=== PATIENT | female | born 1970 | race Caucasian/White ===

== ENCOUNTER 2018-09-07 17:43 | Emergency (ER) | payer MEDICAID, OTHER ==
[~2018-09-07] VITALS: Ht 165.1 cm; Wt 103.4 kg
--- OUTSIDE RECORDS SUMMARY | 2018-09-07 17:49 | XMS REPORT | Continuity of Care Document ---
Author Organization Unknown Address Unknown Allergies There is no data. Medications There is no data. Problems There is no data. Procedures There is no data. Results Test Result Range CMP - 08/13/18 09:25 GLUCOSE 383 mg/dL 65-99 UREA NITROGEN (BUN) 14 mg/dL 7-25 CREATININE 0.71 mg/dL 0.50-1.05 eGFR NON-AFR. INDIAN 99 mL/min/1.73m2 > OR=60 eGFR 115 mL/min/1.73m2 > OR=60 BUN/CREATININE RATIO NOT APPLICABLE (calc) 6-22 SODIUM 128 mmol/L 135-146 POTASSIUM 4.5 mmol/L 3.5-5.3 CHLORIDE 97 mmol/L 98-110 CARBON DIOXIDE 22 mmol/L 20-32 CALCIUM 9.4 mg/dL 8.6-10.4 PROTEIN, TOTAL 6.6 g/dL 6.1-8.1 ALBUMIN 3.9 g/dL 3.6-5.1 GLOBULIN 2.7 g/dL (calc) 1.9-3.7 ALBUMIN/GLOBULIN RATIO 1.4 (calc) 1.0-2.5 BILIRUBIN, TOTAL 0.4 mg/dL 0.2-1.2 ALKALINE PHOSPHATASE 109 U/L 33-130 AST 10 U/L 10-35 ALT 10 U/L 6-29 A1C - 08/13/18 09:25 HEMOGLOBIN A1c 13.3 % of total Hgb <5.7 GLUCOSE, SERUM - 08/30/18 09:58 GLUCOSE 115 mg/dL 65-99 C-PEPTIDE, SERUM - 08/30/18 09:58 C-PEPTIDE 1.31 ng/mL 0.80-3.85 CULTURE, ANAEROBIC AND AEROBIC - 09/01/18 11:00 CULTURE, ANAEROBIC BACTERIA W/GRAM STAIN SEE NOTE NRG CULTURE, AEROBIC BACTERIA SEE NOTE NRG Encounters ACCT No. Visit Date/Time Discharge Status Pt. Type Provider Facility Loc./Unit Complaint [id number] 09/01/2018 11:30:00 09/01/2018 23:59:59 [facility], HUNG Diaz [facility] [id number] 09/01/2018 10:45:00 Document Registration [id number] 08/30/2018 10:00:00 Document Registration [id number] 08/13/2018 10:15:00 Document Registration
[2018-09-07 18:25] VITALS: BP 137/87
[2018-09-07] MEDS ORDERED: KETOROLAC 60 MG/2 ML VIAL IM STA (18:25)
[2018-09-07] MEDS ORDERED: diphenhydrAMINE 50 MG/ML INJ (BENADRYL) IM STA (18:25)
[2018-09-07] MEDS ORDERED: PROMETHAZINE INJ 25 MG/ML (PHENERGAN) AMP IM STA (18:25)
[2018-09-07] MEDS ORDERED: [UNRECOGNIZED DRUG - CODE] (18:29)
[2018-09-07] MEDS ORDERED: BLOO-274 (18:29)
[2018-09-07] MEDS ORDERED: SULF-222 (18:29)
[2018-09-07] MEDS ORDERED: GLUC1KIT (18:29)
[2018-09-07] MEDS ORDERED: CYCL10TA9 (18:29)
[2018-09-07] MEDS ORDERED: BUPR150T20 (18:29)
[2018-09-07] MEDS ORDERED: TRAM50TA2 (18:29)
[2018-09-07] MEDS ORDERED: LORA10TA7 (18:29)
[2018-09-07] MEDS ORDERED: ALPR0.5T7 (18:29)
[2018-09-07] MEDS ORDERED: RANI150T11 (18:29)
--- NOTE | 2018-09-07 18:31 | ED Headache ---
General Chief Complaint: Head/Cervical Problems Stated Complaint: MIGRAINE Nursing Triage Note: Has a migraine that started at noon today when she woke up. Has not had any pain meds today. Does have imitrex at home but states it doesn't do any good if she doesn't take it very earily on in her migraines. Nursing Sepsis Screen: No Definite Risk Source: patient History of Present Illness Date Seen by Provider: Sep 07, 2018 Time Seen by Provider: 18:11 Initial Comments 48 yo F presents with right sided headache since noon. She reports this feels like her typical migraine headache and was present since she woke up at noon. She has no numbness or weakness with it. She does have nausea but no vomiting. She has light and sound sensitivity with the headache which is typical for her migraines. She denies any fever or chills. No new symptoms or anything that feels out of the norm for her Migraine headache. She usually would take Imitrex at home but it is not useful if she can not take it as the headache is building up or with the aura of migraine and since this was a full blown migraine already when she woke up she did not even try the imitrex. Allergies and Home Medications Allergies Coded Allergies: morphine (Verified Allergy, Intermediate, Itching, 09/07/18) May take it with Benadryl Patient Home Medication List Home Medication List Reviewed: Yes Review of Systems Review of Systems Constitutional: No chills, No dizziness, No fever Eyes: Photophobia Ears, Nose, Mouth, Throat: denies ear pain, denies nose discharge, denies e pistaxis Respiratory: cough (chronic); No hemoptysis Cardiovascular: No chest pain Gastrointestinal: nausea; No vomiting Genitourinary: No dysuria, No frequency Musculoskeletal: No neck pain Psychiatric/Neurological: Headache (feels like her usual migraine headache in typical place on right side of head) Past Sodxzmv-Cauvdh-Wfsywx Hx Past Med/Social Hx: Reviewed Nursing Past Med/Soc Hx Patient Social History Alcohol Use: Denies Use Recreational Drug Use: No Smoking Status: Current Everyday Smoker Type Used: Cigarettes 2nd Hand Smoke Exposure: Yes Recent Foreign Travel: No Contact w/Someone Who Travel: No Recent Infectious Disease Expo: No Recent Hopitalizations: No Physical Abuse: No Sexual Abuse: No Mistreated: No Fear: No Seasonal Allergies Seasonal Allergies: No Past Medical History Surgeries: Yes (colonoscopy; carpal tunnel) Section, Gallbladder, Hysterectomy, Orthopedic, Tonsillectomy, Tubal Ligation Respiratory: No Cardiac: Yes High Cholesterol, Hypertension Neurological: Yes 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 oz. 103.369164xp; BMI Method:Stated General Appearance: WD/WN, no apparent distress HEENT: PERRL/EOMI, pharynx normal Neck: non-tender, full range of motion, supple Cardiovascular: normal peripheral pulses, regular rate, rhythm Respiratory: chest non-tender, no respiratory distress, no accessory muscle use, wheezing (mild end expiratory wheezing ) Psychiatric: alert, oriented x 3 Crainal Nerves: normal speech, PERRL Skin: normal color, warm/dry Progress/Results/Core Measures Results/Orders My Orders Orders - MYKEL POLANCO MD Diphenhydramine Injection (Benadryl Inje (09/07/18 18:25) Promethazine Injection (Phenergan Injec (09/07/18 18:25) Ketorolac Injection (Toradol Injection) (09/07/18 18:25) Vital Signs/I&O 09/07/18 09/07/18 17:48 18:25 Temp 96.2 96.2 Pulse 86 86 Resp 16 16 B/P (MAP) 137/87 (104) 137/87 (104) Pulse Ox 98 98 Blood Pressure Mean: 104 Progress Progress Note : Progress Note since this feels like her typical migraine headache and no new symptoms will treat with medicines that have helped in the past; Toradol, Phenergan and Benadryl. Then allow her to go home and rest in a cool dark room and follow up with clinic or return for worsening symptoms Departure Impression Primary Impression: Migraine headache without aura Qualified Codes: G43.009 - Migraine without aura, not intractable, without status migrainosus Disposition: 01 HOME, SELF-CARE Condition: Stable Departure-Patient Inst. Decision time for Depature: 18:31 Referrals: SELFHUNG MD (PCP) Primary Care Physician Patient Instructions: Migraine Headache (DC) Add. Discharge Instructions: Rest in a cool dark room Continue your regular medicines at home. Follow up with clinic as needed for continued concerns All discharge instructions reviewed with patient and/or family. Voiced understanding. MYKEL POLANCO MD Sep 07, 2018 18:31
== END 2018-09-07 18:38 | disposition home or self-care (01) ==
LOC: ER FS 17:45
DX: G43.909 Migraine, unspecified, not intractable, without status migrainosus (principal); E78.00 Pure hypercholesterolemia, unspecified; I10 Essential (primary) hypertension; E11.9 Type 2 diabetes mellitus without complications; F17.210 Nicotine dependence, cigarettes, uncomplicated; Z88.5 Allergy status to narcotic agent; Z88.6 Allergy status to analgesic agent; Z98.890 Other specified postprocedural states; Z90.710 Acquired absence of both cervix and uterus; Z90.89 Acquired absence of other organs; Z98.51 Tubal ligation status
CPT/HCPCS: 96372; 99284

== ENCOUNTER 2018-09-22 17:52 | Emergency (ER) | payer MEDICAID ==
[~2018-09-22] VITALS: Ht 165.1 cm; Wt 106.6 kg
[~2018-09-22 17:52] MED LIST: ALPR0.5T7; BLOO-274; BUPR150T20; CYCL10TA9; GLUC1KIT; LORA10TA7; RANI150T11; SULF-222; TRAM50TA2; [UNRECOGNIZED DRUG - CODE]
--- NOTE | 2018-09-22 18:23 | ED Chest Pain ---
General Stated Complaint: TIGHTNESS IN CHEST Source: patient, RN notes reviewed, old records Exam Limitations: no limitations History of Present Illness Date Seen by Provider: Sep 22, 2018 Time Seen by Provider: 18:21 Allergies and Home Medications Allergies Coded Allergies: morphine (Verified Allergy, Intermediate, Itching, 09/22/18) May take it with Benadryl bupropion (Verified Allergy, Unknown, 09/22/18) Past Riavekt-Ynxvis-Jyyhlh Hx Patient Social History Type Used: Cigarettes 2nd Hand Smoke Exposure: Yes Recent Foreign Travel: No Contact w/Someone Who Travel: No Recent Hopitalizations: No Seasonal Allergies Seasonal Allergies: No Past Medical History Surgeries: Yes (colonoscopy; carpal tunnel) Section, Gallbladder, Hysterectomy, Orthopedic, Tonsillectomy, Tubal Ligation Respiratory: No Cardiac: Yes High Cholesterol, Hypertension 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 oz. 103.290733ma; BMI Method:Stated Progress/Results/Core Measures Results/Orders Lab Results Laboratory Tests Test 09/22/18 18:24 09/22/18 18:30 09/22/18 19:21 09/22/18 21:14 Range/Units White Blood Count 12.5 H 4.3-11.0 10^3/uL Red Blood Count 4.83 4.35-5.85 10^6/uL Hemoglobin 15.4 11.5-16.0 G/DL Hematocrit 46 35-52 % Mean Corpuscular Volume 94 80-99 FL Mean Corpuscular Hemoglobin 32 25-34 PG Mean Corpuscular Hemoglobin Concent 34 32-36 G/DL Red Cell Distribution Width 12.7 10.0-14.5 % Platelet Count 259 130-400 10^3/uL Mean Platelet Volume 11.0 H 7.4-10.4 FL Neutrophils (%) (Auto) 58 42-75 % Lymphocytes (%) (Auto) 32 12-44 % Monocytes (%) (Auto) 7 0-12 % Eosinophils (%) (Auto) 2 0-10 % Basophils (%) (Auto) 1 0-10 % Neutrophils # (Auto) 7.2 1.8-7.8 X 10^3 Lymphocytes # (Auto) 4.0 1.0-4.0 X 10^3 Monocytes # (Auto) 0.9 0.0-1.0 X 10^3 Eosinophils # (Auto) 0.2 0.0-0.3 10^3/uL Basophils # (Auto) 0.1 0.0-0.1 10^3/uL Prothrombin Time 12.0 L 12.2-14.7 SEC INR Comment 0.9 0.8-1.4 Activated Partial Thromboplast Time 25 24-35 SEC Sodium Level 140 135-145 MMOL/L Potassium Level 4.2 3.6-5.0 MMOL/L Chloride Level 101 98-107 MMOL/L Carbon Dioxide Level 22 21-32 MMOL/L Anion Gap 17 H 5-14 MMOL/L Blood Urea Nitrogen 18 7-18 MG/DL Creatinine 0.55 L 0.60-1.30 MG/DL Estimat Glomerular Filtration Rate > 60 BUN/Creatinine Ratio 33 Glucose Level 239 H 70-105 MG/DL Calcium Level 9.0 8.5-10.1 MG/DL Corrected Calcium 9.2 8.5-10.1 MG/DL Magnesium Level 2.0 1.8-2.4 MG/DL Total Bilirubin 0.2 0.1-1.0 MG/DL Aspartate Amino Transf (AST/SGOT) 14 5-34 U/L Alanine Aminotransferase (ALT/SGPT) 17 0-55 U/L Alkaline Phosphatase 92 40-136 U/L Troponin I 0.33 *H <0.30 NG/ML Pro-B-Type Natriuretic Peptide 226.0 H <75.0 PG/ML Total Protein 6.8 6.4-8.2 GM/DL Albumin 3.8 3.2-4.5 GM/DL Lipase 17 8-78 U/L Urine Color YELLOW Urine Clarity CLEAR Urine pH 5.5 5-9 Urine Specific [place] >1.030 1.016-1.022 Urine Protein NEGATIVE NEGATIVE Urine Glucose (UA) NEGATIVE NEGATIVE Urine Ketones TRACE H NEGATIVE Urine Nitrite NEGATIVE NEGATIVE Urine Bilirubin 1+ H NEGATIVE Urine Urobilinogen 0.2 NORMAL MG/DL Urine Leukocyte Esterase NEGATIVE NEGATIVE Urine RBC (Auto) NEGATIVE NEGATIVE Urine RBC NONE /HPF Urine WBC NONE /HPF Urine Squamous Epithelial Cells 10-25 H /HPF Urine Crystals NONE /LPF Urine Bacteria NONE /HPF Urine Casts NONE /LPF Urine Mucus SMALL H /LPF Urine Culture Indicated NO Urine Opiates Screen NEGATIVE NEGATIVE Urine Oxycodone Screen NEGATIVE NEGATIVE Urine Methadone Screen NEGATIVE NEGATIVE Urine Propoxyphene Screen NEGATIVE NEGATIVE Urine Barbiturates Screen NEGATIVE NEGATIVE Ur Tricyclic Antidepressants Screen NEGATIVE NEGATIVE Urine Phencyclidine Screen NEGATIVE NEGATIVE Urine Amphetamines Screen NEGATIVE NEGATIVE Urine Methamphetamines Screen NEGATIVE NEGATIVE Urine Benzodiazepines Screen NEGATIVE NEGATIVE Urine Cocaine Screen NEGATIVE NEGATIVE Urine Cannabinoids Screen NEGATIVE NEGATIVE D-Dimer 0.42 0.00-0.49 UG/ML My Orders Orders - ENRIQUETA GREER DO Ed Iv/Invasive Line Start (09/22/18 18:23) Ekg Tracing (09/22/18 18:23) Cbc With Automated Diff (09/22/18 18:23) Comprehensive Metabolic Panel (09/22/18 18:23) Drug Screen Stat (Urine) (09/22/18 18:23) Lipase (09/22/18 18:23) Magnesium (09/22/18 18:23) Protime With Inr (09/22/18 18:23) Partial Thromboplastin Time (09/22/18 18:23) Troponin I (09/22/18 18:23) Ua Culture If Indicated (09/22/18 18:23) Probnp Fs (09/22/18 18:23) Chest 1 View Ap/Pa Only (09/22/18 18:23) Ketorolac Injection (Toradol Injection) (09/22/18 18:30) Fibrin Degradation Products (09/22/18 19:21) Aspirin Chewable Tablet (Baby Aspirin Ch (09/22/18 20:45) Troponin I (09/22/18 20:58) Medications Given in ED Current Medications Medications Dose Ordered Sig/Zulema Route Start Time Stop Time Status Last Admin Dose Admin Aspirin 324 mg ONCE ONCE PO 09/22/18 20:45 09/22/18 20:46 DC 09/22/18 20:49 324 MG Ketorolac Tromethamine 15 mg ONCE ONCE IVP 09/22/18 18:30 09/22/18 18:31 DC 09/22/18 19:05 15 MG Vital Signs/I&O 09/22/18 18:07 Temp 97.1 Pulse 90 Resp 21 B/P (MAP) 149/58 (88) Pulse Ox 94 O2 Delivery Room Air Departure Impression Primary Impression: Chest pain Additional Impressions: PVCs (premature ventricular contractions) Elevated troponin I level Disposition: 02 XFER SHT-TRM HOSP Condition: Stable Transfer Time Spoke to Accepting Phy: 21:25 Transfer Progress Notes Patient going to be transferred to [facility] to a Dr. Justin Aguayo. Transfer Facility: [facility] Method of Transfer: EMS Departure-Patient Inst. Referrals: SELFHUNG MD (PCP) Primary Care Physician ENRIQUETA GREER DO Sep 22, 2018 18:23
[2018-09-22] MEDS ORDERED: KETOROLAC 30 MG/ML VIAL IVP ONE (18:30)
[2018-09-22 18:39] LABS: WHITE BLOOD COUNT 12.5 10^3/uL (4.3-11.0)
[2018-09-22 18:40] LABS: BASOPHILS # (AUTO) 0.1 10^3/uL (0.0-0.1); BASOPHILS % (AUTO) 1 % (0-10); EOSINOPHILS # (AUTO) 0.2 10^3/uL (0.0-0.3); EOSINOPHILS % (AUTO) 2 % (0-10); HEMATOCRIT 46 % (35-52); HEMOGLOBIN 15.4 G/DL (11.5-16.0); LYMPHOCYTES % (AUTO) 32 % (12-44); MEAN CORPUSCULAR HEMOGLOBIN 32 PG (25-34); MEAN CORPUSCULAR HGB CONC 34 G/DL (32-36); MEAN CORPUSCULAR VOLUME 94 FL (80-99); MONOCYTES # (AUTO) 0.9 X 10^3 (0.0-1.0); MONOCYTES % (AUTO) 7 % (0-12); NEUTROPHILS # (AUTO) 7.2 X 10^3 (1.8-7.8); NEUTROPHILS % (AUTO) 58 % (42-75); PLATELET COUNT 259 10^3/uL (130-400); RED CELL DISTRIBUTION WIDTH 12.7 % (10.0-14.5)
[2018-09-22 18:59] LABS: CLARITY,URINE CLEAR; COLOR,URINE YELLOW; GLUCOSE, URINE (UA) NEGATIVE (NEGATIVE); KETONES,URINE TRACE (NEGATIVE); NITRITE,URINE NEGATIVE (NEGATIVE); PH,URINE 5.5 (5-9); PROTEIN,URINE NEGATIVE (NEGATIVE)
[2018-09-22 19:00] LABS: BILIRUBIN,URINE 1+ (NEGATIVE); LEUKOCYTE ESTERASE ,URINE NEGATIVE (NEGATIVE); UROBILINOGEN,URINE 0.2 MG/DL (NORMAL)
--- NOTE | 2018-09-22 19:00 | NUR ---
Montserrat caridad in ED - 09/22/18 at 1924 by [id number] assumed care of this patient at this time. patient is stable at this time, stating she feels much better and is ready to go home.
--- NOTE | 2018-09-22 19:00 | NUR ---
assumed care of this patient at this time. patient is stable at this time, going to raidiology after toradol administration
[2018-09-22 19:05] LABS: AMPHETAMINE SCREEN, URINE NEGATIVE (NEGATIVE); BARBITURATE SCREEN URINE NEGATIVE (NEGATIVE); BENZODIAZEPINES SCREEN URINE NEGATIVE (NEGATIVE); CANNABINOID SCREEN, URINE NEGATIVE (NEGATIVE); COCAINE SCREEN URINE NEGATIVE (NEGATIVE); METHADONE STAT NEGATIVE (NEGATIVE); METHAMPHETAMINE SCREEN URINE S NEGATIVE (NEGATIVE); OPIATE SCREEN URINE NEGATIVE (NEGATIVE); OXYCODONE STAT NEGATIVE (NEGATIVE); PROPOXYPHENE STAT NEGATIVE (NEGATIVE); TRICYCLIC ANTIDEPRESSANTS SCRE NEGATIVE (NEGATIVE)
[2018-09-22 19:09] LABS: ALKALINE PHOSPHATASE 92 U/L (40-136); BILIRUBIN,TOTAL 0.2 MG/DL (0.1-1.0); BUN/CREATININE RATIO 33; CARBON DIOXIDE 22 MMOL/L (21-32); CHLORIDE 101 MMOL/L (98-107); CREATININE SERUM 0.55 MG/DL (0.60-1.30); GFR ESTIMATED > 60; GLUCOSE 239 MG/DL (70-105); POTASSIUM 4.2 MMOL/L (3.6-5.0); SODIUM 140 MMOL/L (135-145)
[2018-09-22 19:10] LABS: ALANINE AMINOTRANSFERASE 17 U/L (0-55); ALBUMIN 3.8 GM/DL (3.2-4.5); LIPASE 17 U/L (8-78); TOTAL PROTEIN 6.8 GM/DL (6.4-8.2)
--- NOTE | 2018-09-22 19:14 | Diagnostic Imaging Report ---
PATIENT HISTORY: Chest pain. TECHNIQUE: Single frontal view of the chest. COMPARISON: None. FINDINGS: The lung volumes are normal. No focal consolidation is seen. No large pleural effusion or pneumothorax is seen. The cardiomediastinal silhouette is normal in size and contour. No acute osseous abnormality is seen. IMPRESSION: No acute pulmonary abnormality seen. Dictated by: Dictated on workstation # [id number]
--- OUTSIDE RECORDS SUMMARY | 2018-09-22 19:14 | XMS REPORT | Continuity of Care Document ---
Author Organization Unknown Address Unknown Allergies There is no data. Medications There is no data. Problems There is no data. Procedures There is no data. Results Test Result Range CMP - 08/13/18 09:25 GLUCOSE 383 mg/dL 65-99 UREA NITROGEN (BUN) 14 mg/dL 7-25 CREATININE 0.71 mg/dL 0.50-1.05 eGFR NON-AFR. BRITISH 99 mL/min/1.73m2 > OR=60 eGFR 115 mL/min/1.73m2 [...] - 08/30/18 09:58 C-PEPTIDE 1.31 ng/mL 0.80-3.85 SUREPATH PAP RFX HPV mRNA E6/E7 - 09/01/18 10:51 CLINICAL INFORMATION: NRG LMP: NRG PREV. PAP: NRG PREV. BX: NRG SOURCE: Vagina NRG STATEMENT OF ADEQUACY: NRG INTERPRETATION/RESULT: NRG PROTECTION AGENT: NRG COMMENT NRG CULTURE, ANAEROBIC AND AEROBIC - 09/01/18 11:00 CULTURE, ANAEROBIC BACTERIA W/GRAM STAIN SEE NOTE NRG CULTURE, AEROBIC BACTERIA SEE NOTE NRG Encounters ACCT No. Visit Date/Time Discharge Status Pt. Type Provider Facility Loc./Unit Complaint [id number] 09/09/2018 11:00:00 09/09/2018 23:59:59 [facility] Outpatient SELF, HUNG Diaz [facility] [id number] 09/01/2018 10:45:00 Document Registration [id number] 08/30/2018 10:00:00 Document Registration [id number] 08/13/2018 10:15:00 Document Registration
--- NOTE | 2018-09-22 19:18 | NUR ---
Note caridad in ED - 09/22/18 at 1923 by [id number] patient discharge instructiosn reviewed with patient and caregiver, denies questions at this time. patient is escorted via own caregiver via wheel chair to private vehicle.
[2018-09-22 19:25] LABS: INR 0.9 (0.8-1.4)
[2018-09-22] MEDS ORDERED: GLIM1TAB (19:47)
[2018-09-22] MEDS ORDERED: VARE1TAB21 (19:47)
[2018-09-22] MEDS ORDERED: INSA70301U (19:47)
[2018-09-22] MEDS ORDERED: ASPIRIN 81 MG CHEW (CHILDREN'S ASA) PO ONE (20:45)
[2018-09-22] MEDS ORDERED: ENOXAPARIN 60 MG/0.6 ML (LOVENOX) SYR ONE ×2 (21:43→21:46)
[2018-09-22] MEDS ORDERED: ENOXAPARIN 60 MG/0.6 ML (LOVENOX) SYR SC ONE (21:45)
[2018-09-22 22:28] VITALS: BP 127/89
== END 2018-09-22 22:28 | disposition short-term general hospital (02) ==
LOC: EDUNIT# 17:52 → ER FS 17:53
DX: I49.3 Ventricular premature depolarization (principal); R74.8 Abnormal levels of other serum enzymes; I10 Essential (primary) hypertension; E78.00 Pure hypercholesterolemia, unspecified; G43.909 Migraine, unspecified, not intractable, without status migrainosus; E11.9 Type 2 diabetes mellitus without complications; Z77.22 Contact with and (suspected) exposure to environmental tobacco smoke (acute) (chronic); Z90.710 Acquired absence of both cervix and uterus; Z90.89 Acquired absence of other organs; Z98.51 Tubal ligation status
CPT/HCPCS: 36415; 71045; 80053; 80306; 81000; 82962; 83690; 83735; 83880; 84484; 85025; 85379; 85610; 85730; 93005; 96372; 96374

== ENCOUNTER → 2018-11-04 | Outpatient (CLI) | payer MEDICAID ==
[~2018-11-04] MED LIST changes: +GLIM1TAB; +INSA70301U; +VARE1TAB21
== END ==
LOC: CARD 10:50
PROVIDERS: ATTEND Nurse Practitioner
DX: I49.9 Cardiac arrhythmia, unspecified (principal)
CPT/HCPCS: 93225; 93226

== ENCOUNTER 2018-11-26 23:21 | Emergency (ER) | payer MEDICAID ==
[~2018-11-26] VITALS: Ht 165.1 cm; Wt 108.9 kg
[2018-11-26 23:52] LABS: HEMATOCRIT 44 % (35-52); HEMOGLOBIN 14.8 G/DL (11.5-16.0); LYMPHOCYTES % (AUTO) 35 % (12-44); MEAN CORPUSCULAR HEMOGLOBIN 32 PG (25-34); MEAN CORPUSCULAR HGB CONC 34 G/DL (32-36); MEAN CORPUSCULAR VOLUME 95 FL (80-99); MEAN PLATELET VOLUME 11.3 FL (7.4-10.4); NEUTROPHILS % (AUTO) 55 % (42-75); PLATELET COUNT 237 10^3/uL (130-400); RED CELL DISTRIBUTION WIDTH 12.6 % (10.0-14.5); WHITE BLOOD COUNT 11.7 10^3/uL (4.3-11.0)
[2018-11-26 23:53] LABS: BASOPHILS # (AUTO) 0.1 10^3/uL (0.0-0.1); BASOPHILS % (AUTO) 1 % (0-10); EOSINOPHILS # (AUTO) 0.2 10^3/uL (0.0-0.3); EOSINOPHILS % (AUTO) 2 % (0-10); LYMPHOCYTES # (AUTO) 4.1 X 10^3 (1.0-4.0); MONOCYTES # (AUTO) 0.8 X 10^3 (0.0-1.0); MONOCYTES % (AUTO) 7 % (0-12); NEUTROPHILS # (AUTO) 6.5 X 10^3 (1.8-7.8)
[2018-11-27] MEDS ORDERED: FAMOTIDINE 20MG/2ML IV (PEPCID) IVP ONE
[2018-11-27] MEDS ORDERED: ASPIRIN 81 MG CHEW (CHILDREN'S ASA) PO ONE
[2018-11-27 00:17] LABS: ALANINE AMINOTRANSFERASE 13 U/L (0-55); ALBUMIN 3.7 GM/DL (3.2-4.5); ALKALINE PHOSPHATASE 95 U/L (40-136); BILIRUBIN,TOTAL 0.2 MG/DL (0.1-1.0); BUN/CREATININE RATIO 25; CALCIUM 9.1 MG/DL (8.5-10.1); CARBON DIOXIDE 23 MMOL/L (21-32); CHLORIDE 105 MMOL/L (98-107); CREATININE SERUM 0.68 MG/DL (0.60-1.30); GFR ESTIMATED > 60; GLUCOSE 144 MG/DL (70-105); POTASSIUM 4.2 MMOL/L (3.6-5.0); SODIUM 144 MMOL/L (135-145); TOTAL PROTEIN 6.5 GM/DL (6.4-8.2)
[2018-11-27] MEDS ORDERED: NITROGLYCERIN 0.4 MG SL TABS BTL 25'S SL ONE (00:30)
--- NOTE | 2018-11-27 02:50 | ED Chest Pain ---
General Chief Complaint: Chest Pain Stated Complaint: SOA, CHEST PAIN Nursing Triage Note: Patient states that she began having chest pain just prior to arrival. Patient states that she is having mid sternal chest pressure that radiates to her left arm. Patient was laying in bed when the pain started and she began having shortness of breath. Patient rates her pain at an 8 at this time. Nursing Sepsis Screen: No Definite Risk Source: patient Exam Limitations: no limitations History of Present Illness Date Seen by Provider: Nov 27, 2018 Time Seen by Provider: 00:00 Initial Comments Patient is a bsy-zack-qos female with history of hypertension, diabetes, CAD with recent STEMI treated at [facility] who presents with left-sided chest pain/squeezing starting while lying down for bed 1 hour prior to arrival. Patient reports mild dyspnea and nausea. Denies exertional symptoms prior to bedtime. Patient did not take nitroglycerin. Reports occasional palpitation with history of PVCs. Patient was admitted to [facility] for sore symptoms approximately 2 months ago. She states she had any stress test which was negative and was discharged home within 24 hours with a prescription for metoprolol and nitroglycerin. Patient did not take nitroglycerin prior to ED arrival. Denies abdominal pain, vomiting, hematemesis, AND GROUND ground emesis. Patient states she ATE HAMBURGER prior to bedtime Timing/Duration: 1 hour Severity/Quality: moderate Radiation: no radiation Activities at Onset: rest, sleep Prior CP/Workup: angina Modifying Factors: improves with antacids ASA po MIDDLE SCHOOL DIRECTOR: No NTG SL MIDDLE SCHOOL DIRECTOR: No Associated Symptoms: heartburn Allergies and Home Medications Allergies Coded Allergies: morphine (Verified Allergy, Intermediate, Itching, 09/22/18) May take it with Benadryl bupropion (Verified Allergy, Unknown, 09/22/18) Patient Home Medication List Home Medication List Reviewed: Yes Review of Systems Review of Systems Constitutional: see HPI EENTM: See HPI Respiratory: See HPI Cardiovascular: See HPI Gastrointestinal: See HPI Genitourinary: See HPI Musculoskeletal: see HPI Skin: see HPI Psychiatric/Neurological: See HPI Endocrine: See HPI Hematologic/Lymphatic: See HPI Past Tpkobhf-Wldocs-Zzddbq Hx Past Med/Social Hx: Reviewed Nursing Past Med/Soc Hx Patient Social History Alcohol Use: Denies Use Recreational Drug Use: No Type Used: Cigarettes 2nd Hand Smoke Exposure: Yes Recent Foreign Travel: No Contact w/Someone Who Travel: No Recent Infectious Disease Expo: No Recent Hopitalizations: No Physical Abuse: No Sexual Abuse: No Mistreated: No Fear: No Seasonal Allergies Seasonal Allergies: No Past Medical History Surgeries: Yes (colonoscopy; carpal tunnel) Section, Gallbladder, Hysterectomy, Orthopedic, Tonsillectomy, Tubal Ligation Respiratory: Yes COPD Cardiac: Yes High Cholesterol, Hypertension Neurological: 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 0oz. 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 Norm as Tested Skin: Normal Color Lymphatic: No Adenopathy Focused Exam Sepsis Stage: Ruled Out Progress/Results/Core Measures Results/Orders Lab Results Laboratory Tests Test 11/26/18 23:30 11/27/18 01:39 Range/Units White Blood Count 11.7 H 4.3-11.0 10^3/uL Red Blood Count 4.58 4.35-5.85 10^6/uL Hemoglobin 14.8 11.5-16.0 G/DL Hematocrit 44 35-52 % Mean Corpuscular Volume 95 80-99 FL Mean Corpuscular Hemoglobin 32 25-34 PG Mean Corpuscular Hemoglobin Concent 34 32-36 G/DL Red Cell Distribution Width 12.6 10.0-14.5 % Platelet Count 237 130-400 10^3/uL Mean Platelet Volume 11.3 H 7.4-10.4 FL Neutrophils (%) (Auto) 55 42-75 % Lymphocytes (%) (Auto) 35 12-44 % Monocytes (%) (Auto) 7 0-12 % Eosinophils (%) (Auto) 2 0-10 % Basophils (%) (Auto) 1 0-10 % Neutrophils # (Auto) 6.5 1.8-7.8 X 10^3 Lymphocytes # (Auto) 4.1 H 1.0-4.0 X 10^3 Monocytes # (Auto) 0.8 0.0-1.0 X 10^3 Eosinophils # (Auto) 0.2 0.0-0.3 10^3/uL Basophils # (Auto) 0.1 0.0-0.1 10^3/uL D-Dimer 0.41 0.00-0.49 UG/ML Sodium Level 144 135-145 MMOL/L Potassium Level 4.2 3.6-5.0 MMOL/L Chloride Level 105 98-107 MMOL/L Carbon Dioxide Level 23 21-32 MMOL/L Anion Gap 16 H 5-14 MMOL/L Blood Urea Nitrogen 17 7-18 MG/DL Creatinine 0.68 0.60-1.30 MG/DL Estimat Glomerular Filtration Rate > 60 BUN/Creatinine Ratio 25 Glucose Level 144 H 70-105 MG/DL Calcium Level 9.1 8.5-10.1 MG/DL Corrected Calcium 9.3 8.5-10.1 MG/DL Total Bilirubin 0.2 0.1-1.0 MG/DL Aspartate Amino Transf (AST/SGOT) 14 5-34 U/L Alanine Aminotransferase (ALT/SGPT) 13 0-55 U/L Alkaline Phosphatase 95 40-136 U/L Troponin I < 0.30 < 0.30 <0.30 NG/ML Pro-B-Type Natriuretic Peptide 299.5 H <75.0 PG/ML Total Protein 6.5 6.4-8.2 GM/DL Albumin 3.7 3.2-4.5 GM/DL My Orders Orders - RDUDY MORRIS DO Cbc With Automated Diff (11/26/18 23:37) Comprehensive Metabolic Panel (11/26/18 23:37) Troponin I (11/26/18 23:37) Ekg Tracing (11/26/18 23:37) Chest 1 View Ap/Pa Only (11/26/18 23:37) Probnp Fs (8/30/19 23:45) Fibrin Degradation Products (11/26/18 23:45) Famotidine Injection (Pepcid Injection) (11/27/18 00:00) Aspirin Chewable Tablet (Baby Aspirin Ch (11/27/18 00:00) Nitroglycerin 0.4 Mg Btl 25's (Nitrostat (11/27/18 00:30) Troponin I (11/27/18 01:30) Medications Given in ED Current Medications Medications Dose Ordered Sig/Zulema Route Start Time Stop Time Status Last Admin Dose Admin Aspirin 243 mg ONCE ONCE PO 11/27/18 00:00 11/27/18 00:01 DC 11/27/18 00:05 243 MG Famotidine 20 mg ONCE ONCE IVP 11/27/18 00:00 11/27/18 00:01 DC 11/27/18 00:04 20 MG Nitroglycerin 1 BOTTLE ONCE ONCE SL 11/27/18 00:30 11/27/18 00:31 DC 11/27/18 00:32 0.4 MG Vital Signs/I&O 11/26/18 23:23 Temp 97.8 Pulse 54 Resp 22 B/P (MAP) 136/60 (85) Pulse Ox 94 O2 Delivery Room Air Blood Pressure Mean: 85 Departure Communication (Admissions) Family Conversation EKG, sinus tach, rate 112, frequent PVCs, chest x-ray, I reviewed. Patient's symptoms partial improvement with Pepcid and completely resolved with nitroglycerin. Repeat troponin is negative. Given the patient was prescribed nitroglycerin and symptoms resolved with nitroglycerin 1 and her repeat troponin is negative,, uncomfortable discharging the patient home with instructions to follow recent instructions regarding per Lisa sales office assistant. Patient's also prescription to not eat prior to bedtime. Return precautions reviewed. Patient verbalizes understanding and agreement discharge instructions prior to departure. Impression Primary Impression: Chest pain Disposition: HOME, SELF-CARE Condition: Stable Departure-Patient Inst. Referrals: SELF,HUNG LEE (PCP/Family) Primary Care Physician Patient Instructions: Angina (DC), Palpitations (DC) Add. Discharge Instructions: Please continue home medications and take nitroglycerin instructed by your sales office assistant. All discharge instructions reviewed with patient and/or family. Voiced understanding. RUDDY MORRIS DO Nov 27, 2018 02:50
[2018-11-27 02:55] VITALS: BP 122/74
[2018-11-27] MEDS ORDERED: ACETAMINOPHEN 500 MG TAB (TYLENOL) PO ONE (03:00)
--- NOTE | 2018-11-27 07:18 | Diagnostic Imaging Report ---
Indication: Chest pain and dyspnea. Comparison: 09/22/2018. Discussion: Single portable upright view of the chest was obtained. Stable normal heart size. No focal consolidation, pleural fluid, or pneumothorax. No osseous abnormality. Impression: 1. Negative portable chest. Dictated by: Dictated on workstation # [id number]
== END 2018-11-27 02:55 | disposition home or self-care (01) ==
LOC: EDUNIT# 23:21 → ER FS 23:22
DX: R07.2 Precordial pain (principal); I10 Essential (primary) hypertension; E11.9 Type 2 diabetes mellitus without complications; I25.10 Atherosclerotic heart disease of native coronary artery without angina pectoris; I25.2 Old myocardial infarction; J44.9 Chronic obstructive pulmonary disease, unspecified; E78.00 Pure hypercholesterolemia, unspecified; G43.909 Migraine, unspecified, not intractable, without status migrainosus; Z88.5 Allergy status to narcotic agent; Z88.8 Allergy status to other drugs, medicaments and biological substances; Z77.22 Contact with and (suspected) exposure to environmental tobacco smoke (acute) (chronic); Z90.710 Acquired absence of both cervix and uterus; Z90.89 Acquired absence of other organs; Z98.51 Tubal ligation status
CPT/HCPCS: 36415; 71045; 80053; 83880; 84484; 85025; 85379; 93005

== ENCOUNTER 2018-11-29 06:29 | Day surgery (SDC) | payer MEDICAID ==
[~2018-11-29] VITALS: Ht 165.1 cm; Wt 108.9 kg
[2018-11-29] MEDS ORDERED: ONDANSETRON 4 MG/2 ML (SDV) Z0FRAN IVP ONE (06:45)
[2018-11-29] MEDS ORDERED: NITROGLYCERIN 0.4 MG SL TABS BTL 25'S SL PRN (06:45)
[2018-11-29] MEDS ORDERED: fentaNYL INJECTION 100 MCG/2 ML AMP IVP ONE ×2 (06:45→07:45)
[2018-11-29 06:47] LABS: BASOPHILS # (AUTO) 0.1 10^3/uL (0.0-0.1); BASOPHILS % (AUTO) 1 % (0-10); EOSINOPHILS # (AUTO) 0.2 10^3/uL (0.0-0.3); EOSINOPHILS % (AUTO) 2 % (0-10); HEMATOCRIT 41 % (35-52); HEMOGLOBIN 13.8 G/DL (11.5-16.0); LYMPHOCYTES # (AUTO) 4.3 X 10^3 (1.0-4.0); LYMPHOCYTES % (AUTO) 26 % (12-44); MEAN CORPUSCULAR HEMOGLOBIN 32 PG (25-34); MEAN CORPUSCULAR HGB CONC 34 G/DL (32-36); MEAN CORPUSCULAR VOLUME 96 FL (80-99); MEAN PLATELET VOLUME 11.3 FL (7.4-10.4); MONOCYTES # (AUTO) 0.9 X 10^3 (0.0-1.0); MONOCYTES % (AUTO) 5 % (0-12); NEUTROPHILS % (AUTO) 67 % (42-75); PLATELET COUNT 203 10^3/uL (130-400); RED CELL DISTRIBUTION WIDTH 12.5 % (10.0-14.5); WHITE BLOOD COUNT 16.6 10^3/uL (4.3-11.0)
--- NOTE | 2018-11-29 06:50 | ED Chest Pain ---
General Chief Complaint: Chest Pain Stated Complaint: CHEST PAIN Nursing Triage Note: Patient states that she began having chest pain at home and took 2 nitros. Pain did not resolve and patient called 911. Patient states that she has a cardiac history. Patient is complaining of mid-sternal chest pain with radiation to the left arm and neck. Patient does state that the pain gets worse when the areas are palpated. Patient is rating her pain at a 10. Nursing Sepsis Screen: No Definite Risk Source: patient, EMS Exam Limitations: no limitations History of Present Illness Date Seen by Provider: Nov 29, 2018 Time Seen by Provider: 06:26 Initial Comments Patient presents to ER by EMS with chief complaint of chest pain and possible lateral and inferior ST elevation. She reported starting having chest pain across her chest as well as under her left jaw and into her left shoulder starting about half hour prior to arrival. She is not sure if she has a history of coronary disease but she does have a history of 2 strokes, hypertension, smoking, diabetes, hyperlipidemia, HCV. She took 2 nitroglycerin at home and this seemed to help for a couple seconds. Her chest pain reproducible to direct palpation. She's been having a productive cough lately but no fevers. She has nauseated without vomiting. No palpitations, syncope or swelling in the hands or feet. Previous visit from 3 days ago she gave a history that she was diagnosed with a STEMI at [facility] that they gave her a stress test and sent her home with metoprolol and nitroglycerin the next day. Since that visit she has not been able to follow-up with either primary care or cardiology because it was over the weekend. Last time she took her blood sugar was 230 last night. She has a history of frequent PVCs. She is adopted and does not know her familial history. Allergies and Home Medications Allergies Coded Allergies: morphine (Verified Allergy, Intermediate, Itching, 09/22/18) May take it with Benadryl bupropion (Verified Allergy, Unknown, 09/22/18) Patient Home Medication List Home Medication List Reviewed: Yes Review of Systems Review of Systems Constitutional: No chills, No diaphoresis EENTM: No Blurred Vision, No Double Vision Respiratory: Cough, Shortness of Air Cardiovascular: See HPI, Chest Pain; Denies Edema, Denies Palpitations, Denies Syncope Gastrointestinal: Denies Abdominal Pain, Denies Nausea Genitourinary: Denies Burning, Denies Discharge Musculoskeletal: No back pain, No joint pain Skin: No pruritus, No rash Psychiatric/Neurological: Denies Headache, Denies Numbness Past Recinsu-Igdorf-Ecykks Hx Patient Social History Alcohol Use: Denies Use Smoking Status: Current Everyday Smoker Type Used: Cigarettes 2nd Hand Smoke Exposure: Yes Recent Foreign Travel: No Contact w/Someone Who Travel: No Recent Infectious Disease Expo: No Recent Hopitalizations: No Seasonal Allergies Seasonal Allergies: No Past Medical History Surgeries: Yes (colonoscopy; carpal tunnel) Section, Gallbladder, Hysterectomy, Orthopedic, Tonsillectomy, Tubal Ligation Respiratory: Yes COPD Cardiac: Yes High Cholesterol, Hypertension Neurological: Yes Headaches /Migraines [employer] History: Hysterectomy, Tubal Ligation Genitourinary: No Gastrointestinal: No Musculoskeletal: No Endocrine: Yes Diabetes, Insulin dep HEENT: No Cancer: No Psychosocial: No Integumentary: No Blood Disorders: No Adverse Reaction/Blood Tranf: No Physical Exam Vital Signs Vital Signs - First Documented 11/29/18 11/29/18 06:29 06:40 Temp 97.2 Pulse 78 Resp 21 B/P (MAP) 128/51 (76) Pulse Ox 95 O2 Delivery Nasal Cannula O2 Flow Rate 2.00 FiO2 95 Capillary Refill : Less Than 3 Seconds Height, Weight, BMI Height: 5'5.00" Weight: 240lbs. 0oz. 108.194225wo; BMI Method:Stated General Appearance: WD/WN, Anxious, Mild Distress HEENT: PERRL/EOMI, Pharynx Normal, Moist Mucous Membranes Neck: Full Range of Motion, Normal Inspection Respiratory: No Chest Non Tender; Lungs Clear, Normal Breath Sounds, No Accessory Muscle Use, No Respiratory Distress, Other (chest pain is reproducible by direct palpation of the chest wall) Cardiovascular: Regular Rate, Rhythm, No Edema, Normal Peripheral Pulses Gastrointestinal: Normal Bowel Sounds, No Organomegaly, Non Tender, Soft Extremity: Normal Capillary Refill, Normal Inspection, No Pedal Edema Neurologic/Psychiatric: Alert, Oriented x3, No Motor/Sensory Deficits Progress/Results/Core Measures Results/Orders Lab Results Laboratory Tests Test 11/29/18 06:37 11/29/18 06:40 Range/Units White Blood Count 16.6 H 4.3-11.0 10^3/uL Red Blood Count 4.29 L 4.35-5.85 10^6/uL Hemoglobin 13.8 11.5-16.0 G/DL Hematocrit 41 35-52 % Mean Corpuscular Volume 96 80-99 FL Mean Corpuscular Hemoglobin 32 25-34 PG Mean Corpuscular Hemoglobin Concent 34 32-36 G/DL Red Cell Distribution Width 12.5 10.0-14.5 % Platelet Count 203 130-400 10^3/uL Mean Platelet Volume 11.3 H 7.4-10.4 FL Neutrophils (%) (Auto) 67 42-75 % Lymphocytes (%) (Auto) 26 12-44 % Monocytes (%) (Auto) 5 0-12 % Eosinophils (%) (Auto) 2 0-10 % Basophils (%) (Auto) 1 0-10 % Neutrophils # (Auto) 11.0 H 1.8-7.8 X 10^3 Lymphocytes # (Auto) 4.3 H 1.0-4.0 X 10^3 Monocytes # (Auto) 0.9 0.0-1.0 X 10^3 Eosinophils # (Auto) 0.2 0.0-0.3 10^3/uL Basophils # (Auto) 0.1 0.0-0.1 10^3/uL Neutrophils % (Manual) 74 % Lymphocytes % (Manual) 15 % Monocytes % (Manual) 5 % Eosinophils % (Manual) 3 % Band Neutrophils 1 % Atypical Lymphocytes 2 % Erythrocyte Sedimentation Rate 18 0-30 MM/HR Prothrombin Time 12.5 12.2-14.7 SEC INR Comment 0.9 0.8-1.4 Activated Partial Thromboplast Time 22 L 24-35 SEC D-Dimer 0.71 H 0.00-0.49 UG/ML Sodium Level 140 135-145 MMOL/L Potassium Level 4.5 3.6-5.0 MMOL/L Chloride Level 105 98-107 MMOL/L Carbon Dioxide Level 22 21-32 MMOL/L Anion Gap 13 5-14 MMOL/L Blood Urea Nitrogen 14 7-18 MG/DL Creatinine 0.62 0.60-1.30 MG/DL Estimat Glomerular Filtration Rate > 60 BUN/Creatinine Ratio 23 Glucose Level 264 H 70-105 MG/DL Calcium Level 9.0 8.5-10.1 MG/DL Corrected Calcium 9.2 8.5-10.1 MG/DL Magnesium Level 1.8 1.6-2.4 MG/DL Total Bilirubin < 0.2 0.1-1.0 MG/DL Aspartate Amino Transf (AST/SGOT) 19 5-34 U/L Alanine Aminotransferase (ALT/SGPT) 21 0-55 U/L Alkaline Phosphatase 83 40-136 U/L Myoglobin < 21.0 10.0-92.0 NG/ML Troponin I 0.30 <0.30 NG/ML Pro-B-Type Natriuretic Peptide 1398.0 H <75.0 PG/ML Total Protein 6.5 6.4-8.2 GM/DL Albumin 3.7 3.2-4.5 GM/DL Lipase 19 8-78 U/L Glucometer 253 H 70-110 MG/DL My Orders Orders - CELESTE WHEELER Cbc With Automated Diff (11/29/18 06:37) Magnesium (11/29/18 06:37) Chest 1 View Ap/Pa Only (11/29/18 06:37) Ekg Tracing (11/29/18 06:37) Comprehensive Metabolic Panel (11/29/18 06:37) Myoglobin Serum (11/29/18 06:37) Protime With Inr (11/29/18 06:37) Partial Thromboplastin Time (11/29/18 06:37) O2 (11/29/18 06:37) Monitor-Rhythm Ecg Trace Only (11/29/18 06:37) Lipid Panel (11/30/18 06:00) Nitroglycerin 0.4 Mg Btl 25's (Nitrostat (11/29/18 06:45) Ed Iv/Invasive Line Start (11/29/18 06:37) Lipase (11/29/18 06:37) Fibrin Degradation Products (11/29/18 06:37) Troponin I (11/29/18 06:37) Probnp Fs (11/29/18 06:37) Ekg Tracing (11/29/18 06:37) Continuous Ekg Monitoring (11/29/18 06:37) Ondansetron Injection (Zofran Injectio (11/29/18 06:45) Fentanyl Injection (Sublimaze Injection (11/29/18 06:45) Manual Differential (11/29/18 06:37) Ct Angio Chest W (11/29/18 07:19) Albuterol/Ipra Inhalation Soln (Duoneb I (11/29/18 07:30) Svn Small Volume Nebulizer (11/29/18 07:19) Hs C Reactive Protein (11/29/18 07:19) Erythrocyte Sedimentation Rate (11/29/18 07:19) Fentanyl Injection (Sublimaze Injection (11/29/18 07:45) Prochlorperazine Injection (Compazine In (11/29/18 07:45) Diphenhydramine Injection (Benadryl Inje (11/29/18 07:45) Iohexol Injection (Omnipaque 350 Mg/Ml 1 (11/29/18 08:00) Received Contrast (Hold Metformin- Contr (11/29/18 08:00) Sodium Chloride Flush (Catheter Flush Sy (11/29/18 08:00) Ns (Ivpb) (Sodium Chloride 0.9% Ivpb Bag (11/29/18 08:00) Medications Given in ED Current Medications Medications Dose Ordered Sig/Zulema Route Start Time Stop Time Status Last Admin Dose Admin Albuterol/ Ipratropium 3 ml ONCE ONCE INH 11/29/18 07:30 11/29/18 07:31 DC 11/29/18 07:22 3 ML Diphenhydramine HCl 25 mg ONCE ONCE IVP 11/29/18 07:45 11/29/18 07:46 DC 11/29/18 07:48 25 MG Fentanyl Citrate 50 mcg ONCE ONCE IVP 11/29/18 06:45 11/29/18 06:46 DC 11/29/18 06:55 50 MCG Fentanyl Citrate 50 mcg ONCE ONCE IVP 11/29/18 07:45 11/29/18 07:46 DC 11/29/18 07:48 50 MCG Iohexol 125 ml ONCE ONCE IV 11/29/18 08:00 11/29/18 08:01 DC 11/29/18 08:26 125 ML Ondansetron HCl 4 mg ONCE ONCE IVP 11/29/18 06:45 11/29/18 06:46 DC 11/29/18 06:55 4 MG Prochlorperazine Edisylate 10 mg ONCE ONCE IV 11/29/18 07:45 11/29/18 07:46 DC 11/29/18 07:47 10 MG Sodium Chloride 10 ml NEEDED PRN IV 11/29/18 08:00 11/29/18 08:26 10 ML Sodium Chloride 100 ml ONCE ONCE IV 11/29/18 08:00 11/29/18 08:01 DC 11/29/18 08:26 80 ML Vital Signs/I&O 11/29/18 11/29/18 11/29/18 06:29 06:40 06:48 Temp 97.2 Pulse 78 Resp 21 B/P (MAP) 128/51 (76) Pulse Ox 95 O2 Delivery Nasal Cannula Nasal Cannula Nasal Cannula O2 Flow Rate 2.00 2.00 2.0 FiO2 95 Blood Pressure Mean: 76 Progress Progress Note #1: Time: 06:58 Progress Note Initial EKG shows about a block or less of ST elevation in 2 leads laterally just not quite diagnostic. Plan to repeat the EKG. We were going to give her nitroglycerin but her blood pressures been soft in the 1 teens so we'll give her fentanyl and Zofran. We put her on 2 L of oxygen and her oxygen sats are in the upper 90s. 0715: Repeat EKG and no longer demonstrates lateral ST changes and has one lead V2 with a non-convincing ST elevation. Her chest pain significantly improved. She has a headache which is probably from her nitroglycerin. Her d-dimer is elevated so plan to do a CT angiogram. She says a they did an echocardiogram, stress test and told her she did not need a heart catheter. Costochondritis, pericarditis/myocarditis, COPD? Give her a DuoNeb breathing treatment. Even with a normal troponin her heart score is 5 points. She would probably need admitted given that she was just discharged 2 days ago from . She has a notably poor historian and we do not have records. The patient relates that in the past she's been a very hard stick for IVs and when she had IV contrast she has had extravasation due to poor veins. Progress Note #2: Time: 07:56 Progress Note Not sure with the elevated BNP indicates. Could be CHF exacerbation although she does not have a documented echocardiogram or history of CHF. She does not clinically appear to be in full and fluid overload. Could be from pulmonary embolism, pericarditis, myocarditis, other? Initial ECG Impression Date: Nov 29, 2018 Initial ECG Impression Time: 06:31 Initial ECG Rate: 73 Initial ECG Rhythm: Normal Sinus Initial ECG Intervals: Normal Initial ECG Impression: Normal, Nonspecific Changes Initial ECG Comparisson: Changed Comment PVCs seen. In the lateral leads V4 and V5 there are about one half to one block of ST elevation. Mild respiratory/movement artifact. EKG : EKG Time: 07:00 Rate: 79 Rhythm: Normal Sinus Intervals: Normal ECG Comparisson: Changed ECG Impression: Normal Comment Curved ST elevation on lead V2. The ST elevation seen on the lateral leads is not demonstrated on this EKG. PVCs frequently. Sinus rhythm without clinically significant ST elevation or depression. Diagnostic Imaging Diagonstic Imaging: Xray Plain Films/CT/US/NM/MRI: chest (1v) Comments No acute cardiopulmonary processes noted. NAME: CORONA PITTS [employer] REC#: [id number] PT STATUS: REG ER : 1970 PHYSICIAN: CELESTE WHEELER MD ADMIT DATE: 11/29/18/ER FS Draft Date of Exam:11/29/18 CHEST 1 VIEW AP/PA ONLY Indication: Chest pain. Comparison with 11/26/2018. Findings: The lungs are well-aerated. There are no infiltrates. Heart not enlarged. No pulmonary edema. No hilar adenopathy. No pneumothorax or pleural effusion. No bony abnormalities. Impression: Normal portable chest. Dictated on workstation # [id number] Dict: 11/29/18 0740 Trans: 11/29/[address] [facility] [id number] Interpreted by: LATASHA BINGHAM MD Electronically signed by: Reviewed: Reviewed by Ga Diagonstic Imaging: CT (angiogram) Plain Films/CT/US/NM/MRI: chest Comments NAME: CORONA PITTS [employer] REC#: [id number] PT STATUS: REG ER : 1970 PHYSICIAN: CELESTE WHEELER MD ADMIT DATE: 11/29/18/ER FS Draft Date of Exam:11/29/18 CT ANGIO CHEST W PROCEDURE: CT angiography of the chest with contrast. TECHNIQUE: Multiple contiguous axial images were obtained through the chest after uneventful bolus administration of intravenous contrast. 3D reconstructed CTA MIP acquisitions were also performed. Auto Exposure Controls were utilized during the CT exam to meet ALARA standards for radiation dose reduction. INDICATION: Chest pain. Comparison with 05/01/2018. FINDINGS: Good opacification of the aorta and pulmonary arteries following IV contrast injection. There are no filling defects to indicate pulmonary emboli at this time. The lungs are well aerated. No air trapping. No consolidated infiltrates. Mild dependent atelectasis noted. No mediastinal or hilar adenopathy of pathologic size. Aorta is atherosclerotic. The aortic root measures 4.1 cm. No evidence of aortic dissection. Sagittal reconstructed images show good alignment of the thoracic spine without evidence of acute fracture. IMPRESSION: 1. No evidence of pulmonary emboli. 2. Cardiomegaly without evidence of congestive failure. 3. Mild aneurysmal dilatation of the ascending aorta measuring 4.1 cm. Dictated on workstation # [id number] Dict: 11/29/18 0833 Trans: 11/29/18 0837 [id number] Interpreted by: LATASHA BINGHAM MD Electronically signed by: Reviewed: Reviewed by Ga Departure Communication (Admissions) Time/Spoke to Admitting Phy: 08:50 Discussed case lab EKG imaging with Dr. Hook. Time/Spoke to Consulting Phy: 08:40 Discussed the case with Dr. Mejia and he agrees to take the patient on consult. Impression Primary Impression: Chest pain Qualified Codes: R07.9 - Chest pain, unspecified Additional Impression: Elevated brain natriuretic peptide (BNP) level Disposition: ADMITTED INPATIENT Condition: Stable Admissions Decision to Admit Reason: Admit from ER (General) Decision to Admit/Date: Nov 29, 2018 Time/Decision to Admit Time: 08:00 Departure-Patient Inst. Referrals: HUNG VIVEROS MD (PCP/Family) Primary Care Physician CELESTE WHEELER Nov 29, 2018 06:50
[2018-11-29 07:03] LABS: ATYPICAL LYMPHOCYTES 2 %; BAND NEUTROPHILS 1 %; EOSINOPHILS % (MANUAL) 3 %; INR 0.9 (0.8-1.4); LYMPHOCYTES % (MANUAL) 15 %; MONOCYTES % (MANUAL) 5 %; NEUTROPHILS % (MANUAL) 74 %; PROTHROMBIN TIME PATIENT 12.5 SEC (12.2-14.7)
[2018-11-29 07:12] LABS: POTASSIUM 4.5 MMOL/L (3.6-5.0); SODIUM 140 MMOL/L (135-145)
[2018-11-29 07:13] LABS: ALANINE AMINOTRANSFERASE 21 U/L (0-55); ALKALINE PHOSPHATASE 83 U/L (40-136); BUN/CREATININE RATIO 23; CARBON DIOXIDE 22 MMOL/L (21-32); CHLORIDE 105 MMOL/L (98-107); CREATININE SERUM 0.62 MG/DL (0.60-1.30); GFR ESTIMATED > 60; GLUCOSE 264 MG/DL (70-105); MAGNESIUM 1.8 MG/DL (1.6-2.4)
[2018-11-29 07:14] LABS: ALBUMIN 3.7 GM/DL (3.2-4.5); BILIRUBIN,TOTAL < 0.2 MG/DL (0.1-1.0); LIPASE 19 U/L (8-78); TOTAL PROTEIN 6.5 GM/DL (6.4-8.2)
[2018-11-29] MEDS ORDERED: RT-ALBUTEROL/IPRATROPIUM 3 ML (DUONEB) VIAL INH ONE (07:30)
--- NOTE | 2018-11-29 07:43 | Diagnostic Imaging Report ---
Indication: Chest pain. Comparison with 11/26/2018. Findings: The lungs are well-aerated. There are no infiltrates. Heart not enlarged. No pulmonary edema. No hilar adenopathy. No pneumothorax or pleural effusion. No bony abnormalities. Impression: Normal portable chest. Dictated by: Dictated on workstation # [id number]
[2018-11-29] MEDS ORDERED: diphenhydrAMINE 50 MG/ML INJ (BENADRYL) IVP ONE (07:45)
[2018-11-29] MEDS ORDERED: PROCHLORPERAZINE 10 MG/2ML INJ (COMPAZINE) IV ONE (07:45)
[2018-11-29] MEDS ORDERED: CATHETER FLUSH 10 ML SYR IV PRN (08:00)
[2018-11-29] MEDS ORDERED: HOLD METFORMIN - RECEIVED CONTRAST 20 ML VIAL IV SCH (08:00)
[2018-11-29] MEDS ORDERED: NS 100 ML (IVPB) BAG IV ONE (08:00)
[2018-11-29] MEDS ORDERED: IOHEXOL 350 MG/ML 150 ML (OMNIPAQUE 350) VIAL IV ONE (08:00)
--- NOTE | 2018-11-29 08:38 | Diagnostic Imaging Report ---
PROCEDURE: CT angiography of the chest with contrast. TECHNIQUE: Multiple contiguous axial images were obtained through the chest after uneventful bolus administration of intravenous contrast. 3D reconstructed CTA MIP acquisitions were also performed. Auto Exposure Controls were utilized during the CT exam to meet ALARA standards for radiation dose reduction. INDICATION: Chest pain. Comparison with 05/01/2018. FINDINGS: Good opacification of the aorta and pulmonary arteries following IV contrast injection. There are no filling defects to indicate pulmonary emboli at this time. The lungs are well aerated. No air trapping. No consolidated infiltrates. Mild dependent atelectasis noted. No mediastinal or hilar adenopathy of pathologic size. Aorta is atherosclerotic. The aortic root measures 4.1 cm. No evidence of aortic dissection. Sagittal reconstructed images show good alignment of the thoracic spine without evidence of acute fracture. IMPRESSION: 1. No evidence of pulmonary emboli. 2. Cardiomegaly without evidence of congestive failure. 3. Mild aneurysmal dilatation of the ascending aorta measuring 4.1 cm. Dictated by: Dictated on workstation # [id number]
[2018-11-29 09:30] VITALS: BP 143/94
[2018-11-29] MEDS ORDERED: fentaNYL INJECTION 100 MCG/2 ML AMP ONE (09:36)
[2018-11-29] MEDS ORDERED: HEParin (CATH LAB) 2,000 ML IV ONE (09:36)
[2018-11-29] MEDS ORDERED: HEParin 1000 UNIT/ML (10ML VIAL) FOR BOLUS ONE (09:36)
[2018-11-29] MEDS ORDERED: LIDOCAINE 1% INJ 20 ML 20 ML VIAL ONE (09:36)
[2018-11-29] MEDS ORDERED: NS IV 1000 ML 1,000 ML ONE (09:36)
[2018-11-29] MEDS ORDERED: MIDAZOLAM 5 MG/5 ML (VERSED) VIAL ONE (09:36)
--- NOTE | 2018-11-29 10:18 | Cardiology History & Physical ---
HPI-Cardiology Cardiology Consultation Date of Consultation 11/29/18 Date of Admission Time Seen by Provider: 10:14 Indication: chest pain HPI 48 years old lady with history of chest pain, hypertension hyperlipidemia. Started to have chest pain this morning described as dull in nature over her chest radiating to the neck and jaw came into the emergency room, had nondiagnostic EKG changes, was severely hypertensive, given nitroglycerin which helped her blood pressure but continued to have chest pain. No palpitation. No syncope was noted. PMH-Cardiology Seasonal Allergies Seasonal Allergies: No Surgeries Yes (colonoscopy; carpal tunnel) Respiratory Yes Cardiovascular Yes Neurological Yes Headaches /Migraines Reproductive System Hysterectomy, Tubal Ligation Genitourinary No Gastrointestinal No Musculoskeletal No Endocrine Yes Diabetes, Insulin dep HEENT No Cancer No Psychosocial No Integumentary No Blood Transfusions No Adverse Rxn to Transfusion: No Social History Patient Social History Marrital Status: Employed/Student: unemployed Alcohol Use: Denies Use Recreational Drug Use: No Smoking: Current every day smoker Recent Foreign Travel: No Contact w/other who traveled: No Recent Infectious Disease Expo: No Family Hx Other adopted, does not no about her family history ROS-Cardiology Review of Systems General: No Chills, No Night Sweats, No Fatigue; Malaise; No Appetite HEENT: No Head Aches, No Visual Changes, No Eye Pain, No Ear Pain, No Dysphasia, No Sinus Congestion, No Post Nasal Drip, No Sore Throat Pulmonary: Dyspnea; No Cough, No Pleuritic Chest Pain Cardiovascular: Chest Pain; No: Palpitations, Orthopnea, Paroxysmal Noc. Dyspnea, Edema, Lt Headedness Gastrointestinal: No: Nausea, Vomiting, Abdominal Pain, Diarrhea, Constipation, Melena, Hematochezia Genitourinary: No Dysuria, No Frequency, No Incontinence, No Hematuria, No Retention Musculoskeletal: No: neck pain, shoulder pain, arm pain, back pain, hand pain, leg pain, foot pain Neurological: No: Weakness, Numbness, Incoordination, Change in speech, Confusion, Seizures Home Medications & Allergies Allergies: Coded Allergies: morphine (Verified Allergy, Intermediate, Itching, 09/22/18) May take it with Benadryl bupropion (Verified Allergy, Unknown, 09/22/18) Home Medication List Reviewed: Yes Exam-Cardiology Vital Signs Vital Signs Date Time Temp Pulse Resp B/P (MAP) Pulse Ox O2 Delivery O2 Flow Rate FiO2 11/29/18 09:30 98.5 93 20 143/94 (110) 99 Nasal Cannula 2.00 11/29/18 06:29 95 Exam General Appearance: Alert, Oriented X3, Cooperative, No Acute Distress HEENT: Atraumatic, PERRLA Respiratory: Clear to Auscultation, Normal Air Movement Cardiovascular: Regular Rate, Normal S1, Normal S2, No Murmurs Abdominal: Normal Bowel Sounds, Soft, No Tenderness, No Hepatosplenomegaly, No Masses Extremities: No Clubbing, No Cyanosis, No Edema, Normal Pulses, No Tenderness/Swelling Skin: No Rashes, No Breakdown, No Significant Lesion Neuro: Normal Gait, Normal Speech, Strength at 5/5 X4 Ext, Normal Tone, Sensation Intact Psych/Mental Status: Mental Status NL, Mood NL Results Labs Labs Laboratory Tests 11/29/18 06:37: White Blood Count 16.6H, Red Blood Count 4.29L, Hemoglobin 13.8, Hematocrit 41, Mean Corpuscular Volume 96, Mean Corpuscular Hemoglobin 32, Mean Corpuscular Hemoglobin Concent 34, Red Cell Distribution Width 12.5, Platelet Count 203, Mean Platelet Volume 11.3H, Neutrophils (%) (Auto) 67, Lymphocytes (%) (Auto) 26, Monocytes (%) (Auto) 5, Eosinophils (%) (Auto) 2, Basophils (%) (Auto) 1, Neutrophils # (Auto) 11.0H, Lymphocytes # (Auto) 4.3H, Monocytes # (Auto) 0.9, Eosinophils # (Auto) 0.2, Basophils # (Auto) 0.1, Neutrophils % (Manual) 74, Lymphocytes % (Manual) 15, Monocytes % (Manual) 5, Eosinophils % (Manual) 3, Band Neutrophils 1, Atypical Lymphocytes 2, Erythrocyte Sedimentation Rate 18, Prothrombin Time 12.5, INR Comment 0.9, Activated Partial Thromboplast Time 22L, D-Dimer 0.71H, Sodium Level 140, Potassium Level 4.5, Chloride Level 105, Carbon Dioxide Level 22, Anion Gap 13, Blood Urea Nitrogen 14, Creatinine 0.62, Estimat Glomerular Filtration Rate > 60, BUN/Creatinine Ratio 23, Glucose Level 264H, Calcium Level 9.0, Corrected Calcium 9.2, Magnesium Level 1.8, Total Bilirubin < 0.2, Aspartate Amino Transf (AST/SGOT) 19, Alanine Aminotransferase (ALT/SGPT) 21, Alkaline Phosphatase 83, Myoglobin < 21.0, Troponin I 0.30, Pro-B-Type Natriuretic Peptide 1398.0H, Total Protein 6.5, Albumin 3.7, Lipase 19 11/29/18 06:40: Glucometer 253H A/P-Cardiology Admission Diagnosis Unstable angina Coronary artery disease Frequent PVCs Hypertension Hyperlipidemia Admission Status: Observation Assessment/Plan Chest pain, unstable angina, nondiagnostic EKG changes, planning to proceed with emergency cardiac catheterization Frequent PVCs. Start beta blockers and monitor Hypertension, restart home medication monitor Hyperlipidemia, monitor lipids Diabetes mellitus, monitor, managed by primary care physician Morbid obesity, BMI 39 Tobaccoism, educated on smoking cessation History of hepatitis C Addendum: Hospital course: Patient was admitted for emergency cardiac catheterization which showed multivessel coronary artery disease, severe cardiomyopathy, ejection fraction 30 percent, ischemic in nature, elevated left ventricular end- diastolic pressure, she will need evaluation for urgent bypass surgery. I contacted Dr. Teofilo Hernández at [facility] who graciously accepted the patient and he will manage her accordingly. Final diagnoses Chest pain, unstable angina Coronary artery disease Congestive heart failure, acute left ventricular systolic dysfunction, ischemic cardiomyopathy Hypertension Hyperlipidemia DEBRA HINOJOSA MD Nov 29, 2018 10:18
--- NOTE | 2018-11-29 10:19 | Cardiac Procedure Note-CS/ASA ---
Pre-Procedure Note Pre-Op Procedure Note H&P Reviewed The H&P was reviewed, patient examined and no changes noted. Date H&P Reviewed: Nov 29, 2018 Time H&P Reviewed: 10:18 Conscious Sedation Pre-Proced Time 10:18 ASA Score 3 For ASA 3 and 4: Consider anesthesia and medical clearance. Also, for patients with a history of failed moderate sedation consider anesthesia. Airway Lungs Heart ASA score ASA 1: a normal healthy patient ASA 2: a patient with a mild systemic disease (mid diabetes, controlled hypertension, obesity x ASA 3: a patient with a severe systemic disease that limits activity (angina, COPD, prior Myocardial infarction) ASA 4: a patient with an incapacitating disease that is a constant threat to life (CHF, renal failure) ASA 5: a moribund patient not expected to survive 24 hrs. (ruptured aneurysm) ASA 6: a declared brain- patient whose organs are being harvested. For emergent operations, add the letter E after the classification Mallampati Classification Grade 3 Sedation Plan Analgesia, Amnesia, Plan communicated to team members, Discussed options with patient/fam, Discussed risks with patient/fam The patient is an appropriate candidate to undergo the planned procedure, sedation, and anesthesia. The patient immediately re-assessed prior to indication. DEBRA HINOJOSA MD Nov 29, 2018 10:19
[2018-11-29] MEDS ORDERED: NS IV 1000 ML 1,000 ML IV SCH (10:52)
--- NOTE | 2018-11-29 10:56 | Discharge Inst-Post CATH ---
Discharge Inst-CATH/EP Problems Reviewed?: Yes Post Cardiac Cath/EP D/C Inst Follow Up/Plan Appointment with Dr. Mejia's office in 2-4 weeks <b>CARDIAC CATH/EP PROCEDURE DISCHARGE INSTRUCTIONS</b> ACTIVITY * Go Home directly and rest. * Limit activity of the leg (or wrist if it was used) for 7 days including aerobics, swimming, jogging, bicycling, etc. * Restrict stair-climbing for 7 days if possible, if not, climb up with your non-cath leg, then bring together on the same step. * Avoid lifting, pushing, pulling or excessive movement of the affected extremity for 7 days. * Customary sexual activity may be resumed after 2 days-use caution not to use a position that strains or causes pain to the affected extremity. * No driving for 24 hours. * NO SMOKING. * Avoid straining for bowel movements for 7 days. * Gentle walking on level ground is allowed. * Returning to work will depend on the type of procedure and the results. Your doctor will discuss this with you. CALL YOUR DOCTOR FOR ANY OF THE FOLLOWING: *If bleeding from the puncture site occurs- Apply gentle pressure to site with clean cloth and call your doctor or EMS. * If a knot or lump forms under the skin, increases in size, or causes pain. * If bruising appears to be worsening or moving further down your leg instead of disappearing. * Temperature above 101 F. CARE OF YOUR GROIN INCISION; * Bruising or purple discoloration of the skin near the puncture site is common. * You may shower only, no bathtub bathing for 5 days. Be careful to avoid slipping as your leg may feel stiff. * If a closure device was used on your femoral artery, please see the attached guide regarding care of the device and your leg. * Leave dressing on FOR 24 hours. CARE OF YOUR WRIST INCISION; * Bruising or purple discoloration of the skin near the puncture site is common. * You may shower. * DO NOT submerge wrist. * Leave dressing on FOR 24 hours. DEBRA MEJIA MD Nov 29, 2018 10:56
[2018-11-29] MEDS ORDERED: PATIENT MAY USE OWN MEDS, ALL PO SCH (11:00)
--- NOTE | 2018-11-29 11:03 | Cardiac Cath Report ---
Cardiac Cath Report Physician (s)/Hospital Pharmacy Technician (s) Physician DEBRA HINOJOSA MD Pre-Procedure Diagnosis Pre-Procedure Diagnosis: chest pain Post-Procedure Note Procedure Start Date: Nov 29, 2018 Name of Procedure: Left heart catheterization Left ventriculogram Findings/Procedure Note PROCEDURE NOTE: 48 years old lady with history of recurrent chest pain, admitted from [facility] emergency room with acute chest pain and shortness of breath and hypertension, given nitroglycerin with some improvement in her chest pain. Brought for emergency cardiac catheterization possible PTCA. After explaining the procedure to the patient, all pros and cons were explained, all questions were answered. The patient signed the consent and then she was placed on the cardiac catheterization laboratory. Groin was prepped SL fashion local anesthesia was used. Sheath placed in the right femoral artery. Kenneth right and left catheter were used to access the coronary system. Pigtail was used to access the left ventricular cavity. Left ventriculogram was done At the end of the procedure the sheath was removed. Closure device was used FINDINGS: Hemodynamics LV 108/29, end-diastolic pressure 29 Aorta 111/56 mean of 76 ANATOMY: Left Main is free of obstructive disease Left Anterior Descending has 95 percent stenosis at the midportion, 80 percent stenosis distally. Diagonal branch has severe stenosis Left Circumflex has severe stenosis at the midportion Right Coronory Artery has severe stenosis at the proximal and moderate disease at the midportion LV Gram was done showing dilated left ventricle with hypokinesia involving the whole anterior wall, elevated left ventricular end-diastolic pressure estimated ejection fraction 30 percent CONCLUSION: 1. Severe multilevel vessel coronary artery disease with 95 percent stenosis at the mid LAD critical stenosis. 2. Dilated left ventricle with anterior wall hypokinesia, patient has Q wave in the anterior leads, diffuse hypokinesia with ejection fraction 30 percent 3. Known to have prominent aorta from the CT angiogram of the chest with a measurement of 4.1 cm Hospital course: patient has multiple risk factors she is diabetic, hypertensive, hyperlipidemic, with multivessel coronary artery disease she will require urgent evaluation for bypass surgery. I contacted Dr. Teofilo Hernández at [facility] who accepted the patient. We'll arrange for emergency transfer Anesthesia Type: Conscious Sedation Estimated blood loss (mL): 15 ml Contrast Amount: 40 ml Total Radiation Dose: 533 mGy Post-Procedure Diagnosis Post-operative diagnosis: Unstable angina Coronary artery disease Congestive heart failure, acute left ventricular systolic dysfunction, ischemic cardiomyopathy with ejection fraction 30 percent Hypertension Hyperlipidemia ASHISH,BASHAR J MD Nov 29, 2018 11:02
--- NOTE | 2018-11-29 11:11 | NUR ---
Pt arrived at this time to ICU room CU9 and placed on monitors at this time. Brief bedside report given to this RN by laboratory mechanical technician. Dolly in route to transfer pt to [facility] in [place] for CABG. Pt arrived alert et oriented. 2L NC on arrival VSS. Right groin site mynx dressing c/d/i. No bleeding or hematoma to note. Will continue to monitor.
--- NOTE | 2018-11-29 11:20 | NUR ---
Report called to Francia MCKEON who will assume pt care on arrival to unit for CABG. Dolly at bedside at this time for transportation. Attempts made to contact pt's at this time. Messages left per LINDA Nieves. VS continue to remain stable at this time. Transportation forms filed also during this time.
--- NOTE | 2018-11-29 11:33 | NUR ---
Pt taken by [facility] at this time for flight transport to [facility]. Report given to [facility] staff by this RN. Nothing further to note at this time.
[2018-11-29] MEDS ORDERED: meTOprolol 5 MG/5 ML (LOPRESSOR) VIAL IV SCH (12:00)
[2018-11-29] MEDS ORDERED: ATORVASTATIN 40 MG (LIPITOR) TABLET PO SCH (21:00)
[2018-11-30] MEDS ORDERED: ASPIRIN E.C. 81 MG (ECOTRIN) TAB PO SCH (09:00)
--- NOTE | 2018-12-02 13:44 | Physician Query Clarification ---
PQ-Uncertain Diagnosis Admission/Discharge Admission Date: Nov 29, 2018 at 09:01 Discharge Date: Nov 29, 2018 at 11:33 The medical record reflects the following clinical scenario: History/Risk Factors: CAD w/unstable angina, acute systolic CHF, pt states had STEMI 3 days prior to admission Clinical Findings: Chest pain radiating to neck/jaw, Troponin 0.30 Treatment: heart cath Question: Is STEMI 3 days prior to admission a clinically valid diagnosis? STEMI 3 days prior to admission was documented in the ER with no further documentation in the medical record. Please document a response in Progress Note or Discharge Summary. 1. Yes, clinically valid, condition resolved. 2. No, condition ruled out. 3. Other, with explanation of clinical findings. 4. Undetermined, no explanation for clinical findings. PHYSICIAN RESPONSE Diagnosis clinically valid: Other, explanation/clinical finding Explanation of clincal finding Patient had unstable angina, no documented STEMI Please remember a lack of response to the above will prompt a phone page by CDI/Coding staff. In responding to this query, please exercise your independent professional judgment. The purpose of this communication is to more accurately reflect the complexity of your patients condition. The fact that a question is asked does not imply that any particular answer is desired or expected. Thank you for your timely response to this clarification. Requestors name: Cristy THIS PHYSICIAN QUERY FORM IS A PERMANENT PART OF THE MEDICAL RECORD CRISTY ARCEO Dec 02, 2018 13:44 DEBRA HINOJOSA MD Dec 08, 2018 11:38
== END 2018-11-29 11:33 | disposition short-term general hospital (02) ==
LOC: ER FS 06:29 → CATH 09:01 → ICU 09:01 → UNDOADMIN 09:01 → ICU 09:01 → UNDODISIN 11:33 → CATH 11:33
PROVIDERS: ATTEND Internal Medicine
DX: I25.110 Atherosclerotic heart disease of native coronary artery with unstable angina pectoris (principal); I50.21 Acute systolic (congestive) heart failure; I49.3 Ventricular premature depolarization; E11.9 Type 2 diabetes mellitus without complications; I25.5 Ischemic cardiomyopathy; I11.0 Hypertensive heart disease with heart failure; F17.210 Nicotine dependence, cigarettes, uncomplicated; J44.9 Chronic obstructive pulmonary disease, unspecified; E78.5 Hyperlipidemia, unspecified; E66.01 Morbid (severe) obesity due to excess calories; Z79.4 Long term (current) use of insulin; Z68.39 Body mass index [BMI] 39.0-39.9, adult; Z86.73 Personal history of transient ischemic attack (TIA), and cerebral infarction without residual deficits; Z90.710 Acquired absence of both cervix and uterus
CPT/HCPCS: 36415; 71045; 71275; 80053; 82962; 83690; 83735; 83874; 83880; 84484; 85007; 85027; 85379; 85610; 85652; 85730; 86141; 93005; 93041; 93458; 96374; 96375; 96376

== ENCOUNTER → 2018-12-16 | Outpatient (CLI) | payer MEDICAID | LOC: LAB 09:55 | PROVIDERS: ATTEND Family Medicine | DX: J44.9 Chronic obstructive pulmonary disease, unspecified (principal) ==

== ENCOUNTER → 2019-01-08 | Outpatient (CLI) | payer MEDICAID ==
[2019-01-08 17:47] LABS: ALLENS TEST OK; INSPIRED O2 ROOM AIR; PATIENT TEMP 36.6 C; VENTILATOR NO
[2019-01-08 17:51] LABS: ABG BASE EXCESS 3.3 MMOL/L (-2.5-2.5); ABG OXYGEN SATURATION 97 % (94-100); ABG PCO2 41 MMHG (35-45); ABG PH 7.44 (7.37-7.43); ABG PO2 83 MMHG (79-93); ABG TCO2 29.1 MMOL/L (21.0-31.0)
== END ==
LOC: LAB 17:27
PROVIDERS: ATTEND Family Medicine
DX: J44.9 Chronic obstructive pulmonary disease, unspecified (principal)
CPT/HCPCS: 82805

== ENCOUNTER 2019-03-25 10:48 | Outpatient (RCR) | payer MEDICAID ==
[~2019-03-25 10:48] MED LIST changes: -TRAM50TA2; +TRM50T
== END 2019-04-03 | disposition home or self-care (01) ==
LOC: CR 10:48
PROVIDERS: ATTEND Internal Medicine Cardiovascular Disease
DX: Z48.812 Encounter for surgical aftercare following surgery on the circulatory system (principal); Z95.5 Presence of coronary angioplasty implant and graft
CPT/HCPCS: 82962; 93798

== ENCOUNTER 2019-04-09 20:40 | Emergency (ER) | payer MEDICAID ==
[~2019-04-09] VITALS: Ht 165.1 cm; Wt 112.8 kg
[~2019-04-09 20:40] MED LIST changes: -GLIM1TAB; +GLIM1TAB2
[2019-04-09] MEDS ORDERED: KETOROLAC 60 MG/2 ML VIAL IM STA (21:03)
[2019-04-09] MEDS ORDERED: diphenhydrAMINE 50 MG/ML INJ (BENADRYL) IM STA (21:03)
[2019-04-09] MEDS ORDERED: PROMETHAZINE INJ 25 MG/ML (PHENERGAN) AMP IM STA (21:03)
--- NOTE | 2019-04-09 21:03 | ED Headache ---
General Chief Complaint: Chest Pain Stated Complaint: MIGRAINE Source: patient History of Present Illness Date Seen by Provider: Apr 09, 2019 Time Seen by Provider: 20:48 Initial Comments 49-year-old female presenting with complaints of right-sided migraine headache. She states that this feels like her typical migraine. She tried taking Imitrex around 7 PM but it was not enough to control her headache. She states that it feels like a knife stabbing her on the right side of her head. This again feels like her typical migraine for her. She has no numbness or tingling in her legs or arms. She does have light sensitivity. She denies any fever or chills. She has cough and is getting over a respiratory illness that she's finishing an anti biotic and a steroid for that. Allergies and Home Medications Allergies Coded Allergies: morphine (Verified Allergy, Intermediate, Itching, 09/22/18) May take it with Benadryl bupropion (Verified Allergy, Unknown, 09/22/18) Patient Home Medication List Home Medication List Reviewed: Yes Review of Systems Review of Systems Constitutional: No chills, No fever Eyes: Photophobia Ears, Nose, Mouth, Throat: no symptoms reported Respiratory: cough Cardiovascular: no symptoms reported Gastrointestinal: nausea; No vomiting Genitourinary: no symptoms reported Musculoskeletal: no symptoms reported Skin: no symptoms reported Psychiatric/Neurological: Headache; Denies Numbness, Denies Paresthesia Past Uoigckq-Nhuvxt-Raeesm Hx Past Med/Social Hx: Reviewed Nursing Past Med/Soc Hx Patient Social History Alcohol Use: Denies Use Recreational Drug Use: No Type Used: Cigarettes 2nd Hand Smoke Exposure: Yes Recent Foreign Travel: No Contact w/Someone Who Travel: No Recent Hopitalizations: No Physical Abuse: No Sexual Abuse: No Mistreated: No Fear: No Seasonal Allergies Seasonal Allergies: No Past Medical History Surgeries: Yes (colonoscopy; carpal tunnel) Section, Gallbladder, Hysterectomy, Orthopedic, Tonsillectomy, Tubal Ligation Respiratory: Yes COPD Cardiac: Yes High Cholesterol, Hypertension Neurological: Yes Headaches /Migraines 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 0oz. 108.954782gv; BMI Method:Stated General Appearance: WD/WN, obese HEENT: PERRL/EOMI, pharynx normal Neck: non-tender, full range of motion, supple, normal inspection Cardiovascular: normal peripheral pulses, regular rate, rhythm Respiratory: normal breath sounds, no respiratory distress, no accessory muscle use, rhonchi Psychiatric: alert, oriented x 3 Crainal Nerves: normal hearing, normal speech, PERRL Coordination/Gait: normal gait Motor/Sensory: no motor deficit, no sensory deficit Skin: normal color, warm/dry Progress/Results/Core Measures Results/Orders My Orders Orders - MYKEL POLANCO MD Ketorolac Injection (Toradol Injection) (04/09/19 21:03) Promethazine Injection (Phenergan Injec (04/09/19 21:03) Diphenhydramine Injection (Benadryl Inje (04/09/19 21:03) Vital Signs/I&O 04/09/19 04/09/19 20:57 21:19 Temp 35.8 35.8 Pulse 86 86 Resp 18 18 B/P (MAP) 146/84 (104) 146/84 (104) Pulse Ox 96 96 O2 Delivery Room Air Progress Progress Note : Progress Note Since this feels like her typical migraine headache she usually response to IM injections of Toradol, Benadryl, Phenergan. We will give these medications and allow her To go home and rest. Counseled on follow up and return precautions Departure Impression Primary Impression: Migraine headache Qualified Codes: G43.009 - Migraine without aura, not intractable, without status migrainosus Disposition: HOME, SELF-CARE Condition: Stable Departure-Patient Inst. Decision time for Depature: 21:06 Referrals: HUNG VIVEROS MD (PCP/Family) Primary Care Physician Patient Instructions: Migraine Headache (DC) Add. Discharge Instructions: Stay well hydrated and rest in a cool dark room. Follow up with clinic for continued concerns All discharge instructions reviewed with patient and/or family. Voiced understanding. MYKEL POLANCO MD Apr 09, 2019 21:03
[2019-04-09 21:19] VITALS: BP 146/84
== END 2019-04-09 21:19 | disposition home or self-care (01) ==
LOC: EDUNIT# 20:40 → ER FS 20:41
DX: G43.909 Migraine, unspecified, not intractable, without status migrainosus (principal); J44.9 Chronic obstructive pulmonary disease, unspecified; I10 Essential (primary) hypertension; E11.9 Type 2 diabetes mellitus without complications; E78.00 Pure hypercholesterolemia, unspecified; Z88.5 Allergy status to narcotic agent; Z88.8 Allergy status to other drugs, medicaments and biological substances; Z77.22 Contact with and (suspected) exposure to environmental tobacco smoke (acute) (chronic); Z90.710 Acquired absence of both cervix and uterus; Z98.51 Tubal ligation status
CPT/HCPCS: 99284

== ENCOUNTER 2019-05-06 11:32 | Outpatient (RCR) | payer MEDICAID ==
[~2019-05-06 11:32] MED LIST changes: -BUPR150T20; +BUPR150T28; -GLIM1TAB2; +GLIM1TAB4
== END 2019-07-28 | disposition home or self-care (01) ==
LOC: CR 11:32
PROVIDERS: ATTEND Internal Medicine Cardiovascular Disease
DX: Z48.812 Encounter for surgical aftercare following surgery on the circulatory system (principal); Z95.5 Presence of coronary angioplasty implant and graft
CPT/HCPCS: 93798

== ENCOUNTER → 2019-05-09 | Outpatient (CLI) | payer MEDICAID ==
[~2019-05-09] VITALS: Ht 165 cm; Wt 110.0 kg
[~2019-05-09] MED LIST changes: +BUPR150T20; -BUPR150T28; +CATHETER FLUSH 10 ML SYR IV PRN; +GLIM1TAB2; -GLIM1TAB4; +REGADENOSON 0.4 MG/5 ML SYR (LEXISCAN) IV ONE
--- NOTE | 2019-05-10 08:29 | STRESS TEST ---
DATE OF SERVICE: 05/09/2019 LEXISCAN MYOVIEW STRESS TEST REPORT REFERRING PHYSICIAN: Dr. Farris. Baseline heart rate is 67. Baseline blood pressure 105/70. Baseline EKG is sinus rhythm with no ischemic changes. In summary, the patient was injected with 10.35 mCi of technetium-99 Myoview and the resting images were obtained. Then, the patient received 0.4 mg of Lexiscan followed by 30.6 mCi of technetium-99 Myoview. Throughout the test, there were no EKG changes. The resting and stress images were reviewed and compared in the short axis, horizontal long axis, and vertical long axis views. Review of the images showed breast attenuation with reversible ischemia involving the whole anterior wall, anteroapical segment. SSS 11, SDS 6, TID value 1.11. On the gated images, the left ventricle is normal in size, hypokinesia involving the whole anterior wall and true apex. Calculated ejection fraction 38%. CONCLUSION: 1. The patient tolerated Lexiscan well. 2. Reversible ischemia involving the whole anterior wall and true apex. 3. Normal left ventricular size with hypokinesia at the anterior wall and true apex, dyskinesia of the apex. Calculated ejection fraction 38%. 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
== END ==
LOC: CARD 07:49
PROVIDERS: ATTEND Physician Assistant
DX: I11.9 Hypertensive heart disease without heart failure (principal); I25.10 Atherosclerotic heart disease of native coronary artery without angina pectoris; E78.2 Mixed hyperlipidemia; I49.1 Atrial premature depolarization; I25.89 Other forms of chronic ischemic heart disease
CPT/HCPCS: 78452; 93017; 93306

== ENCOUNTER 2019-08-21 21:02 | Emergency (ER) | payer MEDICAID ==
[~2019-08-21] VITALS: Ht 165 cm; Wt 106.0 kg
[~2019-08-21 21:02] MED LIST changes: -BUPR150T20; +BUPR150T28; -CATHETER FLUSH 10 ML SYR IV PRN; -GLIM1TAB2; +GLIM1TAB4; -REGADENOSON 0.4 MG/5 ML SYR (LEXISCAN) IV ONE
--- OUTSIDE RECORDS SUMMARY | 2019-08-21 21:12 | XMS REPORT | Continuity of Care Document ---
Author Organization Unknown Address Unknown Phone Unavailable Allergies Active Description Code Type Severity Reaction Onset Reported/Identified Relationship to Patient Clinical Status Yes bupropion [id number] Drug Allergy Unknown N/A 09/22/2018 Yes morphine [id number] Drug Allergy Moderate Itching 09/22/2018 Medications There is no data. Problems Date Dx Coded Attending Type Code Diagnosis Diagnosed By 09/07/2018 MYKEL POLANCO MD, Ot E11.9 TYPE 2 DIABETES MELLITUS WITHOUT COMPLIC 09/07/2018 MYKEL POLANCO MD, Ot E78.0 0 PURE HYPERCHOLESTEROLEMIA, UNSPECIFIED 09/07/2018 MYKEL POLANCO MD, Ot F17.2 10 NICOTINE DEPENDENCE, CIGARETTES, UNCOMPL 09/07/2018 MYKEL POLANCO MD, Ot G43.9 09 MIGRAINE, UNSP, NOT INTRACTABLE, WITHOUT 09/07/2018 MYKEL POLANCO MD Ot I10 ESSENTIAL (PRIMARY) HYPERTENSION 09/07/2018 MYKEL POLANCO MD, Ot R51 HEADACHE 09/07/2018 MYKEL POLANCO MD, Ot Z88.5 ALLERGY STATUS TO NARCOTIC AGENT STATUS 09/07/2018 MYKEL POLANCO MD, Ot Z88.6 ALLERGY STATUS TO ANALGESIC AGENT STATUS 09/07/2018 MYKEL POLANCO MD, Ot Z90.7 10 ACQUIRED ABSENCE OF BOTH CERVIX AND UTER 09/07/2018 MYKEL POLANCO MD, Ot Z90.8 9 ACQUIRED ABSENCE OF OTHER ORGANS 09/07/2018 MYKEL POLANCO MD, Ot Z98.5 1 TUBAL LIGATION STATUS 09/07/2018 MYKEL POLANCO MD, Ot Z98.8 90 OTHER SPECIFIED POSTPROCEDURAL STATES 09/10/2018 MYKEL POLANCO MD, Ot E11.9 TYPE 2 DIABETES MELLITUS WITHOUT COMPLIC 09/10/2018 MYKEL POLANCO MD, Ot E78.0 0 PURE HYPERCHOLESTEROLEMIA, UNSPECIFIED 09/10/2018 MYKEL POLANCO MD, Ot F17.2 10 NICOTINE DEPENDENCE, CIGARETTES, UNCOMPL 09/10/2018 MYKEL POLANCO MD Ot G43.9 09 MIGRAINE, UNSP, NOT INTRACTABLE, WITHOUT 09/10/2018 MYKEL POLANCO MD Ot I10 ESSENTIAL (PRIMARY) HYPERTENSION 09/10/2018 MYKEL POLANCO MD Ot R51 HEADACHE 09/10/2018 MYKEL POLANCO MD Ot Z88.5 ALLERGY STATUS TO NARCOTIC AGENT STATUS 09/10/2018 MYKEL POLANCO MD Ot Z88.6 ALLERGY STATUS TO ANALGESIC AGENT STATUS 09/10/2018 MYKEL POLANCO MD Ot Z90.7 10 ACQUIRED ABSENCE OF BOTH CERVIX AND UTER 09/10/2018 MYKEL POLANCO MD Ot Z90.8 9 ACQUIRED ABSENCE OF OTHER ORGANS 09/10/2018 MYKEL POLANCO MD Ot Z98.5 1 TUBAL LIGATION STATUS 09/10/2018 MYKEL POLANCO MD Ot Z98.8 90 OTHER SPECIFIED POSTPROCEDURAL STATES 09/13/2018 MYKEL POLANCO MD Ot E11.9 TYPE 2 DIABETES MELLITUS WITHOUT COMPLIC 09/13/2018 MYKEL POLANCO MD Ot E78.0 0 PURE HYPERCHOLESTEROLEMIA, UNSPECIFIED 09/13/2018 MYKEL POLANCO MD Ot F17.2 10 NICOTINE DEPENDENCE, CIGARETTES, UNCOMPL 09/13/2018 MYKEL POLANCO MD Ot G43.9 09 MIGRAINE, UNSP, NOT INTRACTABLE, WITHOUT 09/13/2018 MYKEL POLANCO MD Ot I10 ESSENTIAL (PRIMARY) HYPERTENSION 09/13/2018 MYKEL POLANCO MD Ot R51 HEADACHE 09/13/2018 MYKEL POLANCO MD Ot Z88.5 ALLERGY STATUS TO NARCOTIC AGENT STATUS 09/13/2018 MYKEL POLANCO MD Ot Z88.6 ALLERGY STATUS TO ANALGESIC AGENT STATUS 09/13/2018 MYKEL POLANCO MD Ot Z90.7 10 ACQUIRED ABSENCE OF BOTH CERVIX AND UTER 09/13/2018 MYKEL POLANCO MD Ot Z90.8 9 ACQUIRED ABSENCE OF OTHER ORGANS 09/13/2018 MYKEL POLANCO MD Ot Z98.5 1 TUBAL LIGATION STATUS 09/13/2018 MYKEL POLANCO MD Ot Z98.8 90 OTHER SPECIFIED POSTPROCEDURAL STATES 09/22/2018 ENRIQUETA GREER DO Ot E11.9 TYPE 2 DIABETES MELLITUS WITHOUT COMPLIC 09/22/2018 ENRIQUETA GREER DO Ot E78.00 PURE HYPERCHOLESTEROLEMIA, UNSPECIFIED 09/22/2018 ENRIQUETA GREER DO Ot G43.909 MIGRAINE, UNSP, NOT INTRACTABLE, WITHOUT 09/22/2018 ENRIQUETA GREER DO Ot I1 0 ESSENTIAL (PRIMARY) HYPERTENSION 09/22/2018 ENRIQUETA GREER DO Ot I49.3 VENTRICULAR PREMATURE DEPOLARIZATION 09/22/2018 ENRIQUETA GREER DO Ot R07.89 OTHER CHEST PAIN 09/22/2018 ENRIQUETA GREER DO Ot R74.8 ABNORMAL LEVELS OF OTHER SERUM ENZYMES 09/22/2018 ENRIQUETA GREER DO Ot Z77.22 CNTCT W AND EXPSR TO ENVIRON TOBACCO SMO 09/22/2018 ENRIQUETA GREER DO Ot Z90.710 ACQUIRED ABSENCE OF BOTH CERVIX AND UTER 09/22/2018 ENRIQUETA GREER DO Ot Z90.89 ACQUIRED ABSENCE OF OTHER ORGANS 09/22/2018 ENRIQUETA GREER DO Ot Z98.51 TUBAL LIGATION STATUS 09/24/2018 ENRIQUETA GREER DO Ot E11.9 TYPE 2 DIABETES MELLITUS WITHOUT COMPLIC 09/24/2018 ENRIQUETA GREER DO Ot E78.00 PURE HYPERCHOLESTEROLEMIA, UNSPECIFIED 09/24/2018 ENRIQUETA GREER DO Ot G43.909 MIGRAINE, UNSP, NOT INTRACTABLE, WITHOUT 09/24/2018 ENRIQUETA GREER DO Ot I1 0 ESSENTIAL (PRIMARY) HYPERTENSION 09/24/2018 ENRIQUETA GREER DO Ot I49.3 VENTRICULAR PREMATURE DEPOLARIZATION 09/24/2018 ENRIQUETA GREER DO Ot R07.89 OTHER CHEST PAIN 09/24/2018 ENRIQUETA GREER DO Ot R74.8 ABNORMAL LEVELS OF OTHER SERUM ENZYMES 09/24/2018 ENRIQUETA GREER DO Ot Z77.22 CNTCT W AND EXPSR TO ENVIRON TOBACCO SMO 09/24/2018 ENRIQUETA GREER DO Ot Z90.710 ACQUIRED ABSENCE OF BOTH CERVIX AND UTER 09/24/2018 ENRIQUETA GREER DO Ot Z90.89 ACQUIRED ABSENCE OF OTHER ORGANS 09/24/2018 ENRIQUETA GREER DO Ot Z98.51 TUBAL LIGATION STATUS 11/24/2018 MAXIMO RUBIO Ot I49.9 CARDIAC ARRHYTHMIA, UNSPECIFIED 11/27/2018 RUDDY MORRIS DO Ot E11.9 TYPE 2 DIABETES MELLITUS WITHOUT COMPLIC 11/27/2018 MORRIS DO, RUDDY Ot E78.00 PURE HYPERCHOLESTEROLEMIA, UNSPECIFIED 11/27/2018 MORRIS DO, RUDDY Ot G43.909 MIGRAINE, UNSP, NOT INTRACTABLE, WITHOUT 11/27/2018 MORRIS DO, RUDDY Ot I10 ESSENTIAL (PRIMARY) HYPERTENSION 11/27/2018 SHERWOOD DO, RUDDY Ot I25.10 ATHSCL HEART DISEASE OF [place] CORONARY 11/27/2018 MORRIS DO, RUDDY Ot I25.2 OLD MYOCARDIAL INFARCTION 11/27/2018 SHERWOOD DO, RUDDY Ot J44.9 CHRONIC OBSTRUCTIVE PULMONARY DISEASE, U 11/27/2018 SHERWOOD DO, RUDDY Ot R07.2 PRECORDIAL PAIN 11/27/2018 SHERWOOD DO, RUDDY Ot R07.9 CHEST PAIN, UNSPECIFIED 11/27/2018 SHERWOOD DO, RUDDY Ot Z77.22 CNTCT W AND EXPSR TO ENVIRON TOBACCO SMO 11/27/2018 SHERWOOD DO, RUDDY Ot Z88.5 ALLERGY STATUS TO NARCOTIC AGENT STATUS 11/27/2018 SHERWOOD DO, RUDDY Ot Z88.8 ALLERGY STATUS TO OTH DRUG/MEDS/BIOL SUB 11/27/2018 SHERWOOD DO, RUDDY Ot Z90.710 ACQUIRED ABSENCE OF BOTH CERVIX AND UTER 11/27/2018 SHERWOOD DO, RUDDY Ot Z90.89 ACQUIRED ABSENCE OF OTHER ORGANS 11/27/2018 SHERWOOD DO, RUDDY Ot Z98.51 TUBAL LIGATION STATUS 11/29/2018 SUMI REESE DO Ot E11.9 TYPE 2 DIABETES MELLITUS WITHOUT COMPLIC 11/29/2018 SUMI REESE DO Ot E66.01 MORBID (SEVERE) OBESITY DUE TO EXCESS CA 11/29/2018 SUMI REESE DO Ot E78.5 HYPERLIPIDEMIA, UNSPECIFIED 11/29/2018 SUMI REESE DO Ot F17.21 0 NICOTINE DEPENDENCE, CIGARETTES, UNCOMPL 11/29/2018 SUMI REESE DO Ot I11.0 HYPERTENSIVE HEART DISEASE WITH HEART FA 11/29/2018 SUMI REESE DO Ot 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 11/29/2018 SUMI REESE DO Ot I25.5 ISCHEMIC CARDIOMYOPATHY 11/29/2018 SUMI REESE DO Ot I49.3 VENTRICULAR PREMATURE DEPOLARIZATION 11/29/2018 SUMI REESE DO Ot I50.21 ACUTE SYSTOLIC (CONGESTIVE) HEART FAILUR 11/29/2018 SUMI REESE DO Ot J44.9 CHRONIC OBSTRUCTIVE PULMONARY DISEASE, U 11/29/2018 SUMI REESE DO, Ot Z68.39 BODY MASS INDEX (BMI) 39.0-39.9, ADULT 11/29/2018 SUMI REESE DO, Ot Z79.4 MCFP (CURRENT) USE OF INSULIN 11/29/2018 SUMI REESE DO, Ot Z86.73 PRSNL HX OF TIA (TIA), AND CEREB INFRC W 11/29/2018 SUMI REESE DO, Ot Z90.71 0 ACQUIRED ABSENCE OF BOTH CERVIX AND UTER 11/30/2018 RUDDY MORRIS DO Ot E11.9 TYPE 2 DIABETES MELLITUS WITHOUT COMPLIC 11/30/2018 RUDDY MORRIS DO Ot E78.00 PURE HYPERCHOLESTEROLEMIA, UNSPECIFIED 11/30/2018 RUDDY MORRIS DO, Ot G43.909 MIGRAINE, UNSP, NOT INTRACTABLE, WITHOUT 11/30/2018 RUDDY MORRIS DO Ot I10 ESSENTIAL (PRIMARY) HYPERTENSION 11/30/2018 RUDDY MORRIS DO, Ot I25.10 ATHSCL HEART DISEASE OF [place] CORONARY 11/30/2018 RUDDY MORRIS DO, Ot I25.2 OLD MYOCARDIAL INFARCTION 11/30/2018 RUDDY MORRIS DO, Ot J44.9 CHRONIC OBSTRUCTIVE PULMONARY DISEASE, U 11/30/2018 RUDDY MORRIS DO Ot R07.2 PRECORDIAL PAIN 11/30/2018 RUDDY MORRIS DO, Ot R07.9 CHEST PAIN, UNSPECIFIED 11/30/2018 RUDDY MORRIS DO Ot Z77.22 CNTCT W AND EXPSR TO ENVIRON TOBACCO SMO 11/30/2018 RUDDY MORRIS DO Ot Z88.5 ALLERGY STATUS TO NARCOTIC AGENT STATUS 11/30/2018 RUDDY MORRIS DO, Ot Z88.8 ALLERGY STATUS TO OTH DRUG/MEDS/BIOL SUB 11/30/2018 RUDDY MORRIS DO Ot Z90.710 ACQUIRED ABSENCE OF BOTH CERVIX AND UTER 11/30/2018 RUDDY MORRIS DO Ot Z90.89 ACQUIRED ABSENCE OF OTHER ORGANS 11/30/2018 RUDDY MORRIS DO Ot Z98.51 TUBAL LIGATION STATUS 12/03/2018 SUMI REESE DO, Ot E11.9 TYPE 2 DIABETES MELLITUS WITHOUT COMPLIC 12/03/2018 SUMI REESE DO Ot E66.01 MORBID (SEVERE) OBESITY DUE TO EXCESS CA 12/03/2018 SUMI REESE DO Ot E78.5 HYPERLIPIDEMIA, UNSPECIFIED 12/03/2018 REESE DO, SUMI Ot F17.21 0 NICOTINE DEPENDENCE, CIGARETTES, UNCOMPL 12/03/2018 MARY ANN LUZ SUMI Ot I11.0 HYPERTENSIVE HEART DISEASE WITH HEART FA 12/03/2018 MARY ANN LUZ SUMI Ot I21.3 ST ELEVATION (STEMI) MYOCARDIAL INFARCTI 12/03/2018 MARY ANN LUZ SUMI Ot 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 12/03/2018 MARY ANN LUZ SUMI Ot I25.5 ISCHEMIC CARDIOMYOPATHY 12/03/2018 MARY ANN LUZ SUMI Ot I49.3 VENTRICULAR PREMATURE DEPOLARIZATION 12/03/2018 MARY ANN LUZ SUMI Ot I50.21 ACUTE SYSTOLIC (CONGESTIVE) HEART FAILUR 12/03/2018 SUMI REESE DO Ot J44.9 CHRONIC OBSTRUCTIVE PULMONARY DISEASE, U 12/03/2018 MARY ANN LUZ SUMI Ot Z68.39 BODY MASS INDEX (BMI) 39.0-39.9, ADULT 12/03/2018 MARY ANN LUZ SUMI Ot Z79.4 MCFP (CURRENT) USE OF INSULIN 12/03/2018 MARY ANN LUZ SUMI Ot Z86.73 PRSNL HX OF TIA (TIA), AND CEREB INFRC W 12/03/2018 MARY ANN LUZ SUMI Ot Z90.71 0 ACQUIRED ABSENCE OF BOTH CERVIX AND UTER 12/08/2018 MAXIMO RUBIO Ot I49.9 CARDIAC ARRHYTHMIA, UNSPECIFIED 12/09/2018 MARY ANN LUZ SUMI Ot E11.9 TYPE 2 DIABETES MELLITUS WITHOUT COMPLIC 12/09/2018 MARY ANN LUZ SUMI Ot E66.01 MORBID (SEVERE) OBESITY DUE TO EXCESS CA 12/09/2018 MARY ANN LUZ SUMI Ot E78.5 HYPERLIPIDEMIA, UNSPECIFIED 12/09/2018 MARY ANN LUZ SUMI Ot F17.21 0 NICOTINE DEPENDENCE, CIGARETTES, UNCOMPL 12/09/2018 MARY ANN LUZ SUMI Ot I11.0 HYPERTENSIVE HEART DISEASE WITH HEART FA 12/09/2018 MARY ANN LUZ SUMI Ot 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 12/09/2018 MARY ANN LUZ SUMI Ot I25.5 ISCHEMIC CARDIOMYOPATHY 12/09/2018 MARY ANN LUZ SUMI Ot I49.3 VENTRICULAR PREMATURE DEPOLARIZATION 12/09/2018 MARY ANN LUZ SUMI Ot I50.21 ACUTE SYSTOLIC (CONGESTIVE) HEART FAILUR 12/09/2018 MARY ANN LUZ SUMI Ot J44.9 CHRONIC OBSTRUCTIVE PULMONARY DISEASE, U 12/09/2018 MARY ANN LUZ SUMI Ot Z68.39 BODY MASS INDEX (BMI) 39.0-39.9, ADULT 12/09/2018 REESE DO SUMI Ot Z79.4 MCFP (CURRENT) USE OF INSULIN 12/09/2018 MARY ANN LUZ SUMI Ot Z86.73 PRSNL HX OF TIA (TIA), AND CEREB INFRC W 12/09/2018 REESE DO SUMI Ot Z90.71 0 ACQUIRED ABSENCE OF BOTH CERVIX AND UTER 12/11/2018 MARY ANN LUZ SUMI Ot E11.9 TYPE 2 DIABETES MELLITUS WITHOUT COMPLIC 12/11/2018 MARY ANN DO SUMI Ot E66.01 MORBID (SEVERE) OBESITY DUE TO EXCESS CA 12/11/2018 MARY ANN DO SUMI Ot E78.5 HYPERLIPIDEMIA, UNSPECIFIED 12/11/2018 MARY ANN LUZ SUMI Ot F17.21 0 NICOTINE DEPENDENCE, CIGARETTES, UNCOMPL 12/11/2018 MARY ANN LUZ SUMI Ot I11.0 HYPERTENSIVE HEART DISEASE WITH HEART FA 12/11/2018 MARY ANN LUZ SUMI Ot 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 12/11/2018 MARY ANN LUZ SUMI Ot I25.5 ISCHEMIC CARDIOMYOPATHY 12/11/2018 MARY ANN LUZ SUMI Ot I49.3 VENTRICULAR PREMATURE DEPOLARIZATION 12/11/2018 MARY ANN LUZ SUMI Ot I50.21 ACUTE SYSTOLIC (CONGESTIVE) HEART FAILUR 12/11/2018 SUMI REESE DO Ot J44.9 CHRONIC OBSTRUCTIVE PULMONARY DISEASE, U 12/11/2018 MARY ANN LUZ SUMI Ot Z68.39 BODY MASS INDEX (BMI) 39.0-39.9, ADULT 12/11/2018 MARY ANN LUZ SUMI Ot Z79.4 MCFP (CURRENT) USE OF INSULIN 12/11/2018 MARY ANN LUZ SUMI Ot Z86.73 PRSNL HX OF TIA (TIA), AND CEREB INFRC W 12/11/2018 REESE DO SUMI Ot Z90.71 0 ACQUIRED ABSENCE OF BOTH CERVIX AND UTER 12/20/2018 HUNG VIVEROS MD Ot J44.9 CHRONIC OBSTRUCTIVE PULMONARY DISEASE, U 04/03/2019 DEBRA HINOJOSA MD Ot Z48.812 ENCNTR FOR SURGICAL AFTCR FOLLOWING SURG 04/03/2019 ASHISH LEE, DEBRA Diaz Ot Z95. 5 PRESENCE OF CORONARY ANGIOPLASTY IMPLANT 04/06/2019 DEBRA HINOJOSA MD Ot Z48.812 ENCNTR FOR SURGICAL AFTCR FOLLOWING SURG 04/06/2019 DEBRA HINOJOSA MD Ot Z95. 5 PRESENCE OF CORONARY ANGIOPLASTY IMPLANT 04/13/2019 MYKEL POLANCO MD Ot E11.9 TYPE 2 DIABETES MELLITUS WITHOUT COMPLIC 04/13/2019 MYKEL POLANCO MD Ot E78.0 0 PURE HYPERCHOLESTEROLEMIA, UNSPECIFIED 04/13/2019 MYKEL POLANCO MD Ot G43.9 09 MIGRAINE, UNSP, NOT INTRACTABLE, WITHOUT 04/13/2019 MYKEL POLANCO MD Ot I10 ESSENTIAL (PRIMARY) HYPERTENSION 04/13/2019 MYKEL POLANCO MD Ot J44.9 CHRONIC OBSTRUCTIVE PULMONARY DISEASE, U 04/13/2019 MYKEL POLANCO MD Ot R51 HEADACHE 04/13/2019 MYKEL POLANCO MD Ot Z77.2 2 CNTCT W AND EXPSR TO ENVIRON TOBACCO SMO 04/13/2019 MYKEL POLANCO MD Ot Z88.5 ALLERGY STATUS TO NARCOTIC AGENT STATUS 04/13/2019 MYKEL POLANCO MD Ot Z88.8 ALLERGY STATUS TO OTH DRUG/MEDS/BIOL SUB 04/13/2019 MYKEL POLANCO MD Ot Z90.7 10 ACQUIRED ABSENCE OF BOTH CERVIX AND UTER 04/13/2019 MYKEL POLANCO MD Ot Z98.5 1 TUBAL LIGATION STATUS 04/16/2019 MYKEL POLANCO MD Ot E11.9 TYPE 2 DIABETES MELLITUS WITHOUT COMPLIC 04/16/2019 MYKEL POLANCO MD Ot E78.0 0 PURE HYPERCHOLESTEROLEMIA, UNSPECIFIED 04/16/2019 MYKEL POLANCO MD Ot G43.9 09 MIGRAINE, UNSP, NOT INTRACTABLE, WITHOUT 04/16/2019 MYKEL POLANCO MD Ot I10 ESSENTIAL (PRIMARY) HYPERTENSION 04/16/2019 MYKEL POLANCO MD Ot J44.9 CHRONIC OBSTRUCTIVE PULMONARY DISEASE, U 04/16/2019 MYKEL POLANCO MD Ot R51 HEADACHE 04/16/2019 MYKEL POLANCO MD Ot Z77.2 2 CNTCT W AND EXPSR TO ENVIRON TOBACCO SMO 04/16/2019 MYKEL POLANCO MD, Ot Z88.5 ALLERGY STATUS TO NARCOTIC AGENT STATUS 04/16/2019 MYKEL POLANCO MD, Ot Z88.8 ALLERGY STATUS TO OTH DRUG/MEDS/BIOL SUB 04/16/2019 MYKEL POLANCO MD, Ot Z90.7 10 ACQUIRED ABSENCE OF BOTH CERVIX AND UTER 04/16/2019 MYKEL POLANCO MD, Ot Z98.5 1 TUBAL LIGATION STATUS 04/30/2019 DEBRA HINOJOSA MD, Ot Z48.812 ENCNTR FOR SURGICAL AFTCR FOLLOWING SURG 04/30/2019 DEBRA HINOJOSA MD, Ot Z95. 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 5 PRESENCE OF CORONARY ANGIOPLASTY IMPLANT Procedures Code Description Performed By Per formed On [id number] LA ASURE OF CARDIAC SAMPL PRESSURE, L H 11/29/2018 [id number] FL UOROSCOPY OF MULT COR ART USING L OSM 11/29/2018 [id number] FL UOROSCOPY OF LEFT HEART USING LOW OSMO 11/29/2018 Results Test Result Range CMP - 08/13/18 09:25 GLUCOSE 383 mg/dL 65-99 UREA NITROGEN (BUN) 14 mg/dL 7-25 CREATININE 0.71 mg/dL 0.50-1.05 eGFR NON-AFR. [place] 99 mL/min/1.73m2 > OR = 60 eGFR 115 mL/min/1.73m2 > OR = 60 BUN/CREATININE RATIO NOT APPLICABLE (calc) 6-22 SODIUM 128 mmol/L 135-146 POTASSIUM 4.5 mmol/L 3.5-5.3 CHLORIDE 97 mmol/L 98-110 CARBON DIOXIDE 22 mmol/L 20-32 CALCIUM 9.4 mg/dL 8.6-10.4 PROTEIN, TOTAL 6.6 g/dL 6.1-8.1 ALBUMIN 3.9 g/dL 3.6-5.1 GLOBULIN 2.7 g/dL (calc) 1.9-3.7 ALBUMIN/GLOBULIN RATIO 1.4 (calc) 1.0-2. 5 BILIRUBIN, TOTAL 0.4 mg/dL 0.2-1.2 ALKALINE PHOSPHATASE 109 U/L 33-130 AST 10 U/L 10-35 ALT 10 U/L 6-29 A1C - 08/13/18 09:25 HEMOGLOBIN A1c 13.3 % of total Hgb <5.7 GLUCOSE, SERUM - 08/30/18 09:58 GLUCOSE 115 mg/dL 65-99 C-PEPTIDE, SERUM - 08/30/18 09:58 C-PEPTIDE 1.31 ng/mL 0.80-3.85 SUREPATH PAP RFX HPV mRNA E6/E7 - 10:51 CLINICAL INFORMATION: NRG LMP: NRG PREV. PAP: NRG PREV. BX: NRG SOURCE: Vagina NRG STATEMENT OF ADEQUACY: NRG INTERPRETATION/RESULT: NRG ORTHOPEDIC DESIGNER: NRG COMMENT NRG CULTURE, ANAEROBIC AND AEROBIC - 9 11:00 CULTURE, ANAEROBIC BACTERIA W/GRAM STAIN SEE NOTE NRG CULTURE, AEROBIC BACTERIA SEE NOTE NRG CBC - 09/22/18 09:43 WHITE BLOOD CELL COUNT 11.7 Thousand/uL 3.8-10.8 RED BLOOD CELL COUNT 4.72 Million/uL 3.8 0-5.10 HEMOGLOBIN 15.0 g/dL 11.7-15.5 HEMATOCRIT 44.6 % 35.0-45.0 MCV 94.5 fL 80.0-100.0 MCH 31.8 pg 27.0-33.0 MCHC 33.6 g/dL 32.0-36.0 RDW 12.8 % 11.0-15.0 PLATELET COUNT 240 Thousand/uL 140-400 MPV 12.1 fL 7.5-12.5 ABSOLUTE NEUTROPHILS 6985 cells/uL 1500- 7800 ABSOLUTE LYMPHOCYTES 3767 cells/uL 850-3 900 ABSOLUTE MONOCYTES 679 cells/uL 200-950 ABSOLUTE EOSINOPHILS 187 cells/uL 15-500 ABSOLUTE BASOPHILS 82 cells/uL 0-200 NEUTROPHILS 59.7 % NRG LYMPHOCYTES 32.2 % NRG MONOCYTES 5.8 % NRG EOSINOPHILS 1.6 % NRG BASOPHILS 0.7 % NRG Complete blood count (CBC) with automate d white blood cell (WBC) differential - 09/22/18 18:24 Blood leukocytes automated count (number/volume) 12.5 10*3/uL 4.3-11.0 Blood erythrocytes automated count (number/volume) 4.83 10*6/uL 4.35-5.85 Venous blood hemoglobin measurement (mass/volume) 15.4 g/dL 11.5-16.0 Blood hematocrit (volume fraction) 46 % 35-52 Automated erythrocyte mean corpuscular volume 94 [ foz_us] 80-99 Automated erythrocyte mean corpuscular h emoglobin (mass per erythrocyte) 32 pg 25-34 Automated erythrocyte mean corpuscular h emoglobin concentration measurement (mass/volume) 34 g/dL 32-36 Automated erythrocyte distribution width ratio 12. 7 % 10.0- 14.5 Automated blood platelet count (count/volume) 259 10*3/uL 130-400 Automated blood platelet mean volume measurement 11.0 [foz_us] 7.4-10.4 Automated blood neutrophils/100 leukocytes 58 % 42-75 Automated blood lymphocytes/100 leukocytes 32 % 12-44 Blood monocytes/100 leukocytes 7 % 0-12 Automated blood eosinophils/100 leukocytes 2 % 0-10 Automated blood basophils/100 leukocytes 1 % 0-10 Blood neutrophils automated count (number/volume) 7.2 10*3 1.8-7.8 Blood lymphocytes automated count (number/volume) 4.0 10*3 1.0-4.0 Blood monocytes automated count (number/volume) 0. 9 10*3 0.0-1.0 Automated eosinophil count 0.2 10*3/uL 0 .0-0.3 Automated blood basophil count (count/volume) 0.1 10*3/uL 0.0-0.1 Comprehensive metabolic panel - 09/22/18 18:24 Serum or plasma sodium measurement (moles/volume) 140 mmol/L 135-145 Serum or plasma potassium measurement (moles/volume) 4.2 mmol/L 3.6-5.0 Serum or plasma chloride measurement (moles/volume) 101 mmol/L 98-107 Carbon dioxide 22 mmol/L 21-32 Serum or plasma anion gap determination (moles/volume) 17 mmol/L 5-14 Serum or plasma urea nitrogen measurement (mass/volume ) 18 mg/dL 7-18 Serum or plasma creatinine measurement (mass/volume) 0.55 mg/dL 0.60-1.30 Serum or plasma urea nitrogen/creatinine mass ratio 33 NRG Serum or plasma creatinine measurement w ith calculation of estimated glomerular filtration rate > NRG Serum or plasma glucose measurement (mass/volume) 239 mg/dL 70-105 Serum or plasma calcium measurement (mass/volume) 9.0 mg/dL 8.5-10.1 Serum or plasma total bilirubin measurement (mass/volu me) 0.2 mg/dL 0.1-1.0 Serum or plasma alkaline phosphatase nicole surement (enzymatic activity/volume) 92 U/L 40-136 Serum or plasma aspartate aminotransfera se measurement (enzymatic activity/volume) 14 U/L 5-34 Serum or plasma alanine aminotransferase measurement (enzymatic activity/volume) 17 U/L 0-55 Serum or plasma protein measurement (mass/volume) 6.8 g/dL 6.4-8.2 Serum or plasma albumin measurement (mass/volume) 3.8 g/dL 3.2-4.5 CALCIUM CORRECTED 9.2 mg/dL 8.5-10.1 Magnesium - 09/22/18 18:24 Magnesium 2.0 mg/dL 1.8-2.4 Serum or plasma troponin i.cardiac measu rement (mass/volume) - 09/22/18 18:24 Serum or plasma troponin i.cardiac measurement (mass/v olume) 0.33 ng/mL <0.30 PROBNP FS - 09/22/18 18:24 PROBNP FS 226.0 pg/mL <75.0 Lipase - 09/22/18 18:24 Lipase 17 U/L 8-78 PT panel in platelet poor plasma by coag ulation assay - 09/22/18 18:24 Prothrombin time (PT) in platelet poor plasma by coagu lation assay 12.0 s 12.2-14.7 INR in platelet poor plasma or blood by coagulation as say 0.9 0.8-1.4 Activated partial thromboplastin time (a PTT) in platelet poor plasma bycoagulation assay - 09/22/18 18:24 Activated partial thromboplastin time (a PTT) in platelet poor plasma bycoagulation assay 25 s 24-35 Complete urinalysis with reflex to cultu re - 09/22/18 18:30 Urine color determination YELLOW NRG Urine clarity determination CLEAR NR G Urine pH measurement by test strip 5.5 5-9 Specific gravity of urine by test strip > 1.016-1.022 Urine protein assay by test strip, semi-quantitative NEGATIVE NEGATIVE Urine glucose detection by automated test strip NE GATIVE NEGATIVE Erythrocytes detection in urine sediment by light micr oscopy NEGATIVE NEGATIVE Urine ketones detection by automated test strip TR MICHELE NEGATIVE Urine nitrite detection by test strip NEGATIVE NEGATIVE Urine total bilirubin detection by test strip 1+ NEGATIVE Urine urobilinogen measurement by automated test strip (mass/volume) 0.2 mg/dL NORMAL Urine leukocyte esterase detection by dipstick NEG ATIVE NEGATIVE Automated urine sediment erythrocyte cou nt by microscopy (number/high power field) NONE NRG Automated urine sediment leukocyte count by microscopy (number/high power field) NONE NRG Bacteria detection in urine sediment by light microsco py NONE NRG Squamous epithelial cells detection in u rine sediment by light microscopy 10-25 NRG Crystals detection in urine sediment by light microsco py NONE NRG Casts detection in urine sediment by light microscopy NONE NRG Mucus detection in urine sediment by light microscopy SMALL NRG Complete urinalysis with reflex to culture NO NRG Urine drug screening test - 09/22/18 18: 30 Urine phencyclidine detection by screening method NEGATIVE NEGATIVE Urine benzodiazepines detection by screening method NEGATIVE NEGATIVE Urine cocaine detection NEGATIVE NEGATI VE Urine amphetamines detection by screening method N EGATIVE NEGATIVE Urine methamphetamine detection by screening method NEGATIVE NEGATIVE Urine cannabinoids detection by screening method N EGATIVE NEGATIVE Urine opiates detection by screening method NEGATI VE NEGATIVE Urine barbiturates detection NEGATIVE N EGATIVE Screening urine tricyclic antidepressants detection NEGATIVE NEGATIVE Urine methadone detection by screening method NEGA TIVE NEGATIVE Urine oxycodone detection NEGATIVE NEGA TIVE Urine propoxyphene detection NEGATIVE N EGATIVE Fibrin D-dimer FEU measurement in platel et poor plasma (mass/volume) - 09/22/18 19:21 Fibrin D-dimer FEU measurement in platelet poor plasma (mass/volume) 0.42 ug/mL 0.00-0.49 Serum or plasma troponin i.cardiac measu rement (mass/volume) - 09/22/18 21:14 Serum or plasma troponin i.cardiac measurement (mass/v olume) < ng/mL <0.30 Capillary blood glucose measurement by g lucometer (mass/volume) - 09/22/18 22:11 Capillary blood glucose measurement by glucometer (mas s/volume) 125 mg/dL 70-110 EXTRA PAULA-TOP TUBE - 10/08/18 09:19 EXTRA PAULA-TOP TUBE NRG Complete blood count (CBC) with automate d white blood cell (WBC) differential - 11/26/18 23:30 Blood leukocytes automated count (number/volume) 11.7 10*3/uL 4.3-11.0 Blood erythrocytes automated count (number/volume) 4.58 10*6/uL 4.35-5.85 Venous blood hemoglobin measurement (mass/volume) 14.8 g/dL 11.5-16.0 Blood hematocrit (volume fraction) 44 % 35-52 Automated erythrocyte mean corpuscular volume 95 [ foz_us] 80-99 Automated erythrocyte mean corpuscular h emoglobin (mass per erythrocyte) 32 pg 25-34 Automated erythrocyte mean corpuscular h emoglobin concentration measurement (mass/volume) 34 g/dL 32-36 Automated erythrocyte distribution width ratio 12. 6 % 10.0- 14.5 Automated blood platelet count (count/volume) 237 10*3/uL 130-400 Automated blood platelet mean volume measurement 11.3 [foz_us] 7.4-10.4 Automated blood neutrophils/100 leukocytes 55 % 42-75 Automated blood lymphocytes/100 leukocytes 35 % 12-44 Blood monocytes/100 leukocytes 7 % 0-12 Automated blood eosinophils/100 leukocytes 2 % 0-10 Automated blood basophils/100 leukocytes 1 % 0-10 Blood neutrophils automated count (number/volume) 6.5 10*3 1.8-7.8 Blood lymphocytes automated count (number/volume) 4.1 10*3 1.0-4.0 Blood monocytes automated count (number/volume) 0. 8 10*3 0.0-1.0 Automated eosinophil count 0.2 10*3/uL 0 .0-0.3 Automated blood basophil count (count/volume) 0.1 10*3/uL 0.0-0.1 Fibrin D-dimer FEU measurement in platel et poor plasma (mass/volume) - 11/26/18 23:30 Fibrin D-dimer FEU measurement in platelet poor plasma (mass/volume) 0.41 ug/mL 0.00-0.49 Comprehensive metabolic panel - 11/26/18 23:30 Serum or plasma sodium measurement (moles/volume) 144 mmol/L 135-145 Serum or plasma potassium measurement (moles/volume) 4.2 mmol/L 3.6-5.0 Serum or plasma chloride measurement (moles/volume) 105 mmol/L 98-107 Carbon dioxide 23 mmol/L 21-32 Serum or plasma anion gap determination (moles/volume) 16 mmol/L 5-14 Serum or plasma urea nitrogen measurement (mass/volume ) 17 mg/dL 7-18 Serum or plasma creatinine measurement (mass/volume) 0.68 mg/dL 0.60-1.30 Serum or plasma urea nitrogen/creatinine mass ratio 25 NRG Serum or plasma creatinine measurement w ith calculation of estimated glomerular filtration rate > NRG Serum or plasma glucose measurement (mass/volume) 144 mg/dL 70-105 Serum or plasma calcium measurement (mass/volume) 9.1 mg/dL 8.5-10.1 Serum or plasma total bilirubin measurement (mass/volu me) 0.2 mg/dL 0.1-1.0 Serum or plasma alkaline phosphatase nicole surement (enzymatic activity/volume) 95 U/L 40-136 Serum or plasma aspartate aminotransfera se measurement (enzymatic activity/volume) 14 U/L 5-34 Serum or plasma alanine aminotransferase measurement (enzymatic activity/volume) 13 U/L 0-55 Serum or plasma protein measurement (mass/volume) 6.5 g/dL 6.4-8.2 Serum or plasma albumin measurement (mass/volume) 3.7 g/dL 3.2-4.5 CALCIUM CORRECTED 9.3 mg/dL 8.5-10.1 Serum or plasma troponin i.cardiac measu rement (mass/volume) - 11/26/18 23:30 Serum or plasma troponin i.cardiac measurement (mass/v olume) < ng/mL <0.30 PROBNP FS - 11/26/18 23:30 PROBNP FS 299.5 pg/mL <75.0 Serum or plasma troponin i.cardiac measu rement (mass/volume) - 11/27/18 01:39 Serum or plasma troponin i.cardiac measurement (mass/v olume) < ng/mL <0.30 Complete blood count (CBC) with automate d white blood cell (WBC) differential - 11/29/18 06:37 Blood leukocytes automated count (number/volume) 16.6 10*3/uL 4.3-11.0 Blood erythrocytes automated count (number/volume) 4.29 10*6/uL 4.35-5.85 Venous blood hemoglobin measurement (mass/volume) 13.8 g/dL 11.5-16.0 Blood hematocrit (volume fraction) 41 % 35-52 Automated erythrocyte mean corpuscular volume 96 [ foz_us] 80-99 Automated erythrocyte mean corpuscular h emoglobin (mass per erythrocyte) 32 pg 25-34 Automated erythrocyte mean corpuscular h emoglobin concentration measurement (mass/volume) 34 g/dL 32-36 Automated erythrocyte distribution width ratio 12. 5 % 10.0- 14.5 Automated blood platelet count (count/volume) 203 10*3/uL 130-400 Automated blood platelet mean volume measurement 11.3 [foz_us] 7.4-10.4 Automated blood neutrophils/100 leukocytes 67 % 42-75 Automated blood lymphocytes/100 leukocytes 26 % 12-44 Blood monocytes/100 leukocytes 5 % 0-12 Automated blood eosinophils/100 leukocytes 2 % 0-10 Automated blood basophils/100 leukocytes 1 % 0-10 Blood neutrophils automated count (number/volume) 11.0 10*3 1.8-7.8 Blood lymphocytes automated count (number/volume) 4.3 10*3 1.0-4.0 Blood monocytes automated count (number/volume) 0. 9 10*3 0.0-1.0 Automated eosinophil count 0.2 10*3/uL 0 .0-0.3 Automated blood basophil count (count/volume) 0.1 10*3/uL 0.0-0.1 PT panel in platelet poor plasma by coag ulation assay - 11/29/18 06:37 Prothrombin time (PT) in platelet poor plasma by coagu lation assay 12.5 s 12.2-14.7 INR in platelet poor plasma or blood by coagulation as say 0.9 0.8-1.4 Activated partial thromboplastin time (a PTT) in platelet poor plasma bycoagulation assay - 11/29/18 06:37 Activated partial thromboplastin time (a PTT) in platelet poor plasma bycoagulation assay 22 s 24-35 Manual absolute plasma cell count - 05/18 06:37 Blood monocytes/100 leukocytes 5 % NRG Manual blood segmented neutrophils/100 leukocytes 74 % NRG Blood band neutrophils/100 leukocytes 1 % NRG Manual blood lymphocytes/100 leukocytes 15 % NRG Manual eosinophils/100 leukocytes in nose 3 % NRG Manual blood lymphocytes variant/100 leukocytes 2 % NRG Fibrin D-dimer FEU measurement in platel et poor plasma (mass/volume) - 11/29/18 06:37 Fibrin D-dimer FEU measurement in platelet poor plasma (mass/volume) 0.71 ug/mL 0.00-0.49 Serum or plasma troponin i.cardiac measu rement (mass/volume) - 11/29/18 06:37 Serum or plasma troponin i.cardiac measurement (mass/v olume) 0.30 ng/mL <0.30 Comprehensive metabolic panel - 11/29/18 06:37 Serum or plasma sodium measurement (moles/volume) 140 mmol/L 135-145 Serum or plasma potassium measurement (moles/volume) 4.5 mmol/L 3.6-5.0 Serum or plasma chloride measurement (moles/volume) 105 mmol/L 98-107 Carbon dioxide 22 mmol/L 21-32 Serum or plasma anion gap determination (moles/volume) 13 mmol/L 5-14 Serum or plasma urea nitrogen measurement (mass/volume ) 14 mg/dL 7-18 Serum or plasma creatinine measurement (mass/volume) 0.62 mg/dL 0.60-1.30 Serum or plasma urea nitrogen/creatinine mass ratio 23 NRG Serum or plasma creatinine measurement w ith calculation of estimated glomerular filtration rate > NRG Serum or plasma glucose measurement (mass/volume) 264 mg/dL 70-105 Serum or plasma calcium measurement (mass/volume) 9.0 mg/dL 8.5-10.1 Serum or plasma total bilirubin measurement (mass/volu me) < mg/dL 0.1-1.0 Serum or plasma alkaline phosphatase nicole surement (enzymatic activity/volume) 83 U/L 40-136 Serum or plasma aspartate aminotransfera se measurement (enzymatic activity/volume) 19 U/L 5-34 Serum or plasma alanine aminotransferase measurement (enzymatic activity/volume) 21 U/L 0-55 Serum or plasma protein measurement (mass/volume) 6.5 g/dL 6.4-8.2 Serum or plasma albumin measurement (mass/volume) 3.7 g/dL 3.2-4.5 CALCIUM CORRECTED 9.2 mg/dL 8.5-10.1 Magnesium - 11/29/18 06:37 Magnesium 1.8 mg/dL 1.6-2.4 Myoglobin, serum - 11/29/18 06:37 Myoglobin, serum < ng/mL 10.0-92.0 Lipase - 11/29/18 06:37 Lipase 19 U/L 8-78 PROBNP FS - 11/29/18 06:37 PROBNP FS 1398.0 pg/mL <75.0 Erythrocyte sedimentation rate by juan josé gren method - 11/29/18 06:37 Erythrocyte sedimentation rate by westergren method 18 mm 0- 30 Serum or plasma C reactive protein measu rement (mass/volume) - 11/29/18 06:37 Serum or plasma C reactive protein measurement (mass/v olume) 0.33 mg/dL 0.00-0.50 Capillary blood glucose measurement by g lucometer (mass/volume) - 11/29/18 06:40 Capillary blood glucose measurement by glucometer (mas s/volume) 253 mg/dL 70-110 LIPID PANEL - 12/08/18 10:13 CHOLESTEROL, TOTAL 145 mg/dL <200 HDL CHOLESTEROL 26 mg/dL >50 TRIGLYCERIDES 218 mg/dL <150 LDL-CHOLESTEROL 87 mg/dL (calc) NRG CHOL/HDLC RATIO 5.6 (calc) <5.0 NON HDL CHOLESTEROL 119 mg/dL (calc) <13 0 CMP - 12/08/18 10:13 GLUCOSE 152 mg/dL 65-99 UREA NITROGEN (BUN) 13 mg/dL 7-25 CREATININE 0.71 mg/dL 0.50-1.05 eGFR NON-AFR. [place] 99 mL/min/1.73m2 > OR = 60 eGFR 115 mL/min/1.73m2 > OR = 60 BUN/CREATININE RATIO NOT APPLICABLE (calc) 6-22 SODIUM 140 mmol/L 135-146 POTASSIUM 4.5 mmol/L 3.5-5.3 CHLORIDE 106 mmol/L 98-110 CARBON DIOXIDE 23 mmol/L 20-32 CALCIUM 9.1 mg/dL 8.6-10.4 PROTEIN, TOTAL 6.5 g/dL 6.1-8.1 ALBUMIN 3.8 g/dL 3.6-5.1 GLOBULIN 2.7 g/dL (calc) 1.9-3.7 ALBUMIN/GLOBULIN RATIO 1.4 (calc) 1.0-2. 5 BILIRUBIN, TOTAL 0.3 mg/dL 0.2-1.2 ALKALINE PHOSPHATASE 85 U/L 33-130 AST 11 U/L 10-35 ALT 14 U/L 6-29 A1C - 12/08/18 10:13 HEMOGLOBIN A1c 7.0 % of total Hgb <5.7 Arterial blood gas measurement - 9 17:40 Blood pCO2 41 mm[Hg] 35-45 Blood pO2 83 mm[Hg] 79-93 Arterial blood bicarbonate measurement (moles/volume) 28 mmol/L 23-27 Arterial blood base excess by calculation 3.3 mmol /L -2.5-2.5 Arterial blood oxygen saturation measurement 97 % 94-100 * Inhaled oxygen flow rate ROOM AIR NRG Arterial blood pH measurement with patient temperature correction 7.44 7.37-7.43 Arterial blood carbon dioxide, total measurement (mole s/volume) 29.1 mmol/L 21.0-31.0 Body site RT WRIST NRG Assessment of wrist artery patency prior to arterial p uncture [place] NRG Setting of ventilation mode NO NR G Measurement of body temperature 36.6 C NRG Capillary blood glucose measurement by g lucometer (mass/volume) - 01/10/19 10:59 Capillary blood glucose measurement by glucometer (mas s/volume) 236 mg/dL 70-110 Capillary blood glucose measurement by g lucometer (mass/volume) - 01/31/19 10:18 Capillary blood glucose measurement by glucometer (mas s/volume) 313 mg/dL 70-110 A1C - 05/30/19 13:43 HEMOGLOBIN A1c 13.5 % of total Hgb <5.7 Encounters ACCT No. Visit Date/Time Discharge Status Pt. Type Provider Facility Loc./Unit Complaint [id number] 06/30/2019 11:00:00 06/30/2019 23:59:5 9 CLS Outpatient SELF, [facility] [id number] 05/30/2019 13:30:00 Document Registration [id number] 12/08/2018 10:15:00 Document Registration [id number] 10/08/2018 09:15:00 Document Registration [id number] 09/22/2018 08:30:00 Document Registration [id number] 09/01/2018 10:45:00 Document Registration [id number] 08/30/2018 10:00:00 Document Registration [id number] 08/13/2018 10:15:00 Document Registration [id number] 05/06/2019 11:32:00 00:01:00 DIS Outpatient DEBRA HINOJOSA MD [facility] CR STENT [id number] 05/09/2019 07:49:00 23:59:59 CLS Outpatient TOMAS OLIVER [facility] CARD CAD [id number] 04/09/2019 20:41:00 21:19:00 DIS Outpatient MYKEL POLANCO MD [facility] ER FS MIGRAINE [id number] 03/25/2019 10:48:00 00:01:00 DIS Outpatient DEBRA HINOJOSA MD [facility] CR STENT [id number] 01/08/2019 17:27:00 23:59:59 CLS Outpatient SELF HUNG LEE [facility] LAB J44.9 [id number] 12/16/2018 09:55:00 23:59:59 CLS Outpatient SELF HUNG LEE [facility] LAB CHRONIC OBSTRUCTIVE PUL MONARY [id number] 11/29/2018 09:01:00 11:33:00 DIS Outpatient SUMI REESE DO [facility] CATH CHEST PAIN [id number] 11/26/2018 23:22:00 02:55:00 DIS Emergency RUDDY MORRIS DO [facility] ER FS SOA, CHEST PAIN [id number] 11/04/2018 10:50:00 23:59:59 CLS Outpatient MAXIMO RUBIO [facility] CARD IRREGULAR HEART BEATS [id number] 09/22/2018 17:53:00 019 22:28:00 DIS Emergency ENRIQUETA GREER DO [facility] ER FS TIGHTNESS IN CHEST [id number] 09/07/2018 17:45:00 019 18:38:00 DIS Emergency MYKEL POLANCO MD [facility] ER FS MIGRAINE
--- NOTE | 2019-08-21 21:19 | ED General ---
General Chief Complaint: Head/Cervical Problems Stated Complaint: MIGRAINE History of Present Illness Date Seen by Provider: August 21, 2019 Time Seen by Provider: 21:19 Initial Comments Patient presenting to emergency department for evaluation of a headache that she says has been going on all day. She says it is diffuse and pounding and feels exact same as prior migraine headaches. No fevers neck stiffness unilateral weakness numbness tingling. She says she usually gets Toradol Phenergan Benadryl and this helps her migraine headaches significantly. Allergies and Home Medications Allergies Coded Allergies: morphine (Verified Allergy, Intermediate, Itching, 09/22/18) May take it with Benadryl bupropion (Verified Allergy, Unknown, 09/22/18) Patient Home Medication List Home Medication List Reviewed: Yes Review of Systems Review of Systems Constitutional: no symptoms reported EENTM: no symptoms reported Respiratory: no symptoms reported Cardiovascular: no symptoms reported Gastrointestinal: nausea Musculoskeletal: no symptoms reported Psychiatric/Neurological: Headache All Other Systems Reviewed Negative Unless Noted: Yes Past Byirkor-Waheom-Gbviaa Hx Patient Social History Type Used: Cigarettes 2nd Hand Smoke Exposure: Yes Recent Foreign Travel: No Contact w/Someone Who Travel: No Recent Hopitalizations: No Seasonal Allergies Seasonal Allergies: No Past Medical History Surgeries: Yes (colonoscopy; carpal tunnel) Section, Gallbladder, Hysterectomy, Orthopedic, Tonsillectomy, Tubal Ligation Respiratory: Yes COPD Cardiac: Yes High Cholesterol, Hypertension Neurological: Yes Headaches /Migraines [employer] History: Hysterectomy, Tubal Ligation Genitourinary: No Gastrointestinal: No Musculoskeletal: No Endocrine: Yes Diabetes, Insulin dep HEENT: No Cancer: No Psychosocial: No Integumentary: No Blood Disorders: No Adverse Reaction/Blood Tranf: No Physical Exam Vital Signs Vital Signs - First Documented 08/21/19 21:05 Temp 36.0 Pulse 93 Resp 18 B/P (MAP) 96/70 (79) Pulse Ox 96 O2 Delivery Room Air Capillary Refill : Height, Weight, BMI Height: 5'5.00" Weight: 240lbs. 0oz. 108.902537by; 40.40 BMI Method:Stated General Appearance: No Apparent Distress, WD/WN HEENT: PERRL/EOMI Neck: Full Range of Motion, Non Tender, Supple Respiratory: Lungs Clear, No Respiratory Distress Cardiovascular: Regular Rate, Rhythm Extremity: Normal Capillary Refill Neurologic/Psychiatric: Alert, Oriented x3 Skin: Warm/Dry Progress/Results/Core Measures Suspected Sepsis SIRS Temperature: Pulse: Respiratory Rate: Blood Pressure / Mean: Results/Orders My Orders Orders - SANDY ESTRELLA DO Promethazine Injection (Phenergan Injec (08/21/19 21:30) Ketorolac Injection (Toradol Injection) (08/21/19 21:30) Diphenhydramine Injection (Benadryl Inje (08/21/19 21:30) Vital Signs/I&O 08/21/19 21:05 Temp 36.0 Pulse 93 Resp 18 B/P (MAP) 96/70 (79) Pulse Ox 96 O2 Delivery Room Air Capillary Refill : Progress Note : Progress Note Patient says she usually goes home after getting her shots and goes to sleep and feels much better after waking up. Given she appears well with normal vital signs she will be discharged in stable condition told to follow primary care provider within 2-3 days and come back to the ED sooner with worsening pain neurologic changes or other general concerns. Departure Impression Primary Impression: Migraine Qualified Codes: G43.009 - Migraine without aura, not intractable, without status migrainosus Disposition: HOME, SELF-CARE Condition: Stable Departure-Patient Inst. Referrals: SELF,HUNG LEE (PCP/Family) Primary Care Physician Patient Instructions: Migraine Headache (DC) SANDY ESTRELLA DO August 21, 2019 21:19
[2019-08-21] MEDS ORDERED: PROMETHAZINE INJ 25 MG/ML (PHENERGAN) AMP IM ONE (21:30)
[2019-08-21] MEDS ORDERED: diphenhydrAMINE 50 MG/ML INJ (BENADRYL) IM ONE (21:30)
[2019-08-21] MEDS ORDERED: KETOROLAC 60 MG/2 ML VIAL IM ONE (21:30)
[2019-08-21 21:32] VITALS: BP 96/70
== END 2019-08-21 21:33 | disposition home or self-care (01) ==
LOC: EDUNIT# 21:02 → ER FS 21:05
DX: G43.909 Migraine, unspecified, not intractable, without status migrainosus (principal); Z88.5 Allergy status to narcotic agent; Z88.8 Allergy status to other drugs, medicaments and biological substances; Z77.22 Contact with and (suspected) exposure to environmental tobacco smoke (acute) (chronic)
CPT/HCPCS: 99284

== ENCOUNTER 2019-09-05 23:35 | Emergency (ER) | payer MEDICAID ==
[~2019-09-05] VITALS: Ht 165.1 cm; Wt 107.7 kg
--- NOTE | 2019-09-05 23:54 | ED Headache ---
General Chief Complaint: Head/Cervical Problems Stated Complaint: HEADACHE Source: patient History of Present Illness Date Seen by Provider: Sep 05, 2019 Time Seen by Provider: 23:40 Initial Comments The patient is a 49-year-old female who presents for evaluation of a migraine headache. She states that she gets frequent migraine headaches and was seen in this emergency department about a week ago. She says her is a cocktail of Toradol, Phenergan, and oral Benadryl which normally helps her. There are no unusual symptoms associated with her headache at this time. She is alert and oriented 4, calm, and appears to be no distress. She denies fevers or chills, neck pain or stiffness, rash, cough, shortness of breath, vision changes, focal weakness or numbness, dizziness or syncope. Severity/Quality: mild Location: frontal Prior Headaches/Recent Trauma: frequent headaches Modifying Factors: improves with exposure to light (makes it worse) Associated Symptoms: denies symptoms Allergies and Home Medications Allergies Coded Allergies: morphine (Verified Allergy, Intermediate, Itching, 09/22/18) May take it with Benadryl bupropion (Verified Allergy, Unknown, 09/22/18) Patient Home Medication List Home Medication List Reviewed: Yes Review of Systems Review of Systems Constitutional: no symptoms reported Eyes: No Symptoms Reported Ears, Nose, Mouth, Throat: no symptoms reported Respiratory: no symptoms reported Cardiovascular: no symptoms reported Gastrointestinal: no symptoms reported Genitourinary: no symptoms reported Musculoskeletal: no symptoms reported Skin: no symptoms reported Psychiatric/Neurological: Headache All Other Systems Reviewed Negative Unless Noted: Yes Past Dhxfuiq-Eynwcm-Xwoknv Hx Past Med/Social Hx: Reviewed Nursing Past Med/Soc Hx Patient Social History Type Used: Cigarettes 2nd Hand Smoke Exposure: Yes Recent Foreign Travel: No Contact w/Someone Who Travel: No Recent Hopitalizations: No Seasonal Allergies Seasonal Allergies: No Past Medical History Surgeries: Yes (colonoscopy; carpal tunnel) Section, Gallbladder, Hysterectomy, Orthopedic, Tonsillectomy, Tubal Ligation Respiratory: Yes COPD Cardiac: Yes Heart Attack, High Cholesterol, Hypertension Neurological: Yes Headaches /Migraines [employer] History: Hysterectomy, 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 0oz. 108.719742lt; 38.00 BMI Method:Stated General Appearance: WD/WN, no apparent distress, obese HEENT: PERRL/EOMI, normal ENT inspection, pharynx normal Neck: non-tender, full range of motion, normal inspection Extremities: normal range of motion, normal inspection Psychiatric: alert, oriented x 3 Crainal Nerves: normal hearing, normal speech, PERRL Skin: normal color, warm/dry Progress/Results/Core Measures Progress Progress Note : Progress Note @0015 - Patient given medication states that she is feeling much better. She is asking to be discharged home. Advised the patient to follow up with her PCP in the next 2-3 days and to return to the Emergency Department immediately Flexor serious headache etiology identified at this time. Departure Impression Primary Impression: Migraine Disposition: 01 HOME, SELF-CARE Condition: Stable Departure-Patient Inst. Decision time for Depature: 00:15 Referrals: SELFHUNG MD (PCP/Family) Primary Care Physician Patient Instructions: Migraine Headache (DC) Add. Discharge Instructions: Take Tylenol or ibuprofen at home for pain relief. Drink plenty of water. Follow-up with your doctor in the next 1-2 days. Return to the emergency Department immediately for new or worsening symptoms. ELIANA MUIR DO Sep 05, 2019 23:54
[2019-09-06] MEDS ORDERED: KETOROLAC 60 MG/2 ML VIAL IM ONE
[2019-09-06] MEDS ORDERED: PROMETHAZINE INJ 25 MG/ML (PHENERGAN) AMP IM ONE
[2019-09-06] MEDS ORDERED: diphenhydrAMINE 25 MG TAB (BENADRYL) PO ONE
[2019-09-06 00:10] VITALS: BP 128/81
--- OUTSIDE RECORDS SUMMARY | 2019-09-06 02:29 | XMS REPORT | Continuity of Care Document ---
Author Organization Unknown Address Unknown Phone Unavailable Allergies Active Description Code Type Severity Reaction Onset Reported/Identified Relationship to Patient Clinical Status Yes bupropion [id number] Drug Allergy Unknown N/A 09/22/2018 Yes morphine [id number] Drug Allergy Moderate Itching 09/22/2018 Medications There [...] DO Ot I49.3 VENTRICULAR PREMATURE DEPOLARIZATION 09/24/2018 ENRIQUEAT GREER DO Ot R07.89 OTHER CHEST PAIN [...] RUDDY Ot I10 ESSENTIAL (PRIMARY) HYPERTENSION 11/27/2018 [place] DO, RUDDY Ot I25.10 ATHSCL HEART DISEASE OF [place] CORONARY 11/27/2018 MORRIS DO, RUDDY Ot I25.2 OLD MYOCARDIAL INFARCTION 11/27/2018 [place] DO, RUDDY Ot J44.9 CHRONIC OBSTRUCTIVE PULMONARY DISEASE, U 11/27/2018 [place] DO, RUDDY Ot R07.2 PRECORDIAL PAIN 11/27/2018 [place] DO, RUDDY Ot R07.9 CHEST PAIN, UNSPECIFIED 11/27/2018 [place] DO, RUDDY Ot Z77.22 CNTCT W AND EXPSR TO ENVIRON TOBACCO SMO 11/27/2018 [place] DO, RUDDY Ot Z88.5 ALLERGY STATUS TO NARCOTIC AGENT STATUS 11/27/2018 [place] DO, RUDDY Ot Z88.8 ALLERGY STATUS TO OTH DRUG/MEDS/BIOL SUB 11/27/2018 [place] DO, RUDDY Ot Z90.710 ACQUIRED ABSENCE OF BOTH CERVIX AND UTER 11/27/2018 [place] DO, RUDDY Ot Z90.89 ACQUIRED ABSENCE OF OTHER ORGANS 11/27/2018 [place] DO, RUDDY Ot Z98.51 TUBAL LIGATION STATUS [...] Ot 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 11/29/2018 SUMI REESE DO Ot I25.5 ISCHEMIC CARDIOMYOPATHY 11/29/2018 SUMI REESE DO Ot I49.3 VENTRICULAR PREMATURE DEPOLARIZATION 11/29/2018 SUMI REESE DO Ot I50.21 ACUTE SYSTOLIC (CONGESTIVE) HEART FAILUR 11/29/2018 SUMI REESE DO Ot J44.9 CHRONIC OBSTRUCTIVE PULMONARY DISEASE, U 11/29/2018 SUMI REESE DO, Ot Z68.39 BODY MASS INDEX (BMI) 39.0-39.9, ADULT 11/29/2018 SUMI REESE DO, Ot Z79.4 CCIE (CURRENT) USE OF INSULIN 11/29/2018 SUMI REESE [...] DO, Ot I25.10 ATHSCL HEART DISEASE OF [place] CORONARY 11/30/2018 RUDDY MORRIS DO, Ot I25.2 [...] (SEVERE) OBESITY DUE TO EXCESS CA 12/03/2018 USMI REESE DO Ot E78.5 HYPERLIPIDEMIA, UNSPECIFIED 12/03/2018 REESE DO, SUMI Ot F17.21 0 NICOTINE DEPENDENCE, CIGARETTES, UNCOMPL 12/03/2018 MARY ANN LUZ SUMI Ot I11.0 HYPERTENSIVE HEART DISEASE WITH HEART FA 12/03/2018 MARY ANN LUZ SUMI Ot I21.3 ST ELEVATION (STEMI) MYOCARDIAL INFARCTI 12/03/2018 MARY ANN LUZ SUMI Ot 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 12/03/2018 MARY ANN LUZ [...] 12/03/2018 MARY ANN LUZ SUMI Ot Z79.4 CCIE (CURRENT) USE OF INSULIN 12/03/2018 MARY ANN [...] Ot 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 12/09/2018 MARY ANN LUZ [...] ADULT 12/09/2018 REESE DO SUMI Ot Z79.4 CCIE (CURRENT) USE OF INSULIN 12/09/2018 MARY ANN [...] Ot 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 5 PRESENCE OF CORONARY ANGIOPLASTY IMPLANT 05/10/2019 ÁLVARO OLIVER Ot E78.2 MIXED HYPERLIPIDEMIA 05/10/2019 ÁLVARO OLIVER Ot I11.9 HYPERTENSIVE HEART DISEASE WITHOUT HEART 05/10/2019 ÁLVARO OLIVER Ot I25.10 ATHSCL HEART DISEASE OF [place] CORONARY 05/10/2019 ÁLVARO OLIVER Ot I25.89 OTHER FORMS OF CHRONIC ISCHEMIC HEART DI 05/10/2019 ÁLVARO OLIVER Ot I49.1 ATRIAL PREMATURE DEPOLARIZATION 07/28/2019 DEBRA HINOJOSA MD Ot Z48.812 ENCNTR FOR SURGICAL AFTCR FOLLOWING SURG 07/28/2019 DEBRA HINOJOSA MD Ot Z95. 5 PRESENCE OF CORONARY ANGIOPLASTY IMPLANT 08/25/2019 SANDY ESTRELLA DO Ot G43.909 MIGRAINE, UNSP, NOT INTRACTABLE, WITHOUT 08/25/2019 SANDY ESTRELLA DO Ot R51 HEADACHE 08/25/2019 SANDY ESTRELLA DO Ot Z77.22 CNTCT W AND EXPSR TO ENVIRON TOBACCO SMO 08/25/2019 SANDY ESTRELLA DO Ot Z88 .5 ALLERGY STATUS TO NARCOTIC AGENT STATUS 08/25/2019 SANDY ESTRELLA DO Ot Z88 .8 ALLERGY STATUS TO OTH DRUG/MEDS/BIOL SUB Procedures Code Description Performed By Per loni On [id number] PR ASURE OF CARDIAC SAMPL PRESSURE, L H 11/29/2018 [id number] FL UOROSCOPY OF MULT COR ART USING L OSM 11/29/2018 [id number] FL UOROSCOPY OF LEFT HEART USING LOW OSMO 11/29/2018 Results Test Result Range CMP - 08/13/18 09:25 GLUCOSE 383 mg/dL 65-99 UREA NITROGEN (BUN) 14 mg/dL 7-25 CREATININE 0.71 mg/dL 0.50-1.05 eGFR NON-AFR. SAMMARIN[place] 99 mL/min/1.73m2 > OR = 60 eGFR [...] NRG STATEMENT OF ADEQUACY: NRG INTERPRETATION/RESULT: NRG RIPPLER: NRG COMMENT NRG CULTURE, ANAEROBIC AND AEROBIC [...] 7-25 CREATININE 0.71 mg/dL 0.50-1.05 eGFR NON-AFR. SAM[place] 99 mL/min/1.73m2 > OR = 60 eGFR [...] Status Pt. Type Provider Facility Loc./Unit Complaint [id number] 09/01/2019 11:00:00 09/01/2019 23:59:5 9 CLS Outpatient JACKELINE, HUNG SALINAS [facility] [id number] 05/30/2019 13:30:00 Document Registration [id number] 12/08/2018 10:15:00 Document Registration [id number] 10/08/2018 09:15:00 Document Registration [id number] 09/22/2018 08:30:00 Document Registration [id number] 09/01/2018 10:45:00 Document Registration [id number] 08/30/2018 10:00:00 Document Registration [id number] 08/13/2018 10:15:00 Document Registration [id number] 09/05/2019 23:38:00 00:11:00 DIS Emergency ISADORA MONROY DO [facility] ER FS HEADACHE [id number] 08/21/2019 21:05:00 020 21:33:00 DIS Outpatient SANDY ESTRELLA DO [facility] ER FS MIGRAINE [id number] 05/06/2019 11:32:00 020 00:01:00 DIS Outpatient DEBRA HINOJOSA MD [facility] CR STENT [id number] 05/09/2019 07:49:00 23:59:59 CLS Outpatient TOMAS OLIVER [facility] CARD CAD [id number] 04/09/2019 20:41:00 21:19:00 DIS Outpatient MYKEL POLANCO MD [facility] ER FS MIGRAINE [id number] 03/25/2019 10:48:00 020 00:01:00 DIS Outpatient DEBRA HINOJOSA MD [facility] CR STENT [id number] 01/08/2019 17:27:00 23:59:59 CLS Outpatient SELF HUNG LEE [facility] LAB J44.9 [id number] 12/16/2018 09:55:00 23:59:59 CLS Outpatient SELF HUNG LEE [facility] LAB CHRONIC OBSTRUCTIVE PUL MONARY [id number] 11/29/2018 09:01:00 11:33:00 DIS Outpatient SUMI REESE DO [facility] CATH CHEST PAIN [id number] 11/26/2018 23:22:00 02:55:00 DIS Emergency RUDDY MORRIS DO [facility] ER FS SOA, CHEST PAIN [id number] 11/04/2018 10:50:00 23:59:59 CLS Outpatient MAXIMO RUBIO [facility] CARD IRREGULAR HEART BEATS [id number] 09/22/2018 17:53:00 22:28:00 DIS Emergency ENRIQUETA GREER DO [facility] ER FS TIGHTNESS IN CHEST [id number] 09/07/2018 17:45:00 18:38:00 DIS Emergency MYKEL POLANCO MD [facility] ER FS MIGRAINE
== END 2019-09-06 00:11 | disposition home or self-care (01) ==
LOC: EDUNIT# 23:35 → ER FS 23:38
DX: G43.909 Migraine, unspecified, not intractable, without status migrainosus (principal); I25.2 Old myocardial infarction; Z88.5 Allergy status to narcotic agent; Z88.8 Allergy status to other drugs, medicaments and biological substances; Z77.22 Contact with and (suspected) exposure to environmental tobacco smoke (acute) (chronic)
CPT/HCPCS: 99284

== ENCOUNTER → 2019-12-15 | Outpatient (CLI) | payer MEDICAID ==
--- NOTE | 2019-12-15 13:11 | Diagnostic Imaging Report ---
INDICATION: Bilateral knee pain. TIME OF EXAM: 11:05 AM Multiple views bilateral knees were obtained. FINDINGS: Both knees demonstrate some tricompartmental degenerative changes, however this most significant involving the medial compartments of both knees where there is more joint space narrowing and marginal spurring. No fractures are identified. There is no dislocation. There is no joint effusion. IMPRESSION: Bilateral degenerative changes. No acute bony abnormality is detected. Dictated by: Dictated on workstation # [id number]
--- NOTE | 2019-12-15 13:15 | Diagnostic Imaging Report ---
INDICATION: Left hip pain. TIME OF EXAM: 11:04 AM 2 views of the left hip were obtained. Femoral acetabular alignment is normal. The femoral head and neck are intact. No fractures are seen. There is a questionable lucency involving the greater trochanter measuring 10 mm. This is indeterminate. IMPRESSION: 1. No acute bony abnormality detected. 2. Questionable lucency involving the greater trochanter. CT or MR of the left hip would be useful for further characterization. Dictated by: Dictated on workstation # [id number]
== END ==
LOC: RAD FS 10:47
PROVIDERS: ATTEND Family Medicine
DX: M17.0 Bilateral primary osteoarthritis of knee (principal); M25.552 Pain in left hip
CPT/HCPCS: 73502

== ENCOUNTER → 2020-02-06 | Outpatient (CLI) | payer MEDICAID ==
--- NOTE | 2020-02-06 11:07 | Diagnostic Imaging Report ---
PROCEDURE: CT left lower extremity without contrast. TECHNIQUE: Multiple contiguous axial images were obtained through the left lower extremity without the use of intravenous contrast. Sagittal and coronal reformations were then performed. Auto Exposure Controls were utilized during the CT exam to meet ALARA standards for radiation dose reduction. INDICATION: Left hip pain. COMPARISON: Left hip radiographs of 12/15/2019. FINDINGS: Bones: Normal osseous mineralization is present. No concerning focal osseous lesion. Specifically, there is no lucent abnormality within the greater trochanter as suggested by radiography. No fracture. Mild nonuniform joint space narrowing in the posterior aspect of the left hip is compatible with degenerative arthritis. No osteonecrosis of the femoral head. No acetabular retroversion. Normal femoral head and neck offset. Soft tissues: Musculature on the left hip is normal bulk. There are no features of acute tendon tear. No appreciable hip effusion. Additionally, there is no peritrochanteric fluid collection. IMPRESSION: 1. No focal osseous lesion in the left femur. Abnormality by radiography was due to summation artifact associated with normal trabeculation within the bone. 2. No fracture. 3. Mild degenerative arthritis of left hip. Dictated by: Dictated on workstation # [id number]
== END ==
LOC: RAD FS 09:59
PROVIDERS: ATTEND Family Medicine
DX: M16.12 Unilateral primary osteoarthritis, left hip (principal)
CPT/HCPCS: 73700

== ENCOUNTER 2020-06-13 22:21 | Emergency (ER) | payer MEDICAID ==
[~2020-06-13] VITALS: Ht 165 cm; Wt 100.0 kg
[2020-06-13 22:29] VITALS: BP 141/83
--- NOTE | 2020-06-13 22:40 | ED Headache ---
General Chief Complaint: Head/Cervical Problems Stated Complaint: NAUSEA,MIGRIANE Source: patient Exam Limitations: no limitations History of Present Illness Date Seen by Provider: Jun 13, 2020 Time Seen by Provider: 22:24 Initial Comments Patient presents ER by private conveyance from home with chief complaint of migraine headache starting about 2 to 3 hours ago. She typically takes sumatriptan but did not have any because she ran out. She started getting some nausea and she said usually by time she gets nauseated with her unilateral migraine headache the sumatriptan does not help. She says she has routinely had to come for a shot of Phenergan, Toradol and Benadryl. She rates her pain as a 8 out of 10 and is not having any weakness blindness numbness difficulty walking. No fevers chills cough shortness of air or sick contacts. Allergies and Home Medications Allergies Coded Allergies: morphine (Verified Allergy, Intermediate, Itching, 09/22/18) May take it with Benadryl bupropion (Verified Allergy, Unknown, 09/22/18) Patient Home Medication List Home Medication List Reviewed: Yes Review of Systems Review of Systems Constitutional: No chills, No diaphoresis Eyes: Denies Blindness, Denies Drainage Ears, Nose, Mouth, Throat: denies ear pain, denies mouth pain Respiratory: No hemoptysis, No orthopnea, No phlegm, No stridor Cardiovascular: No chest pain, No edema, No palpitations Gastrointestinal: No abdominal pain, No constipation, No diarrhea Genitourinary: No decreased output, No discharge Musculoskeletal: No back pain, No joint pain All Other Systems Reviewed Negative Unless Noted: Yes Past Hxvcgfa-Bvlzaz-Qkpfez Hx Patient Social History Alcohol Use: Denies Use Smoking Status: Current Everyday Smoker Type Used: Cigarettes 2nd Hand Smoke Exposure: Yes Recent Hopitalizations: No Seasonal Allergies Seasonal Allergies: No Past Medical History Surgeries: Yes (colonoscopy; carpal tunnel) Section, Gallbladder, Hysterectomy, Orthopedic, Tonsillectomy, Tubal Ligation Respiratory: Yes COPD Cardiac: Yes Heart Attack, High Cholesterol, Hypertension 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 0oz. 108.356042re; 39.00 BMI Method:Stated General Appearance: WD/WN, no apparent distress HEENT: PERRL/EOMI, pharynx normal Neck: full range of motion, normal inspection Cardiovascular: normal peripheral pulses, regular rate, rhythm Respiratory: no respiratory distress, no accessory muscle use Psychiatric: alert, oriented x 3 Skin: normal color, warm/dry Progress/Results/Core Measures Results/Orders My Orders Orders - CELESTE WHEELER Ketorolac Injection (Toradol Injection) (06/13/20 22:45) Diphenhydramine Injection (Benadryl Inje (06/13/20 22:45) Promethazine Injection (Phenergan Injec (06/13/20 22:45) Sumatriptan Injection (Imitrex Injection (06/13/20 22:45) Progress Progress Note : Time: 22:39 Progress Note Toradol, Phenergan, Benadryl. If we have sumatriptan subcutaneous we will give that. Encourage her to go home and get some sleep. Departure Impression Primary Impression: Migraine Qualified Codes: G43.009 - Migraine without aura, not intractable, without status migrainosus Disposition: 01 HOME, SELF-CARE Condition: Stable Departure-Patient Inst. Decision time for Depature: 22:39 Referrals: SELFHUNG MD (PCP/Family) Primary Care Physician Patient Instructions: Migraines (DC) Add. Discharge Instructions: Go home and take Tylenol 1000 mg every 8 hours, drink fluids and follow-up with your primary care doctor as necessary for refills. All discharge instructions reviewed with patient and/or family. Voiced understanding. CELESTE WHEELER Jun 13, 2020 22:40
[2020-06-13] MEDS ORDERED: KETOROLAC 60 MG/2 ML VIAL IM ONE (22:45)
[2020-06-13] MEDS ORDERED: PROMETHAZINE INJ 25 MG/ML (PHENERGAN) AMP IM ONE (22:45)
[2020-06-13] MEDS ORDERED: diphenhydrAMINE 50 MG/ML INJ (BENADRYL) IM ONE (22:45)
[2020-06-13] MEDS ORDERED: SUMAtriptan 6 MG/0.5 ML (IMITREX) INJ SQ ONE (22:45)
== END 2020-06-13 22:53 | disposition home or self-care (01) ==
LOC: EDUNIT# 22:21 → ER FS 22:22
DX: G43.909 Migraine, unspecified, not intractable, without status migrainosus (principal); E11.9 Type 2 diabetes mellitus without complications; F17.210 Nicotine dependence, cigarettes, uncomplicated; Z79.4 Long term (current) use of insulin; Z88.5 Allergy status to narcotic agent; Z88.8 Allergy status to other drugs, medicaments and biological substances
CPT/HCPCS: 99284

== ENCOUNTER 2020-07-29 21:58 | Emergency (ER) | payer MEDICAID ==
[~2020-07-29] VITALS: Ht 165.1 cm; Wt 132.4 kg
[2020-07-29] MEDS ORDERED: HYDROcodone/APAP 5 MG/325 MG (LORTAB) TAB PO ONE (22:30)
[2020-07-29] MEDS ORDERED: diphenhydrAMINE 25 MG TAB (BENADRYL) PO ONE (22:30)
[2020-07-29] MEDS ORDERED: PROCHLORPERAZINE 10 MG TAB (COMPAZINE) PO ONE (22:30)
--- NOTE | 2020-07-29 22:41 | ED Headache ---
General Chief Complaint: Head/Cervical Problems Stated Complaint: HEADACHE Nursing Triage Note: PT AMBULATE TO ROOM FS OF WITH C/O MIGRAINE X20 MIN. PT STATES SHE DID NOT TAKE ANYTHING FOR THE PAIN. PT STATES THAT SHE COMES TO ED TO GET SHOTS FOR PAIN. Nursing Sepsis Screen: No Definite Risk Source: patient Exam Limitations: no limitations History of Present Illness Date Seen by Provider: July 29, 2020 Time Seen by Provider: 22:00 Initial Comments Patient is a 50-year-old female with history of migraines and chronic pain who presented to the emergency department with typical migraine headache starting 50 minutes prior to ED arrival. Headache is retro-orbital involves both eyes and is described as dull and throbbing is rated moderate to severe. Headache progressed rapidly within just a few minutes and is continuous.. Patient does have Imitrex at home but did not take it as she did not feel as though would be strong enough. Patient states pain shots are the only thing that will help when it is so severe. Reports nausea without vomiting. No change in vision but does report light and sound sensitivity. No neck pain stiffness, rash, fever or recent illness. No extremity weakness or loss of sensation. No other acute symptoms or complaints. Timing/Duration: 1/2 hour Severity/Quality: moderate Location: frontal Prior Headaches/Recent Trauma: no recent headache/trauma, frequent headaches Modifying Factors: improves with other Associated Symptoms: other Allergies and Home Medications Allergies Coded Allergies: morphine (Verified Allergy, Intermediate, Itching, 09/22/18) May take it with Benadryl bupropion (Verified Allergy, Unknown, 09/22/18) Patient Home Medication List Home Medication List Reviewed: Yes Review of Systems Review of Systems Constitutional: see HPI Eyes: See HPI Ears, Nose, Mouth, Throat: see HPI Respiratory: see HPI Cardiovascular: see HPI Gastrointestinal: see HPI Genitourinary: see HPI Musculoskeletal: see HPI Skin: see HPI Psychiatric/Neurological: See HPI All Other Systems Reviewed Negative Unless Noted: Yes Past Runjwah-Vjodyi-Ghoreh Hx Past Med/Social Hx: Reviewed Nursing Past Med/Soc Hx Patient Social History Alcohol Use: Denies Use Smoking Status: Current Everyday Smoker Type Used: Cigarettes 2nd Hand Smoke Exposure: Yes Recent Infectious Disease Expo: No Recent Hopitalizations: No Seasonal Allergies Seasonal Allergies: No Past Medical History Surgeries: Yes (colonoscopy; carpal tunnel) Section, Gallbladder, Hysterectomy, Orthopedic, Tonsillectomy, Tubal Ligation Respiratory: Yes COPD Cardiac: Yes Heart Attack, High Cholesterol, Hypertension Neurological: Yes Headaches /Migraines [employer]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 0oz. 108.921575bn; 48.00 BMI Method:Stated General Appearance: WD/WN, no apparent distress, other (Anxious) HEENT: PERRL/EOMI, normal ENT inspection Neck: non-tender, full range of motion, supple Respiratory: chest non-tender, lungs clear Psychiatric: alert, oriented x 3 Crainal Nerves: PERRL, other (Light sensitivity) Coordination/Gait: normal gait Motor/Sensory: no motor deficit, no sensory deficit Skin: normal color Progress/Results/Core Measures Results/Orders My Orders Orders - RUDDY MORRIS DO Prochlorperazine Tablet (Compazine Table (07/29/20 22:30) Diphenhydramine Tablet (Benadryl Tablet) (07/29/20 22:30) Hydrocodone/Apap 5/325 Tablet (Lortab 5 (07/29/20 22:30) Ketorolac Injection (Toradol Injection) (07/29/20 23:45) Medications Given in ED Current Medications Medications Dose Ordered Sig/Zulema Route Start Time Stop Time Status Last Admin Dose Admin Acetaminophen/ Hydrocodone Bitart 1 ea ONCE ONCE PO 07/29/20 22:30 07/29/20 22:31 DC 07/29/20 22:33 1 EA Diphenhydramine HCl 50 mg ONCE ONCE PO 07/29/20 22:30 07/29/20 22:31 DC 07/29/20 22:33 50 MG Prochlorperazine Maleate 10 mg ONCE ONCE PO 07/29/20 22:30 07/29/20 22:31 DC 5/2/21 22:33 10 MG Vital Signs/I&O 07/29/20 22:06 Temp 36.5 Pulse 107 Resp 22 B/P (MAP) 155/98 (117) O2 Delivery Room Air Blood Pressure Mean: 117 Departure Communication (Admissions) Typical migraine headache. Known neurologic deficits. This is not the worst headache of the patient's life. Medications given with significant improvement. Will discharge home with nausea medications with instructions to take Imitrex and follow-up with PCP as needed. Return precautions reviewed. Impression Primary Impression: Migraine headache Disposition: HOME, SELF-CARE Condition: Stable Departure-Patient Inst. Decision time for Depature: 23:35 Referrals: SELF,HUNG LEE (PCP/Family) Primary Care Physician Patient Instructions: Migraines in Adults Add. Discharge Instructions: Please call me and rest. Take Imitrex and may repeat dose in 1 hour if headache persists. Follow-up with your PCP as needed. All discharge instructions reviewed with patient and/or family. Voiced understanding. Scripts Prochlorperazine Maleate (Compazine) 10 Mg Tablet 10 MG PO Q8H, #10 TAB Prov: RUDDY MORRIS DO 07/29/20 RUDDY MORRIS DO July 29, 2020 22:41
[2020-07-29] MEDS ORDERED: PROC-1 PO (23:36)
[2020-07-29 23:42] VITALS: BP 132/77
[2020-07-29] MEDS ORDERED: KETOROLAC 60 MG/2 ML VIAL IM ONE (23:45)
== END 2020-07-29 23:42 | disposition home or self-care (01) ==
LOC: EDUNIT# 21:58 → ER FS 22:01
DX: G43.909 Migraine, unspecified, not intractable, without status migrainosus (principal); I25.2 Old myocardial infarction; I10 Essential (primary) hypertension; E11.9 Type 2 diabetes mellitus without complications; F17.210 Nicotine dependence, cigarettes, uncomplicated; Z88.5 Allergy status to narcotic agent; Z88.8 Allergy status to other drugs, medicaments and biological substances
CPT/HCPCS: 99284

== ENCOUNTER 2020-09-03 12:27 | Emergency (ER) | payer MEDICAID ==
[~2020-09-03] VITALS: Ht 165.1 cm; Wt 132.4 kg
[~2020-09-03 12:27] MED LIST changes: +PROC-1 PO
--- NOTE | 2020-09-03 12:42 | ED Neurological Problem ---
General Stated Complaint: LT SIDED WEAKNESS; FACIAL DROOP History of Present Illness Date Seen by Provider: Sep 03, 2020 Time Seen by Provider: 12:30 Initial Comments 50-year-old female presents with what she feels like is some left-sided weakness and facial droop. Patient reports that she thinks that yesterday afternoon she may have had a stroke. Patient reports that she has had 2 previous strokes that affected that side. She states that happened around 430 yesterday afternoon while she was taking a nap. Today she feels like her left arm and left leg are heavier than normal and it may be she is a little off balance to the left. Patient reports that she did not come in because she thought was too late. Patient reports that she was at hydrotherapy today and they told her to come over and be evaluated. No other systemic complaints. Allergies and Home Medications Allergies Coded Allergies: morphine (Verified Allergy, Intermediate, Itching, 09/22/18) May take it with Benadryl bupropion (Verified Allergy, Unknown, 09/22/18) Home Medications Prochlorperazine Maleate 10 Mg Tablet, 10 MG PO Q8H Prescribed by: RUDDY MORRIS on 07/29/20 2519 Patient Home Medication List Home Medication List Reviewed: Yes Review of Systems Review of Systems Constitutional: No chills, No fever Eyes: No Symptoms Reported Ears, Nose, Mouth, Throat: no symptoms reported Respiratory: No cough, No short of breath Cardiovascular: No chest pain, No palpitations Gastrointestinal: No abdominal pain, No nausea, No vomiting Musculoskeletal: see HPI Skin: no symptoms reported Psychiatric/Neurological: See HPI Endocrine: No Symptoms Reported Hematologic/Lymphatic: No Symptoms Reported Past Enrttdr-Wywfjg-Slecbw Hx Past Med/Social Hx: Reviewed Nursing Past Med/Soc Hx Patient Social History Type Used: Cigarettes 2nd Hand Smoke Exposure: Yes Recent Hopitalizations: No Seasonal Allergies Seasonal Allergies: No Past Medical History Surgeries: Yes (colonoscopy; carpal tunnel) Section, Gallbladder, Hysterectomy, Orthopedic, Tonsillectomy, Tubal Ligation Respiratory: Yes COPD Cardiac: Yes Heart Attack, High Cholesterol, Hypertension Neurological: Yes Headaches /Migraines 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 0oz. [id number]; 48.00 BMI Method:Stated General Appearance: no apparent distress, obese (Morbid) HEENT: PERRL/EOMI, pharynx normal Neck: full range of motion, supple Respiratory: lungs clear Cardiovascular: normal peripheral pulses, regular rate, rhythm Gastrointestinal: non tender, soft Extremities: normal range of motion, non-tender Neurologic/Psychiatric: alert, normal mood/affect, oriented x 3 Crainal Nerves: normal speech Coordination/Gait: normal gait, other (No obvious deficiency) Motor/Sensory: weak motor strength LUE (4 out of 5/5 out of 5), weak motor strength LLE (4-5/5 out of 5), other (Patient's exam with weakness and mild facial droop seems to be more intentional. Patient shows no signs when not having intentional exam performed) Reflexes: 2+ Knee (R), 2+ Knee (L) Skin: normal color, warm/dry Progress/Results/Core Measures Results/Orders Lab Results Laboratory Tests Test 09/03/20 12:38 09/03/20 12:47 09/03/20 13:30 Range/Units White Blood Count 12.3 H 4.3-11.0 10^3/uL Red Blood Count 4.67 4.35-5.85 10^6/uL Hemoglobin 14.7 11.5-16.0 G/DL Hematocrit 45 35-52 % Mean Corpuscular Volume 96 80-99 FL Mean Corpuscular Hemoglobin 31 25-34 PG Mean Corpuscular Hemoglobin Concent 33 32-36 G/DL Red Cell Distribution Width 13.2 10.0-14.5 % Platelet Count 266 130-400 10^3/uL Mean Platelet Volume 10.4 7.4-10.4 FL Immature Granulocyte % (Auto) 1 % Neutrophils (%) (Auto) 68 42-75 % Lymphocytes (%) (Auto) 22 12-44 % Monocytes (%) (Auto) 6 0-12 % Eosinophils (%) (Auto) 2 0-10 % Basophils (%) (Auto) 1 0-10 % Neutrophils # (Auto) 8.4 H 1.8-7.8 X 10^3 Lymphocytes # (Auto) 2.7 1.0-4.0 X 10^3 Monocytes # (Auto) 0.8 0.0-1.0 X 10^3 Eosinophils # (Auto) 0.2 0.0-0.3 10^3/uL Basophils # (Auto) 0.1 0.0-0.1 10^3/uL Immature Granulocyte # (Auto) 0.1 0.0-0.1 10^3/uL Prothrombin Time 11.9 L 12.2-14.7 SEC INR Comment 0.9 0.8-1.4 Activated Partial Thromboplast Time 26 24-35 SEC Sodium Level 139 135-145 MMOL/L Potassium Level 5.0 3.6-5.0 MMOL/L Chloride Level 103 98-107 MMOL/L Carbon Dioxide Level 25 21-32 MMOL/L Anion Gap 11 5-14 MMOL/L Blood Urea Nitrogen 13 7-18 MG/DL Creatinine 0.61 0.60-1.30 MG/DL Estimat Glomerular Filtration Rate > 60 BUN/Creatinine Ratio 21 Glucose Level 215 H 70-105 MG/DL Calcium Level 9.1 8.5-10.1 MG/DL Corrected Calcium 9.4 8.5-10.1 MG/DL Total Bilirubin < 0.2 0.1-1.0 MG/DL Aspartate Amino Transf (AST/SGOT) 16 5-34 U/L Alanine Aminotransferase (ALT/SGPT) 15 0-55 U/L Alkaline Phosphatase 102 40-136 U/L Troponin I < 0.30 <0.30 NG/ML Total Protein 6.7 6.4-8.2 GM/DL Albumin 3.6 3.2-4.5 GM/DL Glucometer 197 H 70-110 MG/DL My Orders Orders - TAYLOR,RENETTA L DO Cbc With Automated Diff (09/03/20 12:34) Protime With Inr (09/03/20 12:34) Partial Thromboplastin Time (09/03/20 12:34) Comprehensive Metabolic Panel (09/03/20 12:34) Troponin I Fs (09/03/20 12:34) Ua Culture If Indicated (09/03/20 12:34) Chest 1 View Ap/Pa Only (09/03/20 12:34) Ekg Tracing (09/03/20 12:34) Accucheck Stat ONCE (09/03/20 12:34) Ed Iv/Invasive Line Start (09/03/20 12:34) Vital Signs Stroke Patient Q15M (09/03/20 12:34) Ct Head Wo-R/O Stroke (09/03/20 12:34) Monitor-Rhythm Ecg Trace Only (09/03/20 12:34) Dysphagia Screening Tool (09/03/20 12:34) Vital Signs/I&O 09/03/20 12:39 Temp 36.4 Pulse 84 Resp 16 B/P (MAP) 142/108 (119) Pulse Ox 95 O2 Delivery Room Air Initial ECG Impression Date: Sep 03, 2020 Initial ECG Impression Time: 13:00 Initial ECG Rhythm: Normal Sinus Initial ECG Intervals: Normal Initial ECG Impression: Nonspecific Changes Comment no acute findings, old ekg changes Diagnostic Imaging Diagonstic Imaging: CT Plain Films/CT/US/NM/MRI: head Comments CT HEAD WO-R/O STROKE PROCEDURE: CT head wo r/o stroke. TECHNIQUE: Multiple contiguous axial images were obtained through the brain without the use of intravenous contrast. Auto Exposure Controls were utilized during the CT exam to meet ALARA standards for radiation dose reduction. INDICATION: Left-sided weakness, previous history of stroke. I have no relevant comparisons. FINDINGS: There is no intracerebral hemorrhage. There is no sulcal effacement. No appreciable focal or generalized cerebral edema. The sulci non-effaced. The lowery-white matter differentiations maintained. There is no suspicious asymmetric intraluminal arterial hyperdensities. No mass or mass effect. There is no hydrocephalus. The basilar cisterns are patent. There is a focal area of encephalomalacia in the posterior medial and inferior aspect of the left occipital lobe consistent with an old remote infarct. IMPRESSION: Old remote infarct left occipital lobe. No edema, hemorrhage or acute appearing abnormality identified. Reviewed: Reviewed by Me, Reviewed/Discussed Diagonstic Imaging: Xray Plain Films/CT/US/NM/MRI: chest Comments ate of Exam:09/03/20 CHEST 1 VIEW AP/PA ONLY INDICATION: Left weakness. FINDINGS: The heart size, mediastinal configuration, and pulmonary vascularity are within normal limits. There is no pleural effusion, pneumothorax, or pneumonia. The osseous structures are unremarkable. IMPRESSION: No acute cardiopulmonary abnormality. Departure Impression Primary Impression: Cerebrovascular accident due to cerebral artery occlusion Disposition: 01 HOME, SELF-CARE Condition: Stable Departure-Patient Inst. Referrals: SELFHUNG MD (PCP/Family) Primary Care Physician Patient Instructions: Risk Factors for Stroke, Stroke (DC), Transient Ischemic Attack (DC) Add. Discharge Instructions: Follow-up with your primary care provider for medication optimization and help with quitting smoking RENETTA TAYLOR DO Sep 03, 2020 12:42
[2020-09-03 12:53] LABS: HEMATOCRIT 45 % (35-52); HEMOGLOBIN 14.7 G/DL (11.5-16.0); MEAN CORPUSCULAR HEMOGLOBIN 31 PG (25-34); MEAN CORPUSCULAR HGB CONC 33 G/DL (32-36); MEAN CORPUSCULAR VOLUME 96 FL (80-99); MEAN PLATELET VOLUME 10.4 FL (7.4-10.4); PLATELET COUNT 266 10^3/uL (130-400); WHITE BLOOD COUNT 12.3 10^3/uL (4.3-11.0)
[2020-09-03 12:54] LABS: BASOPHILS # (AUTO) 0.1 10^3/uL (0.0-0.1); BASOPHILS % (AUTO) 1 % (0-10); EOSINOPHILS # (AUTO) 0.2 10^3/uL (0.0-0.3); EOSINOPHILS % (AUTO) 2 % (0-10); LYMPHOCYTES # (AUTO) 2.7 X 10^3 (1.0-4.0); LYMPHOCYTES % (AUTO) 22 % (12-44); MONOCYTES # (AUTO) 0.8 X 10^3 (0.0-1.0); MONOCYTES % (AUTO) 6 % (0-12); NEUTROPHILS # (AUTO) 8.4 X 10^3 (1.8-7.8); NEUTROPHILS % (AUTO) 68 % (42-75)
[2020-09-03 13:06] LABS: INR 0.9 (0.8-1.4); PROTHROMBIN TIME PATIENT 11.9 SEC (12.2-14.7)
[2020-09-03 13:10] LABS: CHLORIDE 103 MMOL/L (98-107); SODIUM 139 MMOL/L (135-145)
[2020-09-03 13:11] LABS: ALANINE AMINOTRANSFERASE 15 U/L (0-55); ALKALINE PHOSPHATASE 102 U/L (40-136); BILIRUBIN,TOTAL < 0.2 MG/DL (0.1-1.0); BUN/CREATININE RATIO 21; CALCIUM 9.1 MG/DL (8.5-10.1); CARBON DIOXIDE 25 MMOL/L (21-32); CREATININE SERUM 0.61 MG/DL (0.60-1.30); GFR ESTIMATED > 60; GLUCOSE 215 MG/DL (70-105); TOTAL PROTEIN 6.7 GM/DL (6.4-8.2)
[2020-09-03 13:12] LABS: ALBUMIN 3.6 GM/DL (3.2-4.5)
--- NOTE | 2020-09-03 13:20 | Diagnostic Imaging Report ---
PROCEDURE: CT head wo r/o stroke. TECHNIQUE: Multiple contiguous axial images were obtained through the brain without the use of intravenous contrast. Auto Exposure Controls were utilized during the CT exam to meet ALARA standards for radiation dose reduction. INDICATION: Left-sided weakness, previous history of stroke. I have no relevant comparisons. FINDINGS: There is no intracerebral hemorrhage. There is no sulcal effacement. No appreciable focal or generalized cerebral edema. The sulci non-effaced. The lowery-white matter differentiations maintained. There is no suspicious asymmetric intraluminal arterial hyperdensities. No mass or mass effect. There is no hydrocephalus. The basilar cisterns are patent. There is a focal area of encephalomalacia in the posterior medial and inferior aspect of the left occipital lobe consistent with an old remote infarct. IMPRESSION: Old remote infarct left occipital lobe. No edema, hemorrhage or acute appearing abnormality identified. Dictated by: Dictated on workstation # [id number]
--- NOTE | 2020-09-03 13:30 | Diagnostic Imaging Report ---
INDICATION: Left weakness. FINDINGS: The heart size, mediastinal configuration, and pulmonary vascularity are within normal limits. There is no pleural effusion, pneumothorax, or pneumonia. The osseous structures are unremarkable. IMPRESSION: No acute cardiopulmonary abnormality. Dictated by: Dictated on workstation # [id number]
[2020-09-03 14:00] VITALS: BP 165/87
[2020-09-03 14:00] LABS: CLARITY,URINE CLOUDY; COLOR,URINE YELLOW; GLUCOSE, URINE (UA) NEGATIVE (NEGATIVE); KETONES,URINE NEGATIVE (NEGATIVE); NITRITE,URINE POSITIVE (NEGATIVE); PH,URINE 5.5 (5-9); PROTEIN,URINE NEGATIVE (NEGATIVE)
[2020-09-03 14:01] LABS: BACTERIA,URINE MODERATE /HPF; BILIRUBIN,URINE NEGATIVE (NEGATIVE); LEUKOCYTE ESTERASE ,URINE NEGATIVE (NEGATIVE)
== END 2020-09-03 13:59 | disposition home or self-care (01) ==
LOC: EDUNIT# 12:27 → ER FS 12:29
DX: I63.59 Cerebral infarction due to unspecified occlusion or stenosis of other cerebral artery (principal); E66.01 Morbid (severe) obesity due to excess calories; Z68.42 Body mass index [BMI] 45.0-49.9, adult; J44.9 Chronic obstructive pulmonary disease, unspecified; I10 Essential (primary) hypertension; E11.9 Type 2 diabetes mellitus without complications; I25.2 Old myocardial infarction; Z77.22 Contact with and (suspected) exposure to environmental tobacco smoke (acute) (chronic); Z88.5 Allergy status to narcotic agent; Z88.8 Allergy status to other drugs, medicaments and biological substances
CPT/HCPCS: 36415; 70450; 71045; 80053; 81000; 82947; 84484; 85025; 85610; 85730; 87088; 93005; 93041

== ENCOUNTER 2020-09-09 01:23 | Emergency (ER) | payer MEDICAID ==
[~2020-09-09] VITALS: Ht 165.1 cm; Wt 118.8 kg
--- NOTE | 2020-09-09 01:44 | ED Dyspnea ---
General Chief Complaint: Respiratory Problems Stated Complaint: TROUBLE BREATHING Source of Information: Patient History of Present Illness Date Seen by Provider: Sep 09, 2020 Time Seen by Provider: 01:26 Initial Comments 50-year-old female presenting with complaints of shortness of breath that got worse today. She states she has a history of COPD and feels that that is flared up. She has been trying her inhaler but it is lasted for hours to the next dose. She denies any fever or chills. She has continued to smoke and not quit. She feels more short of breath this evening. She says that she is not bringing anything up when she coughs except occasionally. Timing/Duration: 24 Hours Severity: Severe Activities at Onset: None Prior Episodes/Possible Cause: Chronic Episodes, Frequent Episodes Modifying Factors: Worse With Activity Associated Symptoms: Anxiety, Cough, Wheezing Allergies and Home Medications Allergies Coded Allergies: morphine (Verified Allergy, Intermediate, Itching, 09/22/18) May take it with Benadryl bupropion (Verified Allergy, Unknown, 09/22/18) Home Medications Prochlorperazine Maleate 10 Mg Tablet, 10 MG PO Q8H Prescribed by: RUDDY MORRIS on 07/29/20 7487 Patient Home Medication List Home Medication List Reviewed: Yes Review of Systems Review of Systems Constitutional: No chills, No fever EENTM: no symptoms reported Respiratory: cough, dyspnea on exertion, phlegm (occasionally), short of breath, wheezing Cardiovascular: chest pain (tightness) Gastrointestinal: no symptoms reported Genitourinary: no symptoms reported Musculoskeletal: no symptoms reported Skin: no symptoms reported Psychiatric/Neurological: Anxiety Past Afgmnwd-Fgkacw-Btbyjh Hx Past Med/Social Hx: Reviewed Nursing Past Med/Soc Hx Patient Social History Type Used: Cigarettes 2nd Hand Smoke Exposure: Yes Recent Hopitalizations: No Seasonal Allergies Seasonal Allergies: No Past Medical History Surgeries: Yes (colonoscopy; carpal tunnel) Section, Gallbladder, Hysterectomy, Orthopedic, Tonsillectomy, Tubal Ligation Respiratory: Yes COPD Cardiac: Yes Heart Attack, High Cholesterol, Hypertension Neurological: Yes Headaches /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 0oz. [id number]; 48.00 BMI Method:Stated General Appearance: Moderate Distress, Obese HEENT: PERRL/EOMI Neck: Supple Respiratory: Chest Non Tender, Decreased Breath Sounds; No Stridor; Wheezing Cardiovascular: Regular Rate, Rhythm, Normal Peripheral Pulses Gastrointestinal: No Pulsatile Mass, Non Tender, Soft Rectal: Deferred Extremity: Normal Capillary Refill, Normal Range of Motion Neurologic/Psychiatric: Alert, Oriented x3, tent finisher II-XII Norm as Tested Skin: Normal Color, Warm/Dry Progress/Results/Core Measures Results/Orders Lab Results Laboratory Tests Test 09/09/20 01:42 Range/Units White Blood Count 11.5 H 4.3-11.0 10^3/uL Red Blood Count 4.47 4.35-5.85 10^6/uL Hemoglobin 14.0 11.5-16.0 G/DL Hematocrit 43 35-52 % Mean Corpuscular Volume 96 80-99 FL Mean Corpuscular Hemoglobin 31 25-34 PG Mean Corpuscular Hemoglobin Concent 33 32-36 G/DL Red Cell Distribution Width 13.2 10.0-14.5 % Platelet Count 253 130-400 10^3/uL Mean Platelet Volume 10.3 7.4-10.4 FL Immature Granulocyte % (Auto) 1 % Neutrophils (%) (Auto) 62 42-75 % Lymphocytes (%) (Auto) 28 12-44 % Monocytes (%) (Auto) 7 0-12 % Eosinophils (%) (Auto) 2 0-10 % Basophils (%) (Auto) 1 0-10 % Neutrophils # (Auto) 7.1 1.8-7.8 X 10^3 Lymphocytes # (Auto) 3.2 1.0-4.0 X 10^3 Monocytes # (Auto) 0.8 0.0-1.0 X 10^3 Eosinophils # (Auto) 0.2 0.0-0.3 10^3/uL Basophils # (Auto) 0.1 0.0-0.1 10^3/uL Immature Granulocyte # (Auto) 0.1 0.0-0.1 10^3/uL Sodium Level 138 135-145 MMOL/L Potassium Level 4.7 3.6-5.0 MMOL/L Chloride Level 102 98-107 MMOL/L Carbon Dioxide Level 27 21-32 MMOL/L Anion Gap 9 5-14 MMOL/L Blood Urea Nitrogen 11 7-18 MG/DL Creatinine 0.59 L 0.60-1.30 MG/DL Estimat Glomerular Filtration Rate > 60 BUN/Creatinine Ratio 19 Glucose Level 192 H 70-105 MG/DL Calcium Level 9.1 8.5-10.1 MG/DL Corrected Calcium 9.6 8.5-10.1 MG/DL Total Bilirubin < 0.2 0.1-1.0 MG/DL Aspartate Amino Transf (AST/SGOT) 13 5-34 U/L Alanine Aminotransferase (ALT/SGPT) 13 0-55 U/L Alkaline Phosphatase 92 40-136 U/L Total Protein 6.4 6.4-8.2 GM/DL Albumin 3.4 3.2-4.5 GM/DL My Orders Orders - MYKEL POLANCO MD Cbc With Automated Diff (09/09/20 01:37) Comprehensive Metabolic Panel (09/09/20 01:37) Chest 1 View Ap/Pa Only (09/09/20 01:37) Albuterol/Ipra Inhalation Soln (Duoneb I (09/09/20 01:45) O2 (09/09/20 01:37) Ed Iv/Invasive Line Start (09/09/20 01:37) Sputum Culture (09/09/20 01:37) Monitor-Rhythm Ecg Trace Only (09/09/20 01:37) Svn Small Volume Nebulizer (09/09/20 01:37) Medications Given in ED Current Medications Medications Dose Ordered Sig/Zulema Route Start Time Stop Time Status Last Admin Dose Admin Albuterol/ Ipratropium 3 ml ONCE ONCE INH 09/09/20 01:45 09/09/20 01:46 DC 09/09/20 01:43 3 ML Vital Signs/I&O 09/09/20 6 01:29 01:43 Temp 35.9 Pulse 82 Resp 24 B/P (MAP) 146/90 (108) Pulse Ox 94 94 O2 Delivery Room Air Progress Progress Note #1: Progress Note Patient refused IV start stating that she was a very hard stick. We will try to check lab and get x-ray. Try breathing treatment. Progress Note #2: Progress Note On my review of her 1 view chest x-ray reviewed appears stable from 03 September. Her CBC and chemistry were stable without acute significant normality. Her breat kanchan was improved after the DuoNeb breathing treatment. When reviewing results with patient she stated that she felt like it was just her COPD and she does have a nebulizer available for her to use at home. We will also send a spacer with her so that she can present with her inhaler. She plans to follow-up through the clinic with Dr. Viveros and check with [facility] about obtaining a nebulizer and more advanced treatments for her COPD. As there are no signs for infection defer steroid or antibiotics. Encourage her to drink plenty of fluids, stop smoking and use the spacer with the inhaler. Diagnostic Imaging Diagonstic Imaging: Xray Plain Films/CT/US/NM/MRI: chest Comments On my review of her chest x-ray there is no acute process. This appears stable from September 032020 Reviewed: Reviewed by Me Departure Impression Primary Impression: COPD with exacerbation Additional Impressions: Shortness of breath Tobacco abuse Disposition: 01 HOME, SELF-CARE Condition: Stable Departure-Patient Inst. Decision time for Depature: 03:02 Referrals: HUNG VIVEROS MD (PCP/Family) Primary Care Physician Patient Instructions: COPD Exacerbation, Adult ED, Shortness of Breath, Adult ED, COPD Diet, How to Use a Spacer Add. Discharge Instructions: Use spacer with inhaler to get more of your medicine into your lungs. Follow up with clinic if not improving or having more problems All discharge instructions reviewed with patient and/or family. Voiced understanding. MYKEL POLANCO MD Sep 09, 2020 01:44
[2020-09-09] MEDS ORDERED: RT-ALBUTEROL/IPRATROPIUM 3 ML (DUONEB) VIAL INH ONE (01:45)
[2020-09-09 02:05] LABS: HEMATOCRIT 43 % (35-52); MEAN CORPUSCULAR HEMOGLOBIN 31 PG (25-34); MEAN CORPUSCULAR HGB CONC 33 G/DL (32-36); MEAN CORPUSCULAR VOLUME 96 FL (80-99); MEAN PLATELET VOLUME 10.3 FL (7.4-10.4); PLATELET COUNT 253 10^3/uL (130-400); WHITE BLOOD COUNT 11.5 10^3/uL (4.3-11.0)
[2020-09-09 02:06] LABS: BASOPHILS # (AUTO) 0.1 10^3/uL (0.0-0.1); BASOPHILS % (AUTO) 1 % (0-10); EOSINOPHILS # (AUTO) 0.2 10^3/uL (0.0-0.3); EOSINOPHILS % (AUTO) 2 % (0-10); LYMPHOCYTES # (AUTO) 3.2 X 10^3 (1.0-4.0); LYMPHOCYTES % (AUTO) 28 % (12-44); MONOCYTES # (AUTO) 0.8 X 10^3 (0.0-1.0); MONOCYTES % (AUTO) 7 % (0-12); NEUTROPHILS # (AUTO) 7.1 X 10^3 (1.8-7.8); NEUTROPHILS % (AUTO) 62 % (42-75)
[2020-09-09 02:25] LABS: ALANINE AMINOTRANSFERASE 13 U/L (0-55); ALBUMIN 3.4 GM/DL (3.2-4.5); ALKALINE PHOSPHATASE 92 U/L (40-136); BILIRUBIN,TOTAL < 0.2 MG/DL (0.1-1.0); BUN/CREATININE RATIO 19; CALCIUM 9.1 MG/DL (8.5-10.1); CARBON DIOXIDE 27 MMOL/L (21-32); CHLORIDE 102 MMOL/L (98-107); CREATININE SERUM 0.59 MG/DL (0.60-1.30); GFR ESTIMATED > 60; GLUCOSE 192 MG/DL (70-105); POTASSIUM 4.7 MMOL/L (3.6-5.0); SODIUM 138 MMOL/L (135-145); TOTAL PROTEIN 6.4 GM/DL (6.4-8.2)
[2020-09-09 03:08] VITALS: BP 110/57
--- NOTE | 2020-09-09 07:17 | Diagnostic Imaging Report ---
HISTORY: Shortness of breath COMPARISON: 09/03/2020 TECHNIQUE: Frontal view chest FINDINGS: Lung volumes are mildly low. No focal consolidation is seen. Haziness over the lungs is thought to be due to overlying soft tissue and is similar to the prior exam. No pleural effusion or pneumothorax is seen. The cardiac silhouette is normal in size. IMPRESSION: 1. Mildly low lung volumes with no acute pulmonary abnormality seen. Dictated by: Dictated on workstation # [id number]
[2020-09-10] MEDS ORDERED: CIPR-225 PO (15:54)
== END 2020-09-09 03:03 | disposition home or self-care (01) ==
LOC: EDUNIT# 01:23 → ER FS 01:25
DX: J44.1 Chronic obstructive pulmonary disease with (acute) exacerbation (principal); R06.02 Shortness of breath; E66.9 Obesity, unspecified; I25.2 Old myocardial infarction; I10 Essential (primary) hypertension; E11.9 Type 2 diabetes mellitus without complications; F17.200 Nicotine dependence, unspecified, uncomplicated; Z68.42 Body mass index [BMI] 45.0-49.9, adult
CPT/HCPCS: 36415; 71045; 80053; 85025; 94640

== ENCOUNTER → 2020-09-21 | Outpatient (CLI) | payer MEDICAID ==
[~2020-09-21] MED LIST changes: +CIPR-225 PO
--- NOTE | 2020-09-21 15:00 | Diagnostic Imaging Report ---
PROCEDURE: US carotid duplex, bilateral. TECHNIQUE: Multiple real-time grayscale images were obtained over the carotid arteries in various projections, bilaterally. Additional spectral analysis and color Doppler duplex images were also obtained. INDICATION: Ischemic stroke There are no prior studies available for comparison. FINDINGS: There is mild hard and soft plaque formation of both carotid bifurcations. Flow velocities failed to show any sign of a hemodynamically significant stenosis of the common or internal carotid arteries. Both vertebral arteries were identified and there was antegrade flow bilaterally. IMPRESSION: There is mild atherosclerotic disease involving both carotid systems but there is no evidence for hemodynamically significant stenosis of the common or internal carotid arteries. Parameters based on the consensus panel Rea-Scale and Doppler ultrasound criteria published January 2003, Radiology, Volume 229. DOPPLER (peak systolic velocity M/S Right Left CCA .70 .63 ICA Proximal .88 .61 ICA Mid .90 .70 ICA Distal 1.3 .5 RATIO 1.8 1.1 ECA .9 1.1 VERT .32 .44 Dictated by: Dictated on workstation # [id number]
== END ==
LOC: CARD 13:00
PROVIDERS: ATTEND Family Medicine
DX: I63.9 Cerebral infarction, unspecified (principal); I65.23 Occlusion and stenosis of bilateral carotid arteries
CPT/HCPCS: 93306; 93880

== ENCOUNTER 2021-06-18 19:57 | Emergency (ER) | payer MEDICAID ==
[~2021-06-18] VITALS: Ht 165 cm; Wt 136.0 kg
[~2021-06-18 19:57] MED LIST changes: +CYCL10TA25; -CYCL10TA9
[2021-06-18 20:08] VITALS: BP 191/93
[2021-06-18] MEDS ORDERED: PROCHLORPERAZINE 10 MG/2ML INJ (COMPAZINE) IV ONE (20:30)
[2021-06-18] MEDS ORDERED: KETOROLAC 30 MG/ML VIAL IVP ONE (20:30)
[2021-06-18] MEDS ORDERED: NS IV 1000 ML 1,000 ML IV SCH (20:30)
--- NOTE | 2021-06-18 21:39 | ED General ---
General Chief Complaint: Head/Cervical Problems Stated Complaint: HEADACHE,NAUSEA Nursing Triage Note: PT PRESENTS WITH C/O H/A, PHOTOPHOBIA, AND SOUND SENSITIVITY FOR THE LAST 30MINS. REPORTS HX OF MIGRAINES. Source of Information: Patient Exam Limitations: No Limitations History of Present Illness Date Seen by Provider: Jun 18, 2021 Time Seen by Provider: 20:00 Initial Comments Patient is a 51-year-old female who presents with typical migraine headache starting 40 minutes prior to ED arrival. Patient reports temporal and cervical headache with photophobia and sound sensitivity. Similar to previous migraines. Patient is currently out of migraine medication. No medications or therapies taken prior to ED arrival. Unknown trigger, although patient speculates that it may be weather related. Reports nausea without vomiting. No fevers chills, neck pain stiffness rash. No extremity weakness or loss of sensation. This is not the worst headache of the patient's life. No other acute symptoms or complaints Timing/Duration: 1 Hour Modifying Factors: improves with Other Associated Systoms: Other Allergies and Home Medications Allergies Coded Allergies: morphine (Verified Allergy, Intermediate, Itching, 09/22/18) May take it with Benadryl bupropion (Verified Allergy, Unknown, 09/22/18) Patient Home Medication List Home Medication List Reviewed: Yes Alprazolam (Alprazolam) 0.5 Mg Tablet, (Reported) Entered as Reported by: THUY TELLEZ on 09/07/181828 Blood-Glucose Meter (Onetouch Ultra2) 1 Each Kit, (Reported), (DME) Entered as Reported by: THUY TELLEZ on 09/07/181828 Bupropion HCl (Bupropion HCl Sr) 150 Mg Tablet.er, (Reported) Entered as Reported by: THUY TELLEZ on 09/07/181828 Ciprofloxacin HCl (Cipro) 500 Mg Tablet, 500 MG PO BID, (Reported) Entered as Reported by: MIRZA DEGROOT on 09/10/201553 Cyclobenzaprine HCl (Cyclobenzaprine HCl) 10 Mg Tablet, (Reported) Entered as Reported by: THUY TELLEZ on 09/07/181828 Glimepiride (Glimepiride) 1 Mg Tablet, (Reported) Entered as Reported by: GARDENIA UGARTE on 09/22/181946 Glucagon,Human Recombinant (Glucagon Emergency Kit) 1 Mg/Kit Soln, (Reported) Entered as Reported by: THUY TELLEZ on 09/07/181828 Insuln Asp Prt/Insulin Aspart (Novolog Mix 70-30 Vial) 1 Unit/0.01 Ml Susp, (Reported) Entered as Reported by: GARDENIA UGARTE on 09/22/181946 Lancets (Onetouch Delica) 1 Each Each, (Reported), (DME) Entered as Reported by: THUY TELLEZ on 09/07/181828 Loratadine (Loratadine) 10 Mg Tablet, (Reported) Entered as Reported by: THUY TELLEZ on 09/07/181828 Prochlorperazine Maleate (Compazine) 10 Mg Tablet, 10 MG PO Q8H Prescribed by: RUDDY MORRIS on 07/29/202335 Ranitidine HCl (Ranitidine HCl) 150 Mg Tablet, (Reported) Entered as Reported by: THUY TELLEZ on 09/07/181828 Sulfamethoxazole/Trimethoprim (Sulfamethoxazole-Tmp Ds Tablet) 1 Each Tablet, (Reported) Entered as Reported by: THUY TELLEZ on 09/07/181828 Tramadol HCl (Tramadol HCl) 50 Mg Tablet, (Reported) Entered as Reported by: THUY TELLEZ on 09/07/181828 Varenicline Tartrate (Chantix) 1 Each Tab.ds.pk, (Reported) Entered as Reported by: GARDENIA UGARTE on 09/22/181946 Review of Systems Review of Systems Constitutional: see HPI EENTM: see HPI Respiratory: see HPI Cardiovascular: see HPI Gastrointestinal: see HPI Genitourinary: see HPI Musculoskeletal: see HPI Skin: see HPI Psychiatric/Neurological: See HPI Hematologic/Lymphatic: See HPI Immunological/Allergic: see HPI All Other Systems Reviewed Negative Unless Noted: Yes Past Xizhrvc-Jhptcd-Xknvkn Hx Patient Social History Tobacco Use?: Yes Tobacco type used: Cigarettes Smoking Status: Current Everyday Smoker Substance use?: No Alcohol Use?: No Pt feels they are or have been: No Immunizations Up To Date Influenza Vaccine Up-to-Date: Yes; Up-to-Date First/Initial COVID19 Vaccinat: UNKNOWN DATE Second COVID19 Vaccination Alcides: UNKNOWN DATE Seasonal Allergies Seasonal Allergies: No Past Medical History Surgeries: Yes (colonoscopy; carpal tunnel) Section, Gallbladder, Hysterectomy, Orthopedic, Tonsillectomy, Tubal Ligation Respiratory: Yes COPD Cardiac: Yes Heart Attack, High Cholesterol, Hypertension 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 0oz. 108.680849ct; 49.00 BMI Method:Stated General Appearance: No Apparent Distress, WD/WN, Anxious Eyes: Bilateral Eye Normal Inspection, Bilateral Eye PERRL, Bilateral Eye EOMI HEENT: PERRL/EOMI, Pharynx Normal Neck: Normal Inspection, Non Tender Cardiovascular: Regular Rate, Rhythm Neurologic/Psychiatric: Alert, Oriented x3, No Motor/Sensory Deficits Focused Exam Sepsis Stage: Ruled Out Progress/Results/Core Measures Suspected Sepsis SIRS Temperature: Pulse: 83 Respiratory Rate: 22 Blood Pressure 191 /93 Mean: 125 Results/Orders My Orders Orders - RUDDY MORRIS DO Ketorolac Injection (Toradol Injection) (06/18/21 20:30) Prochlorperazine Injection (Compazine In (06/18/21 20:30) Ns Iv 1000 Ml (Sodium Chloride 0.9%) (06/18/21 20:30) Medications Given in ED Current Medications Medications Dose Ordered Sig/Zulema Route Start Time Stop Time Status Last Admin Dose Admin Ketorolac Tromethamine 30 mg ONCE ONCE IVP 06/18/21 20:30 06/18/21 20:31 DC 06/18/21 20:28 30 MG Prochlorperazine Edisylate 10 mg ONCE ONCE IV 06/18/21 20:30 06/18/21 20:31 DC 06/18/21 20:28 10 MG Vital Signs/I&O 06/18/21 06/18/21 06/18/21 20:08 20:25 20:28 Temp 36.1 36.0 Pulse 83 Resp 22 B/P (MAP) 191/93 (125) Pulse Ox 91 92 O2 Delivery Room Air Nasal Cannula O2 Flow Rate 2.00 Capillary Refill : Blood Pressure Mean: 125 Departure Communication (Admissions) Migraine headache. Symptoms resolved or improved with treatment. Recommendations are discharged home with continued supportive care. Home migraine medications refilled. Return precautions reviewed. Patient verbalizes understanding agreement discharge instructions. Impression Primary Impression: Migraine Disposition: HOME, SELF-CARE Condition: Stable Departure-Patient Inst. Decision time for Depature: 21:45 Referrals: SELF,HUNG LEE (PCP/Family) Primary Care Physician Patient Instructions: Migraines in Adults Add. Discharge Instructions: You were evaluated in the emergency department for migraine headache. Please go home and rest and fill medications in the morning. Follow-up with your PCP for further management. Return to the ED if new or worsening symptoms. All discharge instructions reviewed with patient and/or family. Voiced understanding. Scripts Sumatriptan Succinate (Imitrex) 50 Mg Tab 50 MG PO Q1HR PRN for HEADACHE, #10 TAB Prov: RUDDY MORRIS DO 06/18/21 Prochlorperazine Maleate (Compazine) 10 Mg Tablet 10 MG PO Q6H, #10 TAB Prov: RUDDY MORRIS DO 06/18/21 RUDDY MORRIS DO Jun 18, 2021 21:38
[2021-06-18] MEDS ORDERED: SMTR50T PO (21:49)
[2021-06-18] MEDS ORDERED: PROC-1 PO (21:49)
== END 2021-06-18 21:56 | disposition home or self-care (01) ==
LOC: EDUNIT# 19:57 → ER FS 19:58
DX: G43.909 Migraine, unspecified, not intractable, without status migrainosus (principal); F17.210 Nicotine dependence, cigarettes, uncomplicated
CPT/HCPCS: 96374; 96375; 99281

== ENCOUNTER 2022-10-15 13:16 | Emergency (ER) | payer MEDICAID ==
[~2022-10-15 13:16] MED LIST changes: -BLOO-274; +SMTR50T PO; +[UNRECOGNIZED DRUG - CODE]
[2022-10-15] MEDS ORDERED: NS IV 1000 ML 1,000 ML IV STA (13:27)
[2022-10-15] MEDS ORDERED: RT-ALBUTEROL/IPRATROPIUM 3 ML (DUONEB) VIAL INH ONE (13:30)
[2022-10-15 13:38] LABS: BASOPHILS # (AUTO) 0.1 10^3/uL (0.0-0.1); BASOPHILS % (AUTO) 1 % (0-10); EOSINOPHILS # (AUTO) 0.3 10^3/uL (0.0-0.3); EOSINOPHILS % (AUTO) 3 % (0-10); HEMATOCRIT 41 % (35-52); HEMOGLOBIN 12.6 g/dL (11.5-16.0); LYMPHOCYTES # (AUTO) 2.4 10^3/uL (1.0-4.0); LYMPHOCYTES % (AUTO) 20 % (12-44); MEAN CORPUSCULAR HEMOGLOBIN 29 pg (25-34); MEAN CORPUSCULAR HGB CONC 31 g/dL (32-36); MEAN CORPUSCULAR VOLUME 93 fL (80-99); MEAN PLATELET VOLUME 9.7 fL (9.0-12.2); MONOCYTES # (AUTO) 0.7 10^3/uL (0.0-1.0); MONOCYTES % (AUTO) 6 % (0-12); NEUTROPHILS # (AUTO) 8.5 10^3/uL (1.8-7.8); NEUTROPHILS % (AUTO) 70 % (42-75); PLATELET COUNT 298 10^3/uL (130-400); WHITE BLOOD COUNT 12.1 10^3/uL (4.3-11.0)
--- NOTE | 2022-10-15 13:52 | ED General ---
General Chief Complaint: General Problems/Pain Stated Complaint: ABN LABS Source of Information: Patient History of Present Illness Date Seen by Provider: Oct 15, 2022 Time Seen by Provider: 13:18 Initial Comments 52-year-old female presenting from home with complaint of being told that she had abnormal labs. She states they su labs yesterday and Dr. Dye's office called today to tell her that her kidney function was messed up. They advised her to stop the diuretic and the potassium. And to go to the emergency department for IV fluids. She denies having any symptoms to bring her to the emergency department. She did notice that her urine was darker last night but denies any pain or burning. She is short of breath but has COPD and continues to smoke. She is supposed to be on oxygen at home. Associated Systoms: No Chest Pain, No Cough, No Diaphoresis, No Fever/Chills, No Headaches, No Loss of Appetite, No Malaise, No Nausea/Vomiting, No Rash, No Seizure; Shortness of Air (chronic with COPD and continues to smoke cigarettes); No Syncope, No Weakness Allergies and Home Medications Allergies Coded Allergies: morphine (Verified Allergy, Intermediate, Itching, 09/22/18) May take it with Benadryl bupropion (Verified Allergy, Unknown, 09/22/18) Patient Home Medication List Home Medication List Reviewed: Yes Alprazolam (Alprazolam) 0.5 Mg Tablet, (Reported) Entered as Reported by: THUY TELLEZ on 09/07/181828 Blood-Glucose Meter (Onetouch Ultra2) 1 Each Kit, (Reported), (DME) Entered as Reported by: THUY TELLEZ on 09/07/181828 Bupropion HCl (Bupropion HCl Sr) 150 Mg Tablet.er, (Reported) Entered as Reported by: THUY TELLEZ on 09/07/181828 Ciprofloxacin HCl (Cipro) 500 Mg Tablet, 500 MG PO BID, (Reported) Entered as Reported by: MIRZA DEGROOT on 09/10/201553 Cyclobenzaprine HCl (Cyclobenzaprine HCl) 10 Mg Tablet, (Reported) Entered as Reported by: THUY TELLEZ on 09/07/181828 Glimepiride (Glimepiride) 1 Mg Tablet, (Reported) Entered as Reported by: GARDENIA UGARTE on 09/22/181946 Glucagon,Human Recombinant (Glucagon Emergency Kit) 1 Mg/Kit Soln, (Reported) Entered as Reported by: THUY TELLEZ on 09/07/181828 Insuln Asp Prt/Insulin Aspart (Novolog Mix 70-30 Vial) 1 Unit/0.01 Ml Susp, (Reported) Entered as Reported by: GARDENIA UGARTE on 09/22/181946 Lancets (Onetouch Delica) 1 Each Each, (Reported), (DME) Entered as Reported by: THUY TELLEZ on 09/07/181828 Loratadine (Loratadine) 10 Mg Tablet, (Reported) Entered as Reported by: THUY TELLEZ on 09/07/181828 Prochlorperazine Maleate (Compazine) 10 Mg Tablet, 10 MG PO Q8H Prescribed by: RUDDY MORRIS on 07/29/202335 Prochlorperazine Maleate (Compazine) 10 Mg Tablet, 10 MG PO Q6H Prescribed by: RUDDY MORRIS on 06/18/212148 Ranitidine HCl (Ranitidine HCl) 150 Mg Tablet, (Reported) Entered as Reported by: THUY TELLEZ on 09/07/181828 Sulfamethoxazole/Trimethoprim (Sulfamethoxazole-Tmp Ds Tablet) 1 Each Tablet, (Reported) Entered as Reported by: THUY TELLEZ on 09/07/181828 Sumatriptan Succinate (Imitrex) 50 Mg Tab, 50 MG PO Q1HR PRN for HEADACHE Prescribed by: RUDDY MORRIS on 06/18/212148 Tramadol HCl (Tramadol HCl) 50 Mg Tablet, (Reported) Entered as Reported by: THUY TELLEZ on 09/07/181828 Varenicline Tartrate (Chantix) 1 Each Tab.ds.pk, (Reported) Entered as Reported by: GARDENIA UGARTE on 09/22/181946 Review of Systems Review of Systems Constitutional: No chills, No fever EENTM: no symptoms reported Respiratory: see HPI Cardiovascular: No chest pain Gastrointestinal: No nausea, No vomiting Genitourinary: No dysuria Musculoskeletal: no symptoms reported Skin: no symptoms reported Psychiatric/Neurological: No Symptoms Reported Past Xcyisjd-Qkoavs-Apewru Hx Patient Social History Tobacco Use?: Yes Tobacco type used: Cigarettes Smoking Status: Current Everyday Smoker Immunizations Up To Date First/Initial COVID19 Vaccinat: UNKNOWN DATE Second COVID19 Vaccination Alcides: UNKNOWN DATE Seasonal Allergies Seasonal Allergies: No Past Medical History Surgeries: Yes (colonoscopy; carpal tunnel) Section, Gallbladder, Hysterectomy, Orthopedic, Tonsillectomy, Tubal Ligation Respiratory: Yes COPD Cardiac: Yes Heart Attack, High Cholesterol, Hypertension Neurological: Yes Headaches /Migraines 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 0oz. 108.273340bp; 49.00 BMI Method:Stated General Appearance: No Apparent Distress, Obese HEENT: PERRL/EOMI, Pharynx Normal Respiratory: Chest Non Tender, No Accessory Muscle Use, No Respiratory Distress, Decreased Breath Sounds, Wheezing Cardiovascular: Regular Rate, Rhythm, Normal Peripheral Pulses Gastrointestinal: Normal Bowel Sounds, No Pulsatile Mass, Non Tender, Soft Extremity: Normal Capillary Refill, Normal Inspection, No Pedal Edema Neurologic/Psychiatric: Alert, Oriented x3 Skin: Normal Color, Warm/Dry Progress/Results/Core Measures Suspected Sepsis SIRS Temperature: Pulse: Respiratory Rate: Laboratory Tests 10/15/22 13:31: White Blood Count 12.1H Blood Pressure / Mean: Laboratory Tests 10/15/22 13:31: Creatinine 1.32H, Platelet Count 298, Total Bilirubin 0.2 Results/Orders Lab Results Laboratory Tests Test 10/15/22 13:31 10/15/22 14:00 Range/Units White Blood Count 12.1 H 4.3-11.0 10^3/uL Red Blood Count 4.36 3.80-5.11 10^6/uL Hemoglobin 12.6 11.5-16.0 g/dL Hematocrit 41 35-52 % Mean Corpuscular Volume 93 80-99 fL Mean Corpuscular Hemoglobin 29 25-34 pg Mean Corpuscular Hemoglobin Concent 31 L 32-36 g/dL Red Cell Distribution Width 14.1 10.0-14.5 % Platelet Count 298 130-400 10^3/uL Mean Platelet Volume 9.7 9.0-12.2 fL Immature Granulocyte % (Auto) 1 % Neutrophils (%) (Auto) 70 42-75 % Lymphocytes (%) (Auto) 20 12-44 % Monocytes (%) (Auto) 6 0-12 % Eosinophils (%) (Auto) 3 0-10 % Basophils (%) (Auto) 1 0-10 % Neutrophils # (Auto) 8.5 H 1.8-7.8 10^3/uL Lymphocytes # (Auto) 2.4 1.0-4.0 10^3/uL Monocytes # (Auto) 0.7 0.0-1.0 10^3/uL Eosinophils # (Auto) 0.3 0.0-0.3 10^3/uL Basophils # (Auto) 0.1 0.0-0.1 10^3/uL Immature Granulocyte # (Auto) 0.1 0.0-0.1 10^3/uL Sodium Level 139 135-145 MMOL/L Potassium Level 4.9 3.6-5.0 MMOL/L Chloride Level 102 98-107 MMOL/L Carbon Dioxide Level 27 21-32 MMOL/L Anion Gap 10 5-14 MMOL/L Blood Urea Nitrogen 34 H 7-18 MG/DL Creatinine 1.32 H 0.60-1.30 MG/DL Estimat Glomerular Filtration Rate 48 BUN/Creatinine Ratio 26 Glucose Level 202 H 70-105 MG/DL Calcium Level 9.2 8.5-10.1 MG/DL Corrected Calcium 9.5 8.5-10.1 MG/DL Magnesium Level 2.4 1.6-2.4 MG/DL Total Bilirubin 0.2 0.1-1.0 MG/DL Aspartate Amino Transf (AST/SGOT) 10 5-34 U/L Alanine Aminotransferase (ALT/SGPT) 7 0-55 U/L Alkaline Phosphatase 67 40-136 U/L Total Protein 6.7 6.4-8.2 GM/DL Albumin 3.6 3.2-4.5 GM/DL Urine Color YELLOW Urine Clarity CLEAR Urine pH 5.5 5-9 Urine Specific [place] 1.010 L 1.016-1.022 Urine Protein NEGATIVE NEGATIVE Urine Glucose (UA) 3+ H NEGATIVE Urine Ketones NEGATIVE NEGATIVE Urine Nitrite NEGATIVE NEGATIVE Urine Bilirubin NEGATIVE NEGATIVE Urine Urobilinogen 0.2 < = 1.0 MG/DL Urine Leukocyte Esterase NEGATIVE NEGATIVE Urine RBC (Auto) NEGATIVE NEGATIVE Urine RBC NONE /HPF Urine WBC NONE /HPF Urine Squamous Epithelial Cells 0-2 /HPF Urine Crystals NONE /LPF Urine Bacteria NEGATIVE /HPF Urine Casts NONE /LPF Urine Mucus NEGATIVE /LPF Urine Culture Indicated NO My Orders Orders - MYKEL POLANCO MD Cbc With Automated Diff (10/15/22 13:27) Comprehensive Metabolic Panel (10/15/22 13:27) Albuterol/Ipra Inhalation Soln (Duoneb I (10/15/22 13:30) Magnesium (10/15/22 13:27) Ekg Tracing (10/15/22 13:27) O2 (10/15/22 13:27) Ed Iv/Invasive Line Start (10/15/22 13:27) Monitor-Rhythm Ecg Trace Only (10/15/22 13:27) Svn Small Volume Nebulizer (10/15/22 13:27) Ns Iv 1000 Ml (Sodium Chloride 0.9%) (10/15/22 13:27) Ua Culture If Indicated (10/15/22 13:27) Medications Given in ED Current Medications Medications Dose Ordered Sig/Zulema Route Start Time Stop Time Status Last Admin Dose Admin Albuterol/ Ipratropium 3 ml ONCE ONCE INH 10/15/22 13:30 10/15/22 13:31 DC 10/15/22 13:44 3 ML Vital Signs/I&O 10/15/22 10/15/22 13:23 14:41 Temp 37.0 37.0 Pulse 79 75 Resp 22 22 B/P (MAP) 105/67 (80) 105/58 Pulse Ox 92 96 O2 Delivery Nasal Cannula Nasal Cannula O2 Flow Rate 2.00 Capillary Refill : Progress Note #1: Progress Note Potential diagnosis of electrolyte abnormality, acute renal failure, acute hepatic failure, lab error. Try to obtain records from Dr. Dye's office. Obtain peripheral IV access and administer normal saline 1 L IV fluid bolus since she reports she is here to get fluids. Also send labs to check her complete blood count and comprehensive metabolic profile and magnesium. Send urinalysis to look at hydration. Electrocardiogram for possible hyperkalemia. Progress Note #2: Progress Note Labs showed mild elevation of the white blood cell count to 12.1. On her comprehensive metabolic panel her creatinine was up to 1.32. On review of the paperwork from Dr. Dye's office the creatinine was 1.68 on labs yesterday and 1.02 last week. Encourage patient to stay well-hydrated and continue to hold the Lasix for now. Follow-up with the clinic and have repeat labs in a week as directed by Dr. Dye ECG Initial ECG Impression Date: Oct 15, 2022 Initial ECG Impression Time: 13:37 Initial ECG Rate: 70 Initial ECG Rhythm: Normal Sinus Initial ECG Comparisson: Unchanged (09/03/2020) Comment On my personal interpretation and review her electrocardiogram shows a sinus rhythm with a heart rate of 70 bpm. [place] interval 190 ms. There is no acute ST elevation but she does have some Q waves in the anterior and inferior leads. QT interval 369 ms with a QTc interval 391 ms. Overall appears similar to tracing from September 03, 2020. Departure Impression Primary Impression: Abnormal laboratory test Additional Impression: Acute renal insufficiency Disposition: HOME, SELF-CARE Condition: Stable Departure-Patient Inst. Decision time for Depature: 14:31 Referrals: MANOJ DYE MD (PCP) Primary Care Physician Patient Instructions: Acute Kidney Injury (DC), Kidney Disease Diet (For People Not on Dialysis) Add. Discharge Instructions: Follow up with Dr. Dye for further care and direction on your treatment. Your Creatinine has already improved from 1.68 yesterday to 1.32 today. On October 07 your Creatinine was 1.02. All discharge instructions reviewed with patient and/or family. Voiced understanding. MYKEL POLANCO MD Oct 15, 2022 13:52
[2022-10-15 14:03] LABS: POTASSIUM 4.9 MMOL/L (3.6-5.0)
[2022-10-15 14:04] LABS: ALBUMIN 3.6 GM/DL (3.2-4.5); BILIRUBIN,TOTAL 0.2 MG/DL (0.1-1.0); CALCIUM 9.2 MG/DL (8.5-10.1); CREATININE SERUM 1.32 MG/DL (0.60-1.30); MAGNESIUM 2.4 MG/DL (1.6-2.4); TOTAL PROTEIN 6.7 GM/DL (6.4-8.2)
[2022-10-15 14:32] LABS: BILIRUBIN,URINE NEGATIVE (NEGATIVE); CLARITY,URINE CLEAR; COLOR,URINE YELLOW; GLUCOSE, URINE (UA) 3+ (NEGATIVE); KETONES,URINE NEGATIVE (NEGATIVE); LEUKOCYTE ESTERASE ,URINE NEGATIVE (NEGATIVE); NITRITE,URINE NEGATIVE (NEGATIVE); PH,URINE 5.5 (5-9); PROTEIN,URINE NEGATIVE (NEGATIVE)
[2022-10-15 14:36] LABS: BACTERIA,URINE NEGATIVE /HPF; SQUAMOUS EPITHELIAL CELL,UR 0-2 /HPF
[2022-10-15 14:41] VITALS: BP 105/58
== END 2022-10-15 14:41 | disposition home or self-care (01) ==
LOC: EDUNIT# 13:16 → ER FS 13:17
DX: R79.9 Abnormal finding of blood chemistry, unspecified (principal); D72.829 Elevated white blood cell count, unspecified; N28.9 Disorder of kidney and ureter, unspecified; F17.210 Nicotine dependence, cigarettes, uncomplicated; E11.9 Type 2 diabetes mellitus without complications; Z79.4 Long term (current) use of insulin
CPT/HCPCS: 36415; 80053; 81000; 83735; 85025; 93005